=== PATIENT | female | born 1970 | race Caucasian/White ===

== ENCOUNTER → 2016-12-22 | Outpatient (CLI) | payer MEDICARE ==
[~2016-12-22] MED LIST: /BACL20TA; /BACL20TA OR; /DULO30CA; /DULO30CA OR; ACIDCAP; ACIDCAP OR; ALLE25CA; ALLE25CA OR; ATOR1TAB21 PO; BUSP5TA PO; CALC500T49; CALC500T49 OR; CHAN1PAK9 PO; CYCL10TA PO; DETR4CAP; DETR4CAP OR; EFFE75CA75 PO; EXCEDRINE MIGRAINE; EXCEDRINE OR; FIBER TABS; FIBER TABS OR; FLEX10TA2 PO; FLEXERIL OR; GLUC1000; GLUC1000 OR; IBUP200T2 PO; LISI5TAB PO; LODINE; LODINE PO; MULTIVIT; MULTIVIT OR; Metamucil PO; NEUR400C; NEUR400C OR; OXYB5SYP PO; OXYB5TAB5 OR; PRIL20CA; PRIL20CA OR; PROP10TAB OR; PROP20TA2; PROP60TA; PROP60TA OR; ROSU10TA PO; SOMA350T OR; TIZA2TAB3 PO; TOPA25TA PO; TOPI100T; TOPI100T OR; TOPI100T PO; TOPI25TA2; TRAM100T; TRAM100T OR; TRAM50TA2 OR; TYLE325T5 PO; VENL75CA47 PO; VENL75TA2 OR; ZANA2CAP OR; ZANA4CAP; [UNRECOGNIZED DRUG - OTHER]
--- NOTE | 2016-12-23 23:48 | ECWPNPC ---
PATIENT NAME: MITCHELL AYALA : 1970 GENDER: FEMALE VISIT DATE: 12/22/2016 DISCHARGE DATE: 12/22/16 1144 VISIT LOCKED DATE TIME: PHYSICIAN: ENA VICK RESOURCE: ENA VICK REASON FOR APPOINTMENT 1. ENTIRE BODY HISTORY OF PRESENT ILLNESS HISTORY OF PRESENT ILLNESS: PAIN THE PATIENT DESCRIBES THE PAIN... FALL RISK SCREENING: SCREENING :NO FALLS IN THE PAST YEAR TODAY'S VISIT: NOTES: RATES PAIN TODAY 10/10. DESCRIBES PAIN CONSTANT, ACHING, SHARP AND STABBING TENDER AND THROBBING.PAIN IS SPECIFICALLY OVER RIGHT SHOULDER BLADE WITH RADIATION TO RIGHT HAND. . CURRENT MEDICATIONS TAKING PRILOSEC 20 MG CAPSULE DELAYED RELEASE 1 CAP ORALLY BID TAKING OXYBUTYNIN CHLORIDE ER 5 MG TABLET EXTENDED RELEASE 24 HOUR 1 TABLET ORALLY BID TAKING BENADRYL ALLERGY 25 MG TABLET 1 TABLET NEEDED ORALLY EVERY 6 HRS TAKING TYLENOL EXTRA STRENGTH 500 MG TABLET 2 TABLET NEEDED ORALLY EVERY 6 HRS TAKING VENLAFAXINE HCL ER 150 MG CAPSULE EXTENDED RELEASE 24 HOUR 1 CAPSULE WITH FOOD ORALLY ONCE A DAY MDD=1 TAKING METFORMIN HCL 1000 MG TABLET 1 TABLET WITH MEALS ORALLY TWICE A DAY TAKING MELOXICAM 15 MG TABLET 1 TABLET ORALLY ONCE A DAY TAKING CYCLOBENZAPRINE HCL 10 MG TABLET 1 TABLET ORALLY THREE TIMES DAILY NEEDED MEDICATION LIST REVIEWED AND RECONCILED WITH THE PATIENT PAST MEDICAL HISTORY GERD BACK AND NECK PAIN ALLERGIES PENICILLIN (FOR ALLERGIES USE ONLY): ANAPHYLAXIS MOTRIN: NAUSEA/VOMITING CODEINE PHOSPHATE (FOR ALLERGIES USE ONLY): NAUSEA/VOMITING MORPHINE SULFATE: NAUSEA/VOMITING MILNACIPRAN HCL: NAUSEA/VOMITING SAVELLA: FLUSHING: ALLERGY SOCIAL HISTORY GENERAL: TOBACCO USE ARE YOU A:NONSMOKER LEARNING BARRIERS / SPECIAL NEEDS ORIENTED TO PLAN OF CARE: PATIENT, PAIN MANAGEMENT PATIENT, ORIENTED TO PLAN OF CARE: PATIENT, PAIN MANAGEMENT PATIENT. NEW PATIENT PAIN DIARY TODAY'S VISITNOTES FROM 0-10, WHAT LEVEL IS YOUR PAIN TODAY?0 PAIN CLINIC PFS, CLERGY, PUBLIC HEALTH REFERRALS PFS REFERRAL NEEDED?NO CLERGY REFERRAL NEEDED?NO PUBLIC HEALTH REFERRAL NEEDED?NO WAS THE PROVIDER NOTIFIED OF ANY PERTINENT INFO?NO PFS REFERRAL NEEDED?NO CLERGY REFERRAL NEEDED?NO PUBLIC HEALTH REFERRAL NEEDED?NO WAS THE PROVIDER NOTIFIED OF ANY PERTINENT INFO?NO REVIEW OF SYSTEMS CONSTITUTIONAL: ANY CHANGE IN YOUR MEDICAL CONDITION? NO . CHILLS NO . FEVER NO . INFECTION: DO YOU HAVE NEW INFECTIONS? NO . DO YOU HAVE HISTORY OF MRSA? NO . MUSCULOSKELETAL: ANY NEW PATTERNS OF PAIN OR NUMBNESS? YES PAIN IS INCREASING ESPECIALLY RIGHT ARM . GASTROENTEROLOGY: ANY NEW CHANGE IN BOWEL CONTROL? NO . GENITOURINARY: ANY NEW CHANGE IN BLADDER CONTROL? NO . IS THERE A CHANCE YOU COULD BE ? NO . HEMATOLOGY/LYMPH: DO YOU TAKE ANY BLOOD THINNERS? (FOR EXAMPLE- COUMADIN, PLAVIX, AGGRENOX, PLATEL, PRADAXA, OR XARELTO) NO . WHEN WAS YOUR LAST DOSE? DATE: TIME: . NEUROLOGY: HAVE YOU FALLEN IN THE PAST 6 MONTHS? YES . ANY NEW EXTREMITY NUMBNESS OR WEAKNESS? NO . CARDIOLOGY: DO YOU HAVE A PACEMAKER OR DEFIBRILLATOR? NO . RESPIRATORY: HAVE YOU BEEN SICK IN THE PAST WEEK? NO . FEVER NO . FLU LIKE SYMPTOMS? NO . COUGH NO . INTEGUMENTARY: DO YOU HAVE ANY RASHES OR OPEN SORES? NO . ALLERGIC/IMMUNO: ARE YOU ALLERGIC TO SHELLFISH OR IV DYE? NO . ANY NEW ALLERGIES? NO . PSYCHIATRIC: DO YOU HAVE THOUGHTS OF HURTING YOURSELF OR SOMEONE ELSE? NO . ARE YOU ABUSED, NEGLECTED, OR IN AN UNSAFE ENVIRONMENT? NO . ENDOCRINOLOGY: ARE YOU DIABETIC? YES . OTHER: DO YOU NEED ANY PRESCRIPTIONS? NO . IF YES, PLEASE LIST: ____ . ANY NEW PROBLEMS WITH YOUR MEDICATIONS? NO . WHEN DID YOU LAST EAT? ____ . WHEN DID YOU LAST DRINK? ____ . WHAT DID YOU LAST DRINK? ____ . NAME OF PERSON DRIVING YOU HOME? ____ . DO YOU HAVE ANY OTHER QUESTIONS OR CONCERNS NO . REVIEWED BY: PROVIDER: ENA TOLBERT . VITAL SIGNS WT 223 LBS, HT 67 IN, BMI 34.92 INDEX, BP 149/71 MM HG, HR 102 /MIN, RR 16 /MIN, TEMP 98.8 F, OXYGEN SAT % 99%, NA INITIALS SC 11:02, REVIEWED BY: KG. EXAMINATION GENERAL EXAMINATION: PSYCHALERT , ORIENTED X 3 , APPROPRIATE MOOD AND AFFECT . LUNGS:WHEEZES AND SQUEAKS IN LEFT UPPER LOBES ONLY. HEART:HEART RATE REGULAR. MUSCULOSKELETAL:TRIGGER POINTS: RIGHT SCAPULA. NO PAIN WITH SHOULDER JOINT MOVEMENT. TIGHT FIBROUS BANDS OVER RIGHT TRAPEZIOUS AND RIGHT SCAPULA. DECREASED ROM WITH TWIST OF THORAX AND NECK. , MUSCLE STRENGTH TESTING 5/5 BILATERAL UPPER EXTREMITIES. ASSESSMENTS TENDONITIS - M77.9 (PRIMARY) FIBROMYALGIA - M79.7 (PRIMARY) MYALGIA - M79.1 TREATMENT TENDONITIS REFILL VENLAFAXINE HCL ER CAPSULE EXTENDED RELEASE 24 HOUR, 150 MG, 1 CAPSULE WITH FOOD, ORALLY, ONCE A DAY MDD=1, 30 DAY(S), 30, REFILLS 5 NOTES: CONTINUE CURRENT MEDS AND ACTIVITIES. , # 226 TOBACCO USE SCREENING/INTERVENTION: PATIENT CURRENTLY USED TOBACCO. WAS OFFERED SMOKING CESSATION FOR GUIDANCE IN QUITTING THROUGH THE [facility] QUITS PROGRAM AND THE [facility] CESSATION PROGRAM. , FALLS CARE PLAN: 1. RECOMMEND REMOVING ALL THROW RUGS. 2. RECOMMEND NIGHT LIGHTS 3. RECOMMEND WEARING RUBBER SOLED SHOES AND TO NOT GO BAREFOOT. 4.. ADVISED TO CHANGE POSITION SLOWLY FROM SUPINE TO STANDING TO AVOID DIZZINESS. 5. BE CAUTIOUS OF ICE., #128 - SCREENING BMI AND F/U PLAN IN : BMI ABOVE NORMAL TODAY. DISCUSSED WITH PATIENT NUTRITIONAL FOOD CHOICES TO ASSIST WITH WEIGHT LOSS. RECCOMMENDED REDUCING SALT, SUGAR, SODA INTAKE. RECOMMEND INCREASE ACTIVITY TO INCLUDE WALKING ON A REGULAR BASIS. MYALGIA TRIGGER POINT 3 + ENA HELTON 12/22/2016 11:24:09 AM > RIGHT SHOULDER BLADE NECK AREA PREVENTIVE MEDICINE PAIN CLINIC TEACHING: PROCEDURE TEACHING WENT OVER PREOCEDURE EDUCATION/ ALSO GAVE INFO ON QUIT SMOKING CLASSES. PROCEDURE CODES FA211 ESTABILISHED PATIENT [facility] F[facility] CHARGE G8783 BP SCR PRFRM RCMDD DEFIND SCR INTVL G8730 PAIN ASSESS POS TOOL F/U PLAN DOC 3016F PT SCRND UNHLTHY [place] USE 1124F ACP DISCUSS-NO DSCNMKR DOCD 0518F FALL PLAN OF CARE DOCD G8427 DOC MEDS VERIFIED W/PT OR RE G8417 BMI >=30 CALCUATE W/FOLLOWUP 3288F FALL RISK ASSESSMENT DOCD 4004F PT TOBACCO SCREEN RCVD TLK DISPOSITION & COMMUNICATION FOLLOW UP AFTER INJECTION (REASON: CHECK AUTH FOR TPI) ELECTRONICALLY SIGNED BY DANIEL BARDALES ON 12/23/2016 AT 01:38 PM EST DISCLAIMER : THIS IS A VISIT SUMMARY EXTRACTED FROM THE [employer] CHART. IT IS NOT A COPY OF THE [employer] PROGRESS NOTE. MTDD
== END ==
LOC: M PAIN 11:00
PROVIDERS: ATTEND Nurse Practitioner Family
DX: Z09 Encounter for follow-up examination after completed treatment for conditions other than malignant neoplasm (principal); G89.29 Other chronic pain; M77.9 Enthesopathy, unspecified; M79.7 Fibromyalgia; K21.9 Gastro-esophageal reflux disease without esophagitis; Z88.0 Allergy status to penicillin; Z88.5 Allergy status to narcotic agent; Z88.4 Allergy status to anesthetic agent; Z88.8 Allergy status to other drugs, medicaments and biological substances; Z79.84 Long term (current) use of oral hypoglycemic drugs; Z79.899 Other long term (current) drug therapy

== ENCOUNTER 2016-12-24 14:28 | Emergency (ER) | payer MEDICARE ==
--- NOTE | 2016-12-24 15:05 | EDDOCDS ---
Physician Documentation [facility] Name: Allison Mehta Age: 46 yrs Sex: Female : 1970 Arrival Date: 12/24/2016 Time: 14:28 Bed TR8 Private MD: Gaurav Orellana [facility] Disposition: 12/24/16 14:54 Discharged to Home/Self Care. Impression: Diabetes mellitus due to underlying condition with diabetic neuropathy, unspecified - right arm. - Condition is Stable. - Discharge Instructions: Diabetic Neuropathy. - Prescriptions for Neurontin 300 mg Oral Capsule - take 1 capsule by ORAL route every 8 hours 1 tab QD day one, 1 tab BID day two, then as prescribed.; 30 capsule. - Medication Reconciliation form. - Follow up: Gaurav Orellana; When: Call to arrange an appointment; Reason: Wound/Symptom Recheck, Recheck today's complaints, Worsening of conditions, Continuance of care. - Problem is chronic. - Symptoms are unchanged. Historical: - Allergies: PENICILLINS; Savella; Motrin IB; Morphine; Codeine Phosphate; - Home Meds: 1. venlafaxine 150 mg oral cp24 1 cap once daily (Last dose: 12/24/2016 10:00) 2. Prilosec 20 mg Oral cpDR 1 cap 2 times per day (Last dose: 12/24/2016 05:30) 3. oxybutynin chloride 5 mg Oral tab 1 tab 2 times per day (Last dose: 12/24/2016 05:30) 4. metformin 1,000 mg Oral tab 1 tab 2 times per day (Last dose: 12/24/2016 05:30) 5. meloxicam 15 mg oral tab 1 tab once daily (Last dose: 12/24/2016 05:30) 6. cyclobenzaprine 10 mg Oral tab 1 tab 3 times per day (Last dose: 12/24/2016 05:30) 7. Tylenol Extra Strength 500 mg oral cap 2 caps as needed 8. ibuprofen 400 mg Oral tab 2 tabs as needed (Last dose: 12/24/2016 10:30) - PMHx: Diabetes - NIDDM: controlled; Fibromyalgia; - PSHx: Cyst removed left wrist; ; - Social history: Smoking status: Patient uses tobacco products, current every day smoker. No barriers to communication noted, The patient speaks fluent Vietnamese. - Family history: No immediate family members are acutely ill. - : The pt / caregiver states he / she is not on anticoagulants. Home medication list is obtained from the patient. - Exposure Risk Screening:: None identified. 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 7 in. (170.18 cm); Pain 10/10; 14:29 Body Mass Index 36.81 (106.59 kg, 170.18 cm) dem1 MDM: 15:02 Financial registration complete. lg Signatures: Guido Henry, RN RN [facility] Raman Greene, [facility] lg Virgilio López, PA-C PA-C cc10 Rafat NewtonRN RN mb9 MTDD
--- NOTE | 2016-12-24 15:06 | EDDOCDS ---
Nurse's Notes [facility] Name: Allison Mehta Age: 46 yrs Sex: Female : 1970 Arrival Date: 12/24/2016 Time: 14:28 Bed TR8 Private MD: Gaurav Orellana NCFM Diagnosis: Diabetes mellitus due to underlying condition with diabetic neuropathy, unspecified-right arm Presentation: 12/24 14:33 Presenting complaint: Patient states: Pain from right shoulder radiating down to right [facility] hand, ''I have pinched nerves'', scheduled for first appointment with pain clinic mid december. Pain is chronic, no new injury. Adult Sepsis Screening: The patient does not have new or worsening altered mentation. Patient's respiratory rate is less than 22. Systolic blood pressure is greater than 100. Patient has a qSOFA score of 0- Negative Sepsis Screen. Suicide/Homicide risk assessment- the patient denies having any suicidal and/or homicidal ideations and does not present with any other emotional, behavioral or mental health complaints. Status: Patient is not a service unit operator or dependent. Transition of care: patient was not received from another setting of care. 14:33 Acuity: ABHINAV Level 5 [facility] 14:33 Method Of Arrival: Walkin/Carried/Asstd [facility] Triage Assessment: 14:40 General: Appears in no apparent distress. Pain: Pain currently is 10 out of 10 on a [facility] pain scale. HIV screening NA for this visit Offered previously. 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 venlafaxine 150 mg oral cp24 1 cap once daily (Last dose: 12/24/2016 10:00) 2. Prilosec 20 mg Oral cpDR 1 cap 2 times per day (Last dose: 12/24/2016 05:30) 3. oxybutynin chloride 5 mg Oral tab 1 tab 2 times per day (Last dose: 12/24/2016 05:30) 4. metformin 1,000 mg Oral tab 1 tab 2 times per day (Last dose: 12/24/2016 05:30) 5. meloxicam 15 mg oral tab 1 tab once daily (Last dose: 12/24/2016 05:30) 6. cyclobenzaprine 10 mg Oral tab 1 tab 3 times per day (Last dose: 12/24/2016 05:30) 7. Tylenol Extra Strength 500 mg oral cap 2 caps as needed 8. ibuprofen 400 mg Oral tab 2 tabs as needed (Last dose: 12/24/2016 10:30) - PMHx: Diabetes - NIDDM: controlled; Fibromyalgia; - PSHx: Cyst removed left wrist; ; - Social history: Smoking status: Patient uses tobacco products, current every day smoker. No barriers to communication noted, The patient speaks fluent Kittitian. - Family history: No immediate family members are acutely ill. - : The pt / caregiver states he / she is not on anticoagulants. Home medication list is obtained from the patient. - Exposure Risk Screening:: None identified. Screenin:02 Screening information is obtained from the patient. Fall risk: No risks identified. mb9 Assistance ADL's: requires no assistance with activities of daily living. Abuse/DV Screen: The patient / caregiver reports he/she is: not in a situation that causes fear, pain or injury. Nutritional screening: No deficits noted. Advance Directives: There is no active DNR order. home support is adequate. Assessment: 15:02 General: Appears in no apparent distress, Behavior is appropriate for age, cooperative. mb9 Respiratory: Airway is patent Respiratory effort is even, unlabored. Vital Signs: 14:29 BP 167 / 86; Pulse 106; Resp 18; Temp 97.4(T); Pulse Ox 100% on R/A; Weight 106.59 kg; dem1 Height 5 ft. 7 in. (170.18 cm); Pain 10/10; 14:29 Body Mass Index 36.81 (106.59 kg, 170.18 cm) dem1 Vitals: 14:29 Log In Time: December 24, 2016 at 14:27. [facility] ED Course: 14:28 Patient visited by Tanisha Shin. dem1 14:28 Gaurav Orellana is Private Physician. dem1 14:28 Patient moved to Waiting dem1 14:29 Patient moved to Pre RCE dem1 14:35 Triage Initiated dwg 14:41 Patient moved to Triage 2 dwg 14:44 Virgilio López PA-C is [facility]. cc10 14:44 Pedro Sanchez MD is Attending Physician. cc10 14:44 Patient visited by Virgilio López PA-C. cc10 14:44 Patient visited by Virgilio López PA-C. cc10 14:54 Gaurav Orellana is Referral Physician. cc10 14:59 Patient moved to TR8 mb9 15:02 The patient / caregiver is instructed regarding the plan of care and ED course. mb9 15:02 No IV's were initiated during this patient's visit. No procedures done that require mb9 assistance. Order Results: There are currently no results for this order. Outcome: 14:54 Discharge ordered by Provider. cc10 15:02 Discharge Assessment: Patient awake, alert and oriented x 3. No cognitive and/or mb9 functional deficits noted. Patient verbalized understanding of disposition instructions. patient administered narcotics - no. The following High Risk Discharge criteria are identified: None. Discharged to home. Condition: good Condition: stable Condition: improved. Discharge instructions given to patient, Instructed on discharge instructions, follow up and referral plans. medication usage, Demonstrated understanding of instructions, medications, Pt was receptive of discharge instructions/ teaching. Prescriptions given X 1. No special radiology studies were completed. Property :Personal belongings accompany Pt. 15:04 Patient left the ED. mb9 Signatures: Guido Henry, RN RN Tanisha Joe [facility] Virgilio López PA-C PA-C cc10 Rafat Newton,RN RN mb9 MTDD
--- NOTE | 2016-12-26 16:05 | EDDOCDS ---
Physician Documentation [facility] Name: Allison Mehta Age: 46 yrs Sex: Female : 1970 Arrival Date: 12/24/2016 Time: 14:28 Bed TR8 Private MD: Gaurav Orellana [facility] Disposition: 12/24/16 14:54 Discharged to Home/Self Care. Impression: Diabetes mellitus due to underlying condition with diabetic neuropathy, unspecified - right arm. - Condition is Stable. - Discharge Instructions: Diabetic Neuropathy. - Prescriptions for Neurontin 300 mg Oral Capsule - take 1 capsule by ORAL route every 8 hours 1 tab QD day one, 1 tab BID day two, then as prescribed.; 30 capsule. - Medication Reconciliation form. - Follow up: Gaurav Orellana; When: Call to arrange an appointment; Reason: Wound/Symptom Recheck, Recheck today's complaints, Worsening of conditions, Continuance of care. - Problem is chronic. - Symptoms are unchanged. Historical: - Allergies: PENICILLINS; Savella; Motrin IB; Morphine; Codeine Phosphate; - Home Meds: 1. venlafaxine 150 mg oral cp24 1 cap once daily (Last dose: 12/24/2016 10:00) 2. Prilosec 20 mg Oral cpDR 1 cap 2 times per day (Last dose: 12/24/2016 05:30) 3. oxybutynin chloride 5 mg Oral tab 1 tab 2 times per day (Last dose: 12/24/2016 05:30) 4. metformin 1,000 mg Oral tab 1 tab 2 times per day (Last dose: 12/24/2016 05:30) 5. meloxicam 15 mg oral tab 1 tab once daily (Last dose: 12/24/2016 05:30) 6. cyclobenzaprine 10 mg Oral tab 1 tab 3 times per day (Last dose: 12/24/2016 05:30) 7. Tylenol Extra Strength 500 mg oral cap 2 caps as needed 8. ibuprofen 400 mg Oral tab 2 tabs as needed (Last dose: 12/24/2016 10:30) - PMHx: Diabetes - NIDDM: controlled; Fibromyalgia; - PSHx: Cyst removed left wrist; ; - Social history: Smoking status: Patient uses tobacco products, current every day smoker. No barriers to communication noted, The patient speaks fluent Czech. - Family history: No immediate family members are acutely ill. - : The pt / caregiver states he / she is not on anticoagulants. Home medication list is obtained from the patient. - Exposure Risk Screening:: None identified. 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 7 in. (170.18 cm); Pain 10/10; 14:29 Body Mass Index 36.81 (106.59 kg, 170.18 cm) dem1 MDM: 15:02 Financial registration complete. lg 15:13 [facility] Payment Agreement was scanned into [employer] and attached to record. lg 17:34 T-Sheet-- Draft Copy was scanned into [employer] and attached to record. klr Signatures: Guido Henry RN RN [facility] Raman Greene, [place] [facility] lg Virgilio López, PA-C PA-C cc10 Rafat Newton RN RN mb9 Lois Caicedo klr The chart was reviewed and I authenticate all verbal orders and agree with the evaluation and treatment provided.Attachments: 15:13 [facility] Payment Agreement lg 17:34 T-Sheet-- Draft Copy klr Chart Complete MTDD
--- NOTE | 2016-12-26 16:05 | EDDOCDS ---
Nurse's Notes [facility] Name: Allison Mehta Age: 46 yrs Sex: Female : 1970 Arrival Date: 12/24/2016 Time: 14:28 Bed TR8 Private MD: Gaurav Orellana NCFM Diagnosis: Diabetes mellitus due to underlying condition with diabetic neuropathy, unspecified-right arm Presentation: 12/24 14:33 Presenting complaint: Patient states: Pain from right shoulder radiating down to right [facility] hand, ''I have pinched nerves'', scheduled for first appointment with pain clinic mid december. Pain is chronic, no new injury. Adult Sepsis Screening: The patient does not have new or worsening altered mentation. Patient's respiratory rate is less than 22. Systolic blood pressure is greater than 100. Patient has a qSOFA score of 0- Negative Sepsis Screen. Suicide/Homicide risk assessment- the patient denies having any suicidal and/or homicidal ideations and does not present with any other emotional, behavioral or mental health complaints. 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 Transition of care: patient was not received from another setting of care. 14:33 Acuity: ABHINAV Level 5 [facility] 14:33 Method Of Arrival: Walkin/Carried/Asstd [facility] Triage Assessment: 14:40 General: Appears in no apparent distress. Pain: Pain currently is 10 out of 10 on a [facility] pain scale. HIV screening NA for this visit Offered previously. 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 venlafaxine 150 mg oral cp24 1 cap once daily (Last dose: 12/24/2016 10:00) 2. Prilosec 20 mg Oral cpDR 1 cap 2 times per day (Last dose: 12/24/2016 05:30) 3. oxybutynin chloride 5 mg Oral tab 1 tab 2 times per day (Last dose: 12/24/2016 05:30) 4. metformin 1,000 mg Oral tab 1 tab 2 times per day (Last dose: 12/24/2016 05:30) 5. meloxicam 15 mg oral tab 1 tab once daily (Last dose: 12/24/2016 05:30) 6. cyclobenzaprine 10 mg Oral tab 1 tab 3 times per day (Last dose: 12/24/2016 05:30) 7. Tylenol Extra Strength 500 mg oral cap 2 caps as needed 8. ibuprofen 400 mg Oral tab 2 tabs as needed (Last dose: 12/24/2016 10:30) - PMHx: Diabetes - NIDDM: controlled; Fibromyalgia; - PSHx: Cyst removed left wrist; ; - Social history: Smoking status: Patient uses tobacco products, current every day smoker. No barriers to communication noted, The patient speaks fluent German. - Family history: No immediate family members are acutely ill. - : The pt / caregiver states he / she is not on anticoagulants. Home medication list is obtained from the patient. - Exposure Risk Screening:: None identified. Screenin:02 Screening information is obtained from the patient. Fall risk: No risks identified. mb9 Assistance ADL's: requires no assistance with activities of daily living. Abuse/DV Screen: The patient / caregiver reports he/she is: not in a situation that causes fear, pain or injury. Nutritional screening: No deficits noted. Advance Directives: There is no active DNR order. home support is adequate. Assessment: 15:02 General: Appears in no apparent distress, Behavior is appropriate for age, cooperative. mb9 Respiratory: Airway is patent Respiratory effort is even, unlabored. Vital Signs: 14:29 BP 167 / 86; Pulse 106; Resp 18; Temp 97.4(T); Pulse Ox 100% on R/A; Weight 106.59 kg; dem1 Height 5 ft. 7 in. (170.18 cm); Pain 10/10; 14:29 Body Mass Index 36.81 (106.59 kg, 170.18 cm) dem1 Vitals: 14:29 Log In Time: December 24, 2016 at 14:27. [facility] ED Course: 14:28 Patient visited by Tanisha Shin. dem1 14:28 Gaurav Orellana is Private Physician. dem1 14:28 Patient moved to Waiting dem1 14:29 Patient moved to Pre RCE dem1 14:35 Triage Initiated dwg 14:41 Patient moved to Triage 2 dwg 14:44 Virgilio López PA-C is [facility] cc10 14:44 Pedro Sanchez MD is Attending Physician. cc10 14:44 Patient visited by Virgilio López PA-C. cc10 14:44 Patient visited by Virgilio López PA-C. cc10 14:54 Gaurav Orellana is Referral Physician. cc10 14:59 Patient moved to 8 mb9 15:02 The patient / caregiver is instructed regarding the plan of care and ED course. mb9 15:02 No IV's were initiated during this patient's visit. No procedures done that require mb9 assistance. 15:13 [facility] Payment Agreement was scanned into [employer] and attached to record. lg 17:34 T-Sheet-- Draft Copy was scanned into [employer] and attached to record. klr Order Results: There are currently no results for this order. Outcome: 14:54 Discharge ordered by Provider. cc10 15:02 Discharge Assessment: Patient awake, alert and oriented x 3. No cognitive and/or mb9 functional deficits noted. Patient verbalized understanding of disposition instructions. patient administered narcotics - no. The following High Risk Discharge criteria are identified: None. Discharged to home. Condition: good Condition: stable Condition: improved. Discharge instructions given to patient, Instructed on discharge instructions, follow up and referral plans. medication usage, Demonstrated understanding of instructions, medications, Pt was receptive of discharge instructions/ teaching. Prescriptions given X 1. No special radiology studies were completed. Property :Personal belongings accompany Pt. 15:04 Patient left the ED. mb9 Signatures: Guido Henry, RN RN dwg Raman Greene, [facility] lg Tanisha Shin dem1 Virgilio López PA-C PA-C cc10 Rafat Newton RN RN mb9 Lois Caicedo klr Chart Complete MTDD
--- NOTE | 2016-12-26 16:05 | EDDOCDS ---
Physician Documentation [facility] Name: Allison Mehta Age: 46 yrs Sex: Female : 1970 Arrival Date: 12/24/2016 Time: 14:28 Bed TR8 Private MD: Gaurav Orellana [facility] Disposition: 12/24/16 14:54 Discharged to Home/Self Care. Impression: Diabetes mellitus due to underlying condition with diabetic neuropathy, unspecified - right arm. - Condition is Stable. - Discharge Instructions: Diabetic Neuropathy. - Prescriptions for Neurontin 300 mg Oral Capsule - take 1 capsule by ORAL route every 8 hours 1 tab QD day one, 1 tab BID day two, then as prescribed.; 30 capsule. - Medication Reconciliation form. - Follow up: Gaurav Orellana; When: Call to arrange an appointment; Reason: Wound/Symptom Recheck, Recheck today's complaints, Worsening of conditions, Continuance of care. - Problem is chronic. - Symptoms are unchanged. Historical: - Allergies: PENICILLINS; Savella; Motrin IB; Morphine; Codeine Phosphate; - Home Meds: 1. venlafaxine 150 mg oral cp24 1 cap once daily (Last dose: 12/24/2016 10:00) 2. Prilosec 20 mg Oral cpDR 1 cap 2 times per day (Last dose: 12/24/2016 05:30) 3. oxybutynin chloride 5 mg Oral tab 1 tab 2 times per day (Last dose: 12/24/2016 05:30) 4. metformin 1,000 mg Oral tab 1 tab 2 times per day (Last dose: 12/24/2016 05:30) 5. meloxicam 15 mg oral tab 1 tab once daily (Last dose: 12/24/2016 05:30) 6. cyclobenzaprine 10 mg Oral tab 1 tab 3 times per day (Last dose: 12/24/2016 05:30) 7. Tylenol Extra Strength 500 mg oral cap 2 caps as needed 8. ibuprofen 400 mg Oral tab 2 tabs as needed (Last dose: 12/24/2016 10:30) - PMHx: Diabetes - NIDDM: controlled; Fibromyalgia; - PSHx: Cyst removed left wrist; ; - Social history: Smoking status: Patient uses tobacco products, current every day smoker. No barriers to communication noted, The patient speaks fluent Romanian. - Family history: No immediate family members are acutely ill. - : The pt / caregiver states he / she is not on anticoagulants. Home medication list is obtained from the patient. - Exposure Risk Screening:: None identified. [address] PRODUCTION: 12/24 14:40 LMP 10/14/2016 [facility] Vital Signs: 14:29 BP 167 / 86; Pulse 106; Resp 18; Temp 97.4(T); Pulse Ox 100% on R/A; Weight 106.59 kg / dem1 234.99 lbs; Height 5 ft. 7 in. (170.18 cm); Pain 10/10; 14:29 Body Mass Index 36.81 (106.59 kg, 170.18 cm) dem1 MDM: 15:02 Financial registration complete. lg 15:13 [facility] Payment Agreement was scanned into Touchbase and attached to record. lg 17:34 T-Sheet-- Draft Copy was scanned into Touchbase and attached to record. klr Signatures: Guido Henry RN RN [facility] Raman Greene, [place] [facility] lg Virgilio López, PA-C PA-C [id number] Rafat Newton RN RN mb9 Lois Caicedo klr The chart was reviewed and I authenticate all verbal orders and agree with the evaluation and treatment provided.Attachments: 15:13 [facility] Payment Agreement lg 17:34 T-Sheet-- Draft Copy klr Chart Complete MTDD
== END 2016-12-24 15:04 | disposition home or self-care (01) ==
LOC: M ED 14:28
DX: M54.10 Radiculopathy, site unspecified (principal); E11.40 Type 2 diabetes mellitus with diabetic neuropathy, unspecified; K21.9 Gastro-esophageal reflux disease without esophagitis; M79.7 Fibromyalgia; Z79.899 Other long term (current) drug therapy; Z79.84 Long term (current) use of oral hypoglycemic drugs; Z88.0 Allergy status to penicillin; Z88.5 Allergy status to narcotic agent; Z88.6 Allergy status to analgesic agent; Z88.8 Allergy status to other drugs, medicaments and biological substances; F17.210 Nicotine dependence, cigarettes, uncomplicated

== ENCOUNTER → 2017-03-22 | Outpatient (CLI) | payer MEDICARE ==
--- NOTE | 2017-04-08 00:04 | ECWPNPC ---
PATIENT NAME: MITCHELL AYALA : 1970 GENDER: FEMALE VISIT DATE: 03/22/2017 DISCHARGE DATE: 03/22/17 1221 VISIT LOCKED DATE TIME: PHYSICIAN: NEA VICK RESOURCE: ENA VICK HISTORY OF PRESENT ILLNESS HISTORY OF PRESENT ILLNESS: PAIN THE PATIENT DESCRIBES THE PAIN... FALL RISK SCREENING: SCREENING :NO FALLS IN THE PAST YEAR TODAY'S VISIT: NOTES: RATES PAIN TODAY 10/10. DESCRIBES PAIN CONSTANT, STABBING TENDER, THROBBING AND ACHING. PAIN IS LOCATED ALL OVER THE BODY. HAS BEEN VERY FATIGUED. HAS HAD SEVERAL EPS OF NEAR FALLING ASLEEP WHILE DRIVING. HAS HAD A FLARE OF PANIC ATTACKS. . CURRENT MEDICATIONS TAKING PRILOSEC 20 MG CAPSULE DELAYED RELEASE 1 CAP ORALLY BID TAKING OXYBUTYNIN CHLORIDE ER 5 MG TABLET EXTENDED RELEASE 24 HOUR 1 TABLET ORALLY BID TAKING BENADRYL ALLERGY 25 MG TABLET 1 TABLET NEEDED ORALLY EVERY 6 HRS TAKING TYLENOL EXTRA STRENGTH 500 MG TABLET 2 TABLET NEEDED ORALLY EVERY 6 HRS TAKING METFORMIN HCL 1000 MG TABLET 1 TABLET WITH MEALS ORALLY TWICE A DAY TAKING CYCLOBENZAPRINE HCL 10 MG TABLET 1 TABLET ORALLY THREE TIMES DAILY NEEDED TAKING VENLAFAXINE HCL ER 150 MG CAPSULE EXTENDED RELEASE 24 HOUR 1 CAPSULE WITH FOOD ORALLY ONCE A DAY MDD=1 TAKING GABAPENTIN 300 MG CAPSULE 1 CAPSULE ORALLY THREE TIMES A DAY TAKING MELOXICAM 15 MG TABLET 1 TABLET ORALLY ONCE A DAY TAKING EXCEDRIN MIGRAINE 250-250-65 MG TABLET 2 TABLETS NEEDED ORALLY EVERY 6 HRS MEDICATION LIST REVIEWED AND RECONCILED WITH THE PATIENT PAST MEDICAL HISTORY GERD BACK AND NECK PAIN ALLERGIES PENICILLIN (FOR ALLERGIES USE ONLY): ANAPHYLAXIS MOTRIN: NAUSEA/VOMITING CODEINE PHOSPHATE (FOR ALLERGIES USE ONLY): NAUSEA/VOMITING MORPHINE SULFATE: NAUSEA/VOMITING MILNACIPRAN HCL: NAUSEA/VOMITING SAVELLA: FLUSHING: ALLERGY REVIEW OF SYSTEMS CONSTITUTIONAL: ANY CHANGE IN YOUR MEDICAL CONDITION? NO . CHILLS NO . FEVER NO . INFECTION: DO YOU HAVE NEW INFECTIONS? NO . DO YOU HAVE HISTORY OF MRSA? NO . MUSCULOSKELETAL: ANY NEW PATTERNS OF PAIN OR NUMBNESS? YES . GASTROENTEROLOGY: ANY NEW CHANGE IN BOWEL CONTROL? NO . GENITOURINARY: ANY NEW CHANGE IN BLADDER CONTROL? NO . IS THERE A CHANCE YOU COULD BE ? NO . HEMATOLOGY/LYMPH: DO YOU TAKE ANY BLOOD THINNERS? (FOR EXAMPLE- COUMADIN, PLAVIX, AGGRENOX, PLATEL, PRADAXA, OR XARELTO) NO . WHEN WAS YOUR LAST DOSE? DATE: TIME: . NEUROLOGY: HAVE YOU FALLEN IN THE PAST 6 MONTHS? NO . ANY NEW EXTREMITY NUMBNESS OR WEAKNESS? NO . CARDIOLOGY: DO YOU HAVE A PACEMAKER OR DEFIBRILLATOR? NO . RESPIRATORY: HAVE YOU BEEN SICK IN THE PAST WEEK? NO . FEVER NO . FLU LIKE SYMPTOMS? NO . COUGH NO . INTEGUMENTARY: DO YOU HAVE ANY RASHES OR OPEN SORES? NO . ALLERGIC/IMMUNO: ARE YOU ALLERGIC TO SHELLFISH OR IV DYE? NO . ANY NEW ALLERGIES? NO . PSYCHIATRIC: DO YOU HAVE THOUGHTS OF HURTING YOURSELF OR SOMEONE ELSE? NO . ARE YOU ABUSED, NEGLECTED, OR IN AN UNSAFE ENVIRONMENT? NO . ENDOCRINOLOGY: ARE YOU DIABETIC? YES . OTHER: DO YOU NEED ANY PRESCRIPTIONS? NO . IF YES, PLEASE LIST: ____ . ANY NEW PROBLEMS WITH YOUR MEDICATIONS? NO . WHEN DID YOU LAST EAT? ____ . WHEN DID YOU LAST DRINK? ____ . WHAT DID YOU LAST DRINK? ____ . NAME OF PERSON DRIVING YOU HOME? ____ . DO YOU HAVE ANY OTHER QUESTIONS OR CONCERNS NO . PSYCHOLOGY: PATIENT COMPLAINING OF PANIC ATTACKS AND BEING UNABLE TO GO TO THE STORE WITHOUT SEVERE ANXIETY . REVIEWED BY: PROVIDER: ENA TOLBERT . VITAL SIGNS WT 225.8 LBS, HT 67 IN, BMI 35.36 INDEX, BP 150/82 MM HG, HR 100 /MIN, RR 16 /MIN, TEMP 97.8 F, OXYGEN SAT % 98%, NA INITIALS TL 1121, REVIEWED BY: CL. EXAMINATION GENERAL EXAMINATION: PSYCHALERT , ORIENTED X 3 , APPROPRIATE MOOD AND AFFECT . LUNGS:WHEEZES AND SQUEAKS IN LEFT UPPER LOBES ONLY. HEART:HEART RATE REGULAR. MUSCULOSKELETAL:TRIGGER POINTS: RIGHT SCAPULA. NO PAIN WITH SHOULDER JOINT MOVEMENT. TIGHT FIBROUS BANDS OVER RIGHT TRAPEZIOUS AND RIGHT SCAPULA. DECREASED ROM WITH TWIST OF THORAX AND NECK. , MUSCLE STRENGTH TESTING 5/5 BILATERAL UPPER EXTREMITIES. ASSESSMENTS TENDONITIS - M77.9 (PRIMARY) FIBROMYALGIA - M79.7 (PRIMARY) MYALGIA - M79.1 TREATMENT TENDONITIS REFILL GABAPENTIN CAPSULE, 300 MG, 1 CAPSULE, ORALLY, THREE TIMES A DAY, 30 DAY(S), 90, REFILLS 5 NOTES: TALK TO BARRON DENNIS ABOUT SLEEP APNEA. PROCEDURE CODES FA211 ESTABILISHED PATIENT [facility] FACILITY CHARGE G8730 PAIN ASSESS POS TOOL F/U PLAN DOC G8427 DOC MEDS VERIFIED W/PT OR RE DISPOSITION & COMMUNICATION FOLLOW UP 3 MONTHS ELECTRONICALLY SIGNED BY DANIEL BARDALES ON 04/07/2017 AT 02:19 PM EDT DISCLAIMER : THIS IS A VISIT SUMMARY EXTRACTED FROM THE [facility] CHART. IT IS NOT A COPY OF THE [employer] PROGRESS NOTE. ROMIE
== END ==
LOC: M PAIN 11:20
PROVIDERS: ATTEND Nurse Practitioner Family
DX: G89.29 Other chronic pain (principal); M77.9 Enthesopathy, unspecified; M79.7 Fibromyalgia; K21.9 Gastro-esophageal reflux disease without esophagitis; M54.2 Cervicalgia; Z88.0 Allergy status to penicillin; Z88.5 Allergy status to narcotic agent; Z88.8 Allergy status to other drugs, medicaments and biological substances; Z79.84 Long term (current) use of oral hypoglycemic drugs; Z79.899 Other long term (current) drug therapy

== ENCOUNTER 2017-05-11 16:11 | Emergency (ER) | payer MEDICARE ==
[~2017-05-11] VITALS: Ht 170.2 cm; Wt 98.8 kg
[2017-05-11] MEDS ORDERED: GABA-282 (16:25)
[2017-05-11] MEDS ORDERED: MELO15TA4 (16:25)
[2017-05-11] MEDS ORDERED: METF500T13 (16:25)
[2017-05-11] MEDS ORDERED: methylPREDNISolone INJ 125 MG/2 ML VIAL (J2930) IM ONE (17:15)
[2017-05-11] MEDS ORDERED: NEUR600T PO (17:23)
[2017-05-11 17:39] VITALS: BP 151/86
== END 2017-05-11 17:40 | disposition home or self-care (01) ==
LOC: M ED 16:11
DX: M54.41 Lumbago with sciatica, right side (principal); G89.29 Other chronic pain; M79.7 Fibromyalgia; R51 Headache; K21.9 Gastro-esophageal reflux disease without esophagitis; E11.9 Type 2 diabetes mellitus without complications; F41.9 Anxiety disorder, unspecified; F32.9 Major depressive disorder, single episode, unspecified; Z79.899 Other long term (current) drug therapy; Z79.84 Long term (current) use of oral hypoglycemic drugs; Z88.8 Allergy status to other drugs, medicaments and biological substances; Z88.5 Allergy status to narcotic agent; Z88.0 Allergy status to penicillin; F17.210 Nicotine dependence, cigarettes, uncomplicated
CPT/HCPCS: 96372; 99282; J2930

== ENCOUNTER → 2017-05-17 | Outpatient (CLI) | payer MEDICARE ==
[~2017-05-17] MED LIST changes: +CLEO300C2 PO; +GABA-282; +MELO15TA4; +METF500T13; +NAPR500T PO; +NEUR600T PO
[2017-05-17 12:04] LABS: BASO % 0.7 % (0.0-1.0); EOS # 0.2 K/mm3 (0.0-0.50); LARGE UNSTAINED CELL # 0.1 K/mm3 (0.0-0.4); LARGE UNSTAINED CELL % 1.8 % (0.0-4.0); LYMPH # 1.6 K/mm3 (1.5-4.5); LYMPH % 22.9 % (24.0-44.0); MEAN CORPUSCULAR HEMOGLOBIN 30.2 pg (27.0-33.0); MEAN CORPUSCULAR HGB CONC 33.3 g/dl (32.0-36.5); MEAN CORPUSCULAR VOLUME 90.5 fl (80.0-96.0); MONO # 0.4 K/mm3 (0.0-0.8); MONO % 6.6 % (0.0-5.0); NEUTROPHILS # 4.2 K/mm3 (1.8-7.7); NEUTROPHILS % 65.1 % (36.0-66.0); PLATELET COUNT, AUTOMATED 392 k/mm3 (150-450); RED CELL DISTRIBUTION WIDTH 14.6 % (11.5-14.5); WHITE BLOOD COUNT 6.5 K/mm3 (4.0-10.0)
--- NOTE | 2017-05-17 12:30 | REP ---
LUMBAR SPINE, SEVEN VIEWS: HISTORY: Fibromyalgia. There is no acute fracture or subluxation. . The L4-5 intervertebral disc is decreased in height consistent with disc degeneration. The facet joints are normal in appearance. IMPRESSION: Degenerative change as described above. Signed by Daniel Hernandez MD 05/17/2017 12:34 P
--- NOTE | 2017-05-17 12:31 | REP ---
RIGHT HIP, AP PELVIS, THREE VIEWS: There is no acute fracture or dislocation. The joint spaces are normal in appearance. IMPRESSION: There is no acute fracture or dislocation. Signed by Daniel Hernandez MD 05/17/2017 12:34 P
[2017-05-17 12:36] LABS: ALBUMIN 3.8 GM/DL (3.2-5.2); ALBUMIN/GLOBULIN RATIO 0.97 (1.00-1.93); ALKALINE PHOSPHATASE 108 U/L (45-117); ALT/SGPT 43 U/L (12-78); ANION GAP 9 MEQ/L (8-16); AST/SGOT 22 U/L (15-37); BILIRUBIN,TOTAL 0.2 MG/DL (0.2-1.0); BLOOD UREA NITROGEN 14 MG/DL (7-18); CALCIUM LEVEL 9.4 MG/DL (8.5-10.1); CARBON DIOXIDE LEVEL 25 MEQ/L (21-32); CHLORIDE LEVEL 99 MEQ/L (98-107); CREATININE FOR GFR 0.82 MG/DL (0.55-1.02); GLOMERULAR FILTRATION RATE > 60.0 (>58); GLUCOSE, FASTING 235 MG/DL (70-105); POTASSIUM SERUM 4.9 MEQ/L (3.5-5.1); SODIUM LEVEL 133 MEQ/L (136-145); T UPTAKE 28 % (30-39); THYROXINE (T4) 10.6 UG/DL (4.5-12.0); TOTAL PROTEIN 7.7 GM/DL (6.4-8.2)
== END ==
LOC: M LAB 11:11
PROVIDERS: ATTEND Nurse Practitioner Family
DX: M79.7 Fibromyalgia (principal); M46.1 Sacroiliitis, not elsewhere classified; M25.551 Pain in right hip; M51.36 Other intervertebral disc degeneration, lumbar region

== ENCOUNTER → 2017-05-17 | Outpatient (CLI) | payer MEDICARE ==
--- NOTE | 2017-06-05 23:47 | ECWPNPC ---
PATIENT NAME: MITCHELL AYALA : 1970 GENDER: FEMALE VISIT DATE: 05/17/2017 DISCHARGE DATE: 05/17/17 1036 VISIT LOCKED DATE TIME: PHYSICIAN: ENA VICK RESOURCE: ENA VICK REASON FOR APPOINTMENT 1. CHRONIC PAIN HISTORY OF PRESENT ILLNESS HISTORY OF PRESENT ILLNESS: PAIN THE PATIENT DESCRIBES THE PAIN... FALL RISK SCREENING: SCREENING :NO FALLS IN THE PAST YEAR TODAY'S VISIT: NOTES: HAS USUAL GENERALIZED PAIN. HAD ONSET OF NEW PAIN IN RIGHT LEG FROM GROIN TO RIGHT KNEE. IS HAVING TROUBLE RAISING THE LEG AND TROUBLE WALKING. IS HAVING SOME PAIN IN LOW BACK RIGHT SKYLER. TO ER 05/11/17 = WAS GIVEN IM SOLU-MEDROL AND GABAPENTIN WAS INCREASED. PAIN IMPROVED WHILE AT ER - BUT RETURNED TO SEVERE AFTER WALKING. PAIN DOES NOT LET UP. IS NOT ABLE TO GET TO STANDING POSITION. REACHING AND BENDING ARE VERY DIFFICULT.. CURRENT MEDICATIONS TAKING PRILOSEC 20 MG CAPSULE DELAYED RELEASE 1 CAP ORALLY BID TAKING OXYBUTYNIN CHLORIDE ER 5 MG TABLET EXTENDED RELEASE 24 HOUR 1 TABLET ORALLY BID TAKING BENADRYL ALLERGY 25 MG TABLET 1 TABLET NEEDED ORALLY EVERY 6 HRS TAKING TYLENOL EXTRA STRENGTH 500 MG TABLET 2 TABLET NEEDED ORALLY EVERY 6 HRS TAKING METFORMIN HCL 1000 MG TABLET 1 TABLET WITH MEALS ORALLY TWICE A DAY TAKING CYCLOBENZAPRINE HCL 10 MG TABLET 1 TABLET ORALLY THREE TIMES DAILY NEEDED TAKING VENLAFAXINE HCL ER 150 MG CAPSULE EXTENDED RELEASE 24 HOUR 1 CAPSULE WITH FOOD ORALLY ONCE A DAY MDD=1 TAKING MELOXICAM 15 MG TABLET 1 TABLET ORALLY ONCE A DAY TAKING EXCEDRIN MIGRAINE 250-250-65 MG TABLET 2 TABLETS NEEDED ORALLY EVERY 6 HRS TAKING GABAPENTIN 600 MG TABLET 1 CAPSULE ORALLY THREE TIMES A DAY MEDICATION LIST REVIEWED AND RECONCILED WITH THE PATIENT PAST MEDICAL HISTORY GERD BACK AND NECK PAIN ALLERGIES PENICILLIN (FOR ALLERGIES USE ONLY): ANAPHYLAXIS MOTRIN: NAUSEA/VOMITING CODEINE PHOSPHATE (FOR ALLERGIES USE ONLY): NAUSEA/VOMITING MORPHINE SULFATE: NAUSEA/VOMITING MILNACIPRAN HCL: NAUSEA/VOMITING SAVELLA: FLUSHING: ALLERGY REVIEW OF SYSTEMS REVIEWED BY: PROVIDER: ENA WILLAMSP . CONSTITUTIONAL: ANY CHANGE IN YOUR MEDICAL CONDITION? YES, ED LAST WED/ COULD NOT WALK/ SEVERE PAIN INCREASED GABAPENTIN/ SHOT SOLUMEDROL . CHILLS NO . FEVER NO . INFECTION: DO YOU HAVE NEW INFECTIONS? NO . DO YOU HAVE HISTORY OF MRSA? NO . MUSCULOSKELETAL: ANY NEW PATTERNS OF PAIN OR NUMBNESS? YES, MUCH WORSE . GASTROENTEROLOGY: ANY NEW CHANGE IN BOWEL CONTROL? NO . GENITOURINARY: ANY NEW CHANGE IN BLADDER CONTROL? NO . IS THERE A CHANCE YOU COULD BE ? NO . HEMATOLOGY/LYMPH: DO YOU TAKE ANY BLOOD THINNERS? (FOR EXAMPLE- COUMADIN, PLAVIX, AGGRENOX, PLATEL, PRADAXA, OR XARELTO) NO . WHEN WAS YOUR LAST DOSE? DATE: TIME: . NEUROLOGY: HAVE YOU FALLEN IN THE PAST 6 MONTHS? NO . ANY NEW EXTREMITY NUMBNESS OR WEAKNESS? NO . CARDIOLOGY: DO YOU HAVE A PACEMAKER OR DEFIBRILLATOR? NO . RESPIRATORY: HAVE YOU BEEN SICK IN THE PAST WEEK? NO . FEVER NO . FLU LIKE SYMPTOMS? NO . COUGH NO . INTEGUMENTARY: DO YOU HAVE ANY RASHES OR OPEN SORES? NO . ALLERGIC/IMMUNO: ARE YOU ALLERGIC TO SHELLFISH OR IV DYE? NO . ANY NEW ALLERGIES? NO . PSYCHIATRIC: DO YOU HAVE THOUGHTS OF HURTING YOURSELF OR SOMEONE ELSE? NO . ARE YOU ABUSED, NEGLECTED, OR IN AN UNSAFE ENVIRONMENT? NO . ENDOCRINOLOGY: ARE YOU DIABETIC? YES . OTHER: DO YOU NEED ANY PRESCRIPTIONS? YES . IF YES, PLEASE LIST: GABAPENTIN, MELOXICAM . ANY NEW PROBLEMS WITH YOUR MEDICATIONS? NO . WHEN DID YOU LAST EAT? ____ . WHEN DID YOU LAST DRINK? ____ . WHAT DID YOU LAST DRINK? ____ . NAME OF PERSON DRIVING YOU HOME? ____ . DO YOU HAVE ANY OTHER QUESTIONS OR CONCERNS NO . VITAL SIGNS WT 219.6 LBS, HT 67 IN, BMI 34.39 INDEX, BP 141/83 MM HG, HR 130 /MIN, RR 18 /MIN, TEMP 96.3 F, OXYGEN SAT % 97%, NA INITIALS TL 0951ELEVATED HR 130. RN N.L. AWARE- TLPALPATED RADIAL PULSE FEELS IRREGULAR AND PT FEELS CLAMMY TO TOUCH - REPORTED TO [facility] ([place]). EXAMINATION GENERAL EXAMINATION: PSYCHALERT , ORIENTED X 3 , APPROPRIATE MOOD AND AFFECT . LUNGS:SCATTERED WHEEZES, OTHERWISE CLEAR. HEART:HEART RATE IR-REGULAR, RAPID. MUSCULOSKELETAL:GROIN AREA PAIN WITH HIP FLEXION AND ROTATION. MILD TENDERNESS OVER RIGHT SIJ. CAN FLEX AT RIGHT FOOT WITHOUT PAIN OR WEAKNESS. DECREASED ROM WITH TWIST OF THORAX AND NECK. , MUSCLE STRENGTH TESTING 5/5 BILATERAL UPPER EXTREMITIES. ASSESSMENTS FIBROMYALGIA - M79.7 (PRIMARY) MYALGIA - M79.1 ACUTE RIGHT HIP PAIN - M25.551 SACROILIITIS - M46.1 TREATMENT FIBROMYALGIA CONTINUE MELOXICAM TABLET, 15 MG, 1 TABLET, ORALLY, ONCE A DAY LAB: CBC WITH DIFFERENTIAL WBC 6.5 (4.0-10.0 - K/MM3) RBC 4.80 (4.00-5.40 - M/MM3) HEMOGLOBIN 14.5 (12.0-16.0 - G/DL) HEMATOCRIT 43.4 (36.0-47.0 - %) MCV 90.5 (80.0-96.0 - FL) MCH 30.2 (27.0-33.0 - PG) MCHC 33.3 (32.0-36.5 - G/DL) RDW 14.6 (11.5-14.5 - %) PLATELET COUNT 392 (150-450 - K/MM3) LYMPH % 22.9 (24.0-44.0 - %) MONO % 6.6 (0.0-5.0 - %) NEUT % 65.1 (36.0-66.0 - %) EOS % 3.0 (0.0-3.0 - %) BASO % 0.7 (0.0-1.0 - %) NEUT # 4.2 (1.8-7.7 - K/MM3) LYMPH # 1.6 (1.5-4.5 - K/MM3) MONO # 0.4 (0.0-0.8 - K/MM3) EOS # 0.2 (0.0-0.50 - K/MM3) BASO # 0.0 (0.0-0.2 - K/MM3) LAB: COMPREHENSIVE METABOLIC PROFILE GLUCOSE 235 (70-105 - MG/DL) BUN 14 (7-18 - MG/DL) CREATININE 0.82 (0.55-1.02 - MG/DL) GLOMERULAR FILTRATION RATE > 60.0 (>58 - ) SODIUM 133 (136-145 - MEQ/L) POTASSIUM 4.9 (3.5-5.1 - MEQ/L) CHLORIDE 99 (98-107 - MEQ/L) CARBON DIOXIDE 25 (21-32 - MEQ/L) CALCIUM 9.4 (8.5-10.1 - MG/DL) AST/SGOT 22 (15-37 - U/L) ALT/SGPT 43 (12-78 - U/L) ALK PHOS 108 (45-117 - U/L) BILIRUBIN,TOTAL 0.2 (0.2-1.0 - MG/DL) TOTAL PROTEIN 7.7 (6.4-8.2 - GM/DL) ALBUMIN 3.8 (3.2-5.2 - GM/DL) ALB/GLOB RATIO 0.97 (1.00-1.93 - ) LAB: THYROID PROFILE T UPTAKE 28 (30-39 - %) THYROXINE (T4) 10.6 (4.5-12.0 - UG/DL) FTI 3.0 (1.3-4.8 - %) TSH ULTRASENSITIVE 1.170 (0.358-3.740 - UIU/ML) SMC SPINE, LUMBOSACRAL W/FLEX-[id number] HIP,AP,LAT TO INCLUDE [id number],SUSAN M 05/17/2017 10:24:00 AM > RIGHT HIP/GROIN PAIN NOTES: CONTINUE CURRENT MEDS. USE CANE FOR BALANCE. PROCEDURE CODES FA211 ESTABILISHED PATIENT [facility] FACILITY CHARGE G8730 PAIN ASSESS POS TOOL F/U PLAN DOC G8427 DOC MEDS VERIFIED W/PT OR RE DISPOSITION & COMMUNICATION FOLLOW UP 2 WEEKS (REASON: RIGHT HIP/BACK PAIN) ELECTRONICALLY SIGNED BY DANIEL BARDALES ON 06/05/2017 AT 01:26 PM EDT DISCLAIMER : THIS IS A VISIT SUMMARY EXTRACTED FROM THE [employer] CHART. IT IS NOT A COPY OF THE [employer] PROGRESS NOTE. ROMIE
== END ==
LOC: M PAIN 09:40
PROVIDERS: ATTEND Nurse Practitioner Family
DX: G89.29 Other chronic pain (principal); M79.7 Fibromyalgia; M25.551 Pain in right hip; E11.9 Type 2 diabetes mellitus without complications; M46.1 Sacroiliitis, not elsewhere classified; K21.9 Gastro-esophageal reflux disease without esophagitis; M54.2 Cervicalgia; Z88.0 Allergy status to penicillin; Z88.6 Allergy status to analgesic agent; Z88.5 Allergy status to narcotic agent; Z88.8 Allergy status to other drugs, medicaments and biological substances; Z79.84 Long term (current) use of oral hypoglycemic drugs; Z79.899 Other long term (current) drug therapy
CPT/HCPCS: 36415; 72114; 73502; 80053; 84436; 84443; 84479; 85025; G0463

== ENCOUNTER → 2017-06-01 | Outpatient (CLI) | payer MEDICARE ==
--- NOTE | 2017-06-25 23:31 | ECWPNPC ---
PATIENT NAME: MITCHELL AYALA : 1970 GENDER: FEMALE VISIT DATE: 06/01/2017 DISCHARGE DATE: 06/01/17 1550 VISIT LOCKED DATE TIME: PHYSICIAN: ENA VICK RESOURCE: ENA VICK REASON FOR APPOINTMENT 1. RIGHT HIP/BACK PAIN HISTORY OF PRESENT ILLNESS TODAY'S VISIT: NOTES: RATES PAIN TODAY 08/09. REPORTS THIS IS MUCH WORSE THANHER USUAL 08/09. HAS RASH ALL OVER THE BODY THAT STARTED SOON AFTER ER INCREASED GABAPENTIN TO 600MG TID. IS STILL HAVING SEVERE LOW BACK PAIN AND PAIN RADIATING INTO RIGHT GROIN AND INTO RIGHT ANTERIOR THIGH. CAN'T STAND STAND STILL, CAN'T PUT PRESSURE ON RIGHT LEG.. HISTORY OF PRESENT ILLNESS: PAIN THE PATIENT DESCRIBES THE PAIN... FALL RISK SCREENING: SCREENING :NO FALLS IN THE PAST YEAR CURRENT MEDICATIONS TAKING PRILOSEC 20 MG CAPSULE DELAYED RELEASE 1 CAP ORALLY BID TAKING OXYBUTYNIN CHLORIDE ER 5 MG TABLET EXTENDED RELEASE 24 HOUR 1 TABLET ORALLY BID TAKING BENADRYL ALLERGY 25 MG TABLET 1 TABLET NEEDED ORALLY EVERY 6 HRS TAKING TYLENOL EXTRA STRENGTH 500 MG TABLET 2 TABLET NEEDED ORALLY EVERY 6 HRS TAKING METFORMIN HCL 1000 MG TABLET 1 TABLET WITH MEALS ORALLY TWICE A DAY TAKING CYCLOBENZAPRINE HCL 10 MG TABLET 1 TABLET ORALLY THREE TIMES DAILY NEEDED TAKING VENLAFAXINE HCL ER 150 MG CAPSULE EXTENDED RELEASE 24 HOUR 1 CAPSULE WITH FOOD ORALLY ONCE A DAY MDD=1 TAKING EXCEDRIN MIGRAINE 250-250-65 MG TABLET 2 TABLETS NEEDED ORALLY EVERY 6 HRS TAKING GABAPENTIN 600 MG TABLET 1 CAPSULE ORALLY THREE TIMES A DAY TAKING MELOXICAM 15 MG TABLET 1 TABLET ORALLY ONCE A DAY MEDICATION LIST REVIEWED AND RECONCILED WITH THE PATIENT PAST MEDICAL HISTORY GERD BACK AND NECK PAIN ALLERGIES PENICILLIN (FOR ALLERGIES USE ONLY): ANAPHYLAXIS MOTRIN: NAUSEA/VOMITING CODEINE PHOSPHATE (FOR ALLERGIES USE ONLY): NAUSEA/VOMITING MORPHINE SULFATE: NAUSEA/VOMITING MILNACIPRAN HCL: NAUSEA/VOMITING SAVELLA: FLUSHING: ALLERGY GABAPENTIN: RASH: ALLERGY REVIEW OF SYSTEMS REVIEWED BY: PROVIDER: ENA TOLBERT . CONSTITUTIONAL: ANY CHANGE IN YOUR MEDICAL CONDITION? YES, RASH . CHILLS NO . FEVER NO . INFECTION: DO YOU HAVE NEW INFECTIONS? NO . DO YOU HAVE HISTORY OF MRSA? NO . MUSCULOSKELETAL: ANY NEW PATTERNS OF PAIN OR NUMBNESS? NO . GASTROENTEROLOGY: ANY NEW CHANGE IN BOWEL CONTROL? NO . GENITOURINARY: ANY NEW CHANGE IN BLADDER CONTROL? NO . IS THERE A CHANCE YOU COULD BE ? NO . HEMATOLOGY/LYMPH: DO YOU TAKE ANY BLOOD THINNERS? (FOR EXAMPLE- COUMADIN, PLAVIX, AGGRENOX, PLATEL, PRADAXA, OR XARELTO) NO . WHEN WAS YOUR LAST DOSE? DATE: TIME: . NEUROLOGY: HAVE YOU FALLEN IN THE PAST 6 MONTHS? NO . ANY NEW EXTREMITY NUMBNESS OR WEAKNESS? NO . CARDIOLOGY: DO YOU HAVE A PACEMAKER OR DEFIBRILLATOR? NO . RESPIRATORY: HAVE YOU BEEN SICK IN THE PAST WEEK? NO . FEVER NO . FLU LIKE SYMPTOMS? NO . COUGH NO . INTEGUMENTARY: DO YOU HAVE ANY RASHES OR OPEN SORES? NO . ALLERGIC/IMMUNO: ARE YOU ALLERGIC TO SHELLFISH OR IV DYE? NO . ANY NEW ALLERGIES? NO . PSYCHIATRIC: DO YOU HAVE THOUGHTS OF HURTING YOURSELF OR SOMEONE ELSE? NO . ARE YOU ABUSED, NEGLECTED, OR IN AN UNSAFE ENVIRONMENT? NO . ENDOCRINOLOGY: ARE YOU DIABETIC? YES . OTHER: DO YOU NEED ANY PRESCRIPTIONS? NO . IF YES, PLEASE LIST: ____ . ANY NEW PROBLEMS WITH YOUR MEDICATIONS? YES, RASH?? FROM NEURONTIN?? . WHEN DID YOU LAST EAT? ____ . WHEN DID YOU LAST DRINK? ____ . WHAT DID YOU LAST DRINK? ____ . NAME OF PERSON DRIVING YOU HOME? ____ . DO YOU HAVE ANY OTHER QUESTIONS OR CONCERNS NO . VITAL SIGNS WT 219.8 LBS, HT 67 IN, BMI 34.42 INDEX, BP 137/77 MM HG, HR 104 /MIN, RR 18 /MIN, TEMP 99.4 F, OXYGEN SAT % 96%, NA INITIALS SC 15:05, REVIEWED BY: NL. EXAMINATION GENERAL EXAMINATION: PSYCHALERT , ORIENTED X 3 , APPROPRIATE MOOD AND AFFECT . APPEARS VERY UNCOMFORTABLE. LUNGS:SCATTERED WHEEZES, OTHERWISE CLEAR. HEART:HEART RATE IR-REGULAR, RAPID. MUSCULOSKELETAL:GROIN AREA PAIN WITH HIP FLEXION AND ROTATION. MILD TENDERNESS OVER RIGHT SIJ. CAN FLEX AT RIGHT FOOT WITHOUT PAIN OR WEAKNESS. DECREASED ROM WITH TWIST OF THORAX AND NECK. , MUSCLE STRENGTH TESTING 5/5 BILATERAL UPPER EXTREMITIES. ASSESSMENTS FIBROMYALGIA - M79.7 (PRIMARY) MYALGIA - M79.1 ACUTE RIGHT HIP PAIN - M25.551 SACROILIITIS - M46.1 LUMBAR RADICULOPATHY - M54.16 TREATMENT FIBROMYALGIA START PREDNISONE TABLET, 20 MG, 1 TABLET, ORALLY, TWICE A DAY FOR 3 DAYS AND THEN 1/2 TAB BID X 3 DAYS, 6 DAYS, 9, REFILLS 0 [facility] MRI SPINE, L.S. WITHOUT [id number],SUSAN M 06/01/2017 3:33:33 PM > LEFT LEG WEAKNESS, LOW BACK PAIN, RADICULOPATHY INJECTION ANESTHETIC SACROILIAC JOINTENA VICK 06/01/2017 3:29:03 PM > RIGHT NOTES: WEAN OFF GABAPENTIN BY DECREASING BY 1/2 TAB (300 MG) EVERY 3 DAYS. PREVENTIVE MEDICINE REVIEWED PRE PROCEDURE CARE AND SIJ INFORMATION WITH PT EXPRESSING UNDERSTANDING. PROCEDURE CODES G8730 PAIN ASSESS POS TOOL F/U PLAN DOC G8427 DOC MEDS VERIFIED W/PT OR RE DISPOSITION & COMMUNICATION FOLLOW UP KEEP SCHED APPT WITH SW (REASON: CHECK AUTH FOR [facility]) ELECTRONICALLY SIGNED BY DANIEL BARDALES ON 06/25/2017 AT 02:03 PM EDT DISCLAIMER : THIS IS A VISIT SUMMARY EXTRACTED FROM THE [employer] CHART. IT IS NOT A COPY OF THE [employer] PROGRESS NOTE. ROMIE
== END ==
LOC: M PAIN 15:00
PROVIDERS: ATTEND Nurse Practitioner Family
DX: G89.29 Other chronic pain (principal); M79.7 Fibromyalgia; M25.551 Pain in right hip; M46.1 Sacroiliitis, not elsewhere classified; M54.16 Radiculopathy, lumbar region; E11.9 Type 2 diabetes mellitus without complications; K21.9 Gastro-esophageal reflux disease without esophagitis; M54.2 Cervicalgia; Z88.0 Allergy status to penicillin; Z88.5 Allergy status to narcotic agent; Z88.8 Allergy status to other drugs, medicaments and biological substances; Z79.84 Long term (current) use of oral hypoglycemic drugs; Z79.899 Other long term (current) drug therapy

== ENCOUNTER 2017-06-20 15:47 | Emergency (ER) | payer MEDICARE ==
[~2017-06-20] VITALS: Ht 170.2 cm; Wt 96.5 kg
[2017-06-20 15:47] VITALS: BP 149/74
[~2017-06-20 15:47] MED LIST changes: -CLEO300C2 PO; -NAPR500T PO
[2017-06-20] MEDS ORDERED: CLEO300C2 PO (17:49)
[2017-06-20] MEDS ORDERED: NAPR500T PO (17:52)
== END 2017-06-20 17:59 | disposition home or self-care (01) ==
LOC: M ED 15:47
DX: K00.0 Anodontia (principal); F17.210 Nicotine dependence, cigarettes, uncomplicated; E11.9 Type 2 diabetes mellitus without complications; G89.29 Other chronic pain; N32.9 Bladder disorder, unspecified; Z88.0 Allergy status to penicillin; Z88.5 Allergy status to narcotic agent; Z88.8 Allergy status to other drugs, medicaments and biological substances; Z79.899 Other long term (current) drug therapy; Z79.84 Long term (current) use of oral hypoglycemic drugs

== ENCOUNTER → 2017-06-22 | Outpatient (CLI) | payer MEDICARE ==
[~2017-06-22] MED LIST changes: +CLEO300C2 PO; +NAPR500T PO
--- NOTE | 2017-07-03 23:55 | ECWPNPC ---
PATIENT NAME: MITCHELL AYALA : 1970 GENDER: FEMALE VISIT DATE: 06/22/2017 DISCHARGE DATE: 06/22/17 1043 VISIT LOCKED DATE TIME: PHYSICIAN: ENA VICK RESOURCE: ENA VICK REASON FOR APPOINTMENT 1. CHRONIC PAIN HISTORY OF PRESENT ILLNESS HISTORY OF PRESENT ILLNESS: PAIN THE PATIENT DESCRIBES THE PAIN... FALL RISK SCREENING: SCREENING :NO FALLS IN THE PAST YEAR TODAY'S VISIT: NOTES: WAS UNALE TO DO INJECTION BECAUSE OF AN ABCESSED TOOTH AND NEEDED TO SEE A DENTIST.WENT TO ER FOR THE ABCESS AND THEY STARTED HER ON AN ABX AND PAIN MED. RATES PAIN TODAY 10/10. STILL HAS INTENSE PAIN RIGHT HIP/LOW BACK WITH RADIATION TO RIGHT LEG. RIGHT LEG PAIN. PREDNISONE HELPED TO BRING PAIN UNDER BETTER CONTROL.. CURRENT MEDICATIONS TAKING PRILOSEC 20 MG CAPSULE DELAYED RELEASE 1 CAP ORALLY BID TAKING OXYBUTYNIN CHLORIDE ER 5 MG TABLET EXTENDED RELEASE 24 HOUR 1 TABLET ORALLY BID TAKING BENADRYL ALLERGY 25 MG TABLET 1 TABLET NEEDED ORALLY EVERY 6 HRS TAKING TYLENOL EXTRA STRENGTH 500 MG TABLET 2 TABLET NEEDED ORALLY EVERY 6 HRS TAKING METFORMIN HCL 1000 MG TABLET 1 TABLET WITH MEALS ORALLY TWICE A DAY TAKING CYCLOBENZAPRINE HCL 10 MG TABLET 1 TABLET ORALLY THREE TIMES DAILY NEEDED TAKING VENLAFAXINE HCL ER 150 MG CAPSULE EXTENDED RELEASE 24 HOUR 1 CAPSULE WITH FOOD ORALLY ONCE A DAY MDD=1 TAKING EXCEDRIN MIGRAINE 250-250-65 MG TABLET 2 TABLETS NEEDED ORALLY EVERY 6 HRS TAKING GABAPENTIN 300 MG CAPSULE 1 CAPSULE ORALLY THREE TIMES A DAY TAKING MELOXICAM 15 MG TABLET 1 TABLET ORALLY ONCE A DAY TAKING CLINDAMYCIN HCL 300 MG CAPSULE 1 CAPSULE ORALLY EVERY 6 HRS TAKING NAPROXEN 500 MG TABLET 1 TABLET NEEDED ORALLY EVERY 12 HRS NOT-TAKING PREDNISONE 20 MG TABLET 1 TABLET ORALLY TWICE A DAY FOR 3 DAYS AND THEN 1/2 TAB BID X 3 DAYS MEDICATION LIST REVIEWED AND RECONCILED WITH THE PATIENT PAST MEDICAL HISTORY GERD BACK AND NECK PAIN ALLERGIES PENICILLIN (FOR ALLERGIES USE ONLY): ANAPHYLAXIS MOTRIN: NAUSEA/VOMITING CODEINE PHOSPHATE (FOR ALLERGIES USE ONLY): NAUSEA/VOMITING MORPHINE SULFATE: NAUSEA/VOMITING MILNACIPRAN HCL: NAUSEA/VOMITING SAVELLA: FLUSHING: ALLERGY SURGICAL HISTORY LEFT WRIST WITH BLADDER REPAIR HOSPITALIZATION/MAJOR DIAGNOSTIC PROCEDURE RELATED TO CHILDBIRTH AND SUGERY REVIEW OF SYSTEMS REVIEWED BY: PROVIDER: ENA TOLBERT . CONSTITUTIONAL: ANY CHANGE IN YOUR MEDICAL CONDITION? NO . CHILLS NO . FEVER NO . INFECTION: DO YOU HAVE NEW INFECTIONS? NO . DO YOU HAVE HISTORY OF MRSA? NO . MUSCULOSKELETAL: ANY NEW PATTERNS OF PAIN OR NUMBNESS? NO . GASTROENTEROLOGY: ANY NEW CHANGE IN BOWEL CONTROL? NO . GENITOURINARY: ANY NEW CHANGE IN BLADDER CONTROL? NO . IS THERE A CHANCE YOU COULD BE ? NO . HEMATOLOGY/LYMPH: DO YOU TAKE ANY BLOOD THINNERS? (FOR EXAMPLE- COUMADIN, PLAVIX, AGGRENOX, PLATEL, PRADAXA, OR XARELTO) NO . WHEN WAS YOUR LAST DOSE? DATE: TIME: . NEUROLOGY: HAVE YOU FALLEN IN THE PAST 6 MONTHS? NO . ANY NEW EXTREMITY NUMBNESS OR WEAKNESS? NO . CARDIOLOGY: DO YOU HAVE A PACEMAKER OR DEFIBRILLATOR? NO . RESPIRATORY: HAVE YOU BEEN SICK IN THE PAST WEEK? NO . FEVER NO . FLU LIKE SYMPTOMS? NO . COUGH NO . INTEGUMENTARY: DO YOU HAVE ANY RASHES OR OPEN SORES? NO . ALLERGIC/IMMUNO: ARE YOU ALLERGIC TO SHELLFISH OR IV DYE? NO . ANY NEW ALLERGIES? NO . PSYCHIATRIC: DO YOU HAVE THOUGHTS OF HURTING YOURSELF OR SOMEONE ELSE? NO . ARE YOU ABUSED, NEGLECTED, OR IN AN UNSAFE ENVIRONMENT? NO . ENDOCRINOLOGY: ARE YOU DIABETIC? YES . OTHER: DO YOU NEED ANY PRESCRIPTIONS? YES, MELOXICAM . IF YES, PLEASE LIST: ____ . ANY NEW PROBLEMS WITH YOUR MEDICATIONS? NO . WHEN DID YOU LAST EAT? ____ . WHEN DID YOU LAST DRINK? ____ . WHAT DID YOU LAST DRINK? ____ . NAME OF PERSON DRIVING YOU HOME? ____ . DO YOU HAVE ANY OTHER QUESTIONS OR CONCERNS NO . VITAL SIGNS WT 216.2 LBS, HT 67 IN, BMI 33.86 INDEX, BP 145/89 MM HG, HR 114 /MIN, RR 18 /MIN, TEMP 97.0 F, OXYGEN SAT % 96%, NA INITIALS SC 10:00, REVIEWED BY: EM. EXAMINATION GENERAL EXAMINATION: PSYCHALERT , ORIENTED X 3 , APPROPRIATE MOOD AND AFFECT . APPEARS VERY UNCOMFORTABLE. LUNGS:SCATTERED WHEEZES, OTHERWISE CLEAR. HEART:HEART RATE IR-REGULAR, RAPID. MUSCULOSKELETAL:GROIN AREA PAIN WITH HIP FLEXION AND ROTATION. MILD TENDERNESS OVER RIGHT SIJ. CAN FLEX AT RIGHT FOOT WITHOUT PAIN OR WEAKNESS. DECREASED ROM WITH TWIST OF THORAX AND NECK. , MUSCLE STRENGTH TESTING 5/5 BILATERAL UPPER EXTREMITIES. ASSESSMENTS FIBROMYALGIA - M79.7 (PRIMARY) MYALGIA - M79.1 ACUTE RIGHT HIP PAIN - M25.551 SACROILIITIS - M46.1 LUMBAR RADICULOPATHY - M54.16 TREATMENT FIBROMYALGIA REFILL VENLAFAXINE HCL ER CAPSULE EXTENDED RELEASE 24 HOUR, 150 MG, 1 CAPSULE WITH FOOD, ORALLY, ONCE A DAY MDD=1, 30 DAY(S), 30, REFILLS 5 REFILL GABAPENTIN CAPSULE, 300 MG, 1 CAPSULE, ORALLY, THREE TIMES A DAY, 30 DAY(S), 90 CAPSULE, REFILLS 2 REFILL MELOXICAM TABLET, 15 MG, 1 TABLET, ORALLY, ONCE A DAY, 30 DAY(S), 30 TABLET, REFILLS 2 NOTES: FOLLOW UP WITH DENTIST. CALL TO SCHEDULE INJECTION AFTER DENTAL WORK DONE. PROCEDURE CODES FA211 ESTABILISHED PATIENT [facility] CHARGE G8730 PAIN ASSESS POS TOOL F/U PLAN DOC G8427 DOC MEDS VERIFIED W/PT OR RE DISPOSITION & COMMUNICATION FOLLOW UP 1 MONTH (REASON: BACK PAIN/FIBROMYALGIA) ELECTRONICALLY SIGNED BY DANIEL BARDALES ON 07/03/2017 AT 03:56 PM EDT DISCLAIMER : THIS IS A VISIT SUMMARY EXTRACTED FROM THE [facility] CHART. IT IS NOT A COPY OF THE [facility] PROGRESS NOTE. ROMIE
== END ==
LOC: M PAIN 10:00
PROVIDERS: ATTEND Nurse Practitioner Family
DX: G89.29 Other chronic pain (principal); M79.7 Fibromyalgia; M25.551 Pain in right hip; M46.1 Sacroiliitis, not elsewhere classified; M54.16 Radiculopathy, lumbar region; E11.9 Type 2 diabetes mellitus without complications; K21.9 Gastro-esophageal reflux disease without esophagitis; Z88.0 Allergy status to penicillin; Z88.5 Allergy status to narcotic agent; Z88.6 Allergy status to analgesic agent; Z88.8 Allergy status to other drugs, medicaments and biological substances; Z79.84 Long term (current) use of oral hypoglycemic drugs; Z79.1 Long term (current) use of non-steroidal anti-inflammatories (NSAID); Z79.899 Other long term (current) drug therapy

== ENCOUNTER → 2017-10-14 | Outpatient (CLI) | payer MEDICARE | LOC: M PAIN 11:30 | DX: M79.7 Fibromyalgia (principal); M25.551 Pain in right hip; M46.1 Sacroiliitis, not elsewhere classified; M54.16 Radiculopathy, lumbar region; E11.9 Type 2 diabetes mellitus without complications; K21.9 Gastro-esophageal reflux disease without esophagitis; Z88.0 Allergy status to penicillin; Z88.6 Allergy status to analgesic agent; Z88.5 Allergy status to narcotic agent; Z88.8 Allergy status to other drugs, medicaments and biological substances; Z79.4 Long term (current) use of insulin; Z79.899 Other long term (current) drug therapy | CPT/HCPCS: G0463 ==

== ENCOUNTER → 2017-11-17 | Outpatient (CLI) | payer MEDICARE ==
[2017-11-17 11:55] LABS: BASO % 0.5 % (0.0-1.0); EOS # 0.1 10^3/uL (0.0-0.50); EOS % 0.8 % (0.0-3.0); HEMATOCRIT 37.8 % (36.0-47.0); HEMOGLOBIN 12.4 g/dl (12.0-16.0); IMMATURE GRANULOCYTE # 0.1 10^3/uL (0-0); IMMATURE GRANULOCYTE % 0.7 % (0-0); LYMPH # 2.9 10^3/uL (1.5-4.5); LYMPH % 39.9 % (24.0-44.0); MEAN CORPUSCULAR HEMOGLOBIN 29.6 pg (27.0-33.0); MEAN CORPUSCULAR HGB CONC 32.8 g/dl (32.0-36.5); MEAN CORPUSCULAR VOLUME 90.2 fl (80.0-96.0); MONO # 0.6 10^3/uL (0.0-0.8); MONO % 8.2 % (0.0-5.0); NEUTROPHILS # 3.7 10^3/uL (1.8-7.7); NEUTROPHILS % 49.9 % (36.0-66.0); PLATELET COUNT, AUTOMATED 376 10^3/uL (150-450); RED BLOOD COUNT 4.19 10^6/uL (4.00-5.40); RED CELL DISTRIBUTION WIDTH 13.5 % (11.5-14.5); WHITE BLOOD COUNT 7.3 10^3/uL (4.0-10.0)
[2017-11-17 12:26] LABS: ALBUMIN 3.9 GM/DL (3.2-5.2); ALBUMIN/GLOBULIN RATIO 1.26 (1.00-1.93); ALKALINE PHOSPHATASE 76 U/L (45-117); ALT/SGPT 25 U/L (12-78); ANION GAP 6 MEQ/L (8-16); AST/SGOT 11 U/L (7-37); BILIRUBIN,TOTAL 0.2 MG/DL (0.2-1.0); BLOOD UREA NITROGEN 12 MG/DL (7-18); CALCIUM LEVEL 8.6 MG/DL (8.5-10.1); CARBON DIOXIDE LEVEL 27 MEQ/L (21-32); CHLORIDE LEVEL 103 MEQ/L (98-107); CHOLESTEROL LEVEL 296 MG/DL (<200); CHOLESTEROL RISK RATIO 7.219 (<5); CREATININE FOR GFR 0.69 MG/DL (0.55-1.02); GLOMERULAR FILTRATION RATE > 60.0 (>58); GLUCOSE, FASTING 118 MG/DL (70-105); HDL CHOLESTEROL 41 MG/DL (>40); LDL CHOLESTEROL 179.6 MG/DL (<100); NON-HDL-C 255 MG/DL; POTASSIUM SERUM 4.9 MEQ/L (3.5-5.1); SODIUM LEVEL 136 MEQ/L (136-145); TRIGLYCERIDES LEVEL 377 MG/DL (<150)
== END ==
LOC: M LAB 11:03
DX: E78.5 Hyperlipidemia, unspecified (principal)
CPT/HCPCS: 80053

== ENCOUNTER → 2017-11-17 | Outpatient (CLI) | payer MEDICARE | LOC: M PAIN 09:30 | DX: G89.29 Other chronic pain (principal); M79.7 Fibromyalgia; K21.9 Gastro-esophageal reflux disease without esophagitis; E11.9 Type 2 diabetes mellitus without complications; F17.210 Nicotine dependence, cigarettes, uncomplicated; Z79.84 Long term (current) use of oral hypoglycemic drugs; Z79.899 Other long term (current) drug therapy; Z88.0 Allergy status to penicillin; Z88.5 Allergy status to narcotic agent; Z88.6 Allergy status to analgesic agent; Z88.8 Allergy status to other drugs, medicaments and biological substances | CPT/HCPCS: 80053 ==

== ENCOUNTER → 2017-12-12 | Outpatient (CLI) | payer MEDICARE | LOC: M PAIN 08:45 | DX: M79.7 Fibromyalgia (principal); K21.9 Gastro-esophageal reflux disease without esophagitis; F17.200 Nicotine dependence, unspecified, uncomplicated; Z79.84 Long term (current) use of oral hypoglycemic drugs; Z79.899 Other long term (current) drug therapy; Z88.0 Allergy status to penicillin; Z88.5 Allergy status to narcotic agent; Z88.6 Allergy status to analgesic agent; Z88.8 Allergy status to other drugs, medicaments and biological substances | CPT/HCPCS: G0463 ==

== ENCOUNTER → 2017-12-16 | Outpatient (CLI) | payer MEDICARE ==
[~2017-12-16] MED LIST changes: -/BACL20TA; -/BACL20TA OR; -/DULO30CA; -/DULO30CA OR; -ACIDCAP; -ACIDCAP OR; -ALLE25CA; -ALLE25CA OR; -ATOR1TAB21 PO; +BUPIVACAINE HCL 0.25% 10 ML VIAL As Ordered; +BUPIVACAINE HCL 0.25% 30 ML VIAL As Ordered; -BUSP5TA PO; -CALC500T49; -CALC500T49 OR; -CHAN1PAK9 PO; -CLEO300C2 PO; -CYCL10TA PO; -DETR4CAP; -DETR4CAP OR; -EFFE75CA75 PO; -EXCEDRINE MIGRAINE; -EXCEDRINE OR; -FIBER TABS; -FIBER TABS OR; -FLEX10TA2 PO; -FLEXERIL OR; -GABA-282; -GLUC1000; -GLUC1000 OR; -IBUP200T2 PO; -LISI5TAB PO; -LODINE; -LODINE PO; -MELO15TA4; -METF500T13; -MULTIVIT; -MULTIVIT OR; -Metamucil PO; -NAPR500T PO; -NEUR400C; -NEUR400C OR; -NEUR600T PO; -OXYB5SYP PO; -OXYB5TAB5 OR; -PRIL20CA; -PRIL20CA OR; -PROP10TAB OR; -PROP20TA2; -PROP60TA; -PROP60TA OR; -ROSU10TA PO; -SOMA350T OR; -TIZA2TAB3 PO; -TOPA25TA PO; -TOPI100T; -TOPI100T OR; -TOPI100T PO; -TOPI25TA2; -TRAM100T; -TRAM100T OR; -TRAM50TA2 OR; +TRIAMCINOLONE ACETONIDE SUSP 40 MG/ML VIAL (J3301) As Ordered; -TYLE325T5 PO; -VENL75CA47 PO; -VENL75TA2 OR; -ZANA2CAP OR; -ZANA4CAP; -[UNRECOGNIZED DRUG - OTHER]
== END ==
LOC: M PAIN 10:15
DX: G89.29 Other chronic pain (principal); M25.511 Pain in right shoulder; M25.512 Pain in left shoulder; M54.5 Low back pain; M79.1 Myalgia; E11.9 Type 2 diabetes mellitus without complications; K21.9 Gastro-esophageal reflux disease without esophagitis; F17.200 Nicotine dependence, unspecified, uncomplicated; Z79.84 Long term (current) use of oral hypoglycemic drugs; Z79.899 Other long term (current) drug therapy; Z88.0 Allergy status to penicillin; Z88.5 Allergy status to narcotic agent; Z88.6 Allergy status to analgesic agent; Z88.8 Allergy status to other drugs, medicaments and biological substances
CPT/HCPCS: J3301

== ENCOUNTER → 2018-01-16 | Outpatient (CLI) | payer MEDICARE | LOC: M PAIN 10:45 | DX: M79.7 Fibromyalgia (principal); G25.81 Restless legs syndrome; E11.9 Type 2 diabetes mellitus without complications; K21.9 Gastro-esophageal reflux disease without esophagitis; F17.200 Nicotine dependence, unspecified, uncomplicated; Z79.84 Long term (current) use of oral hypoglycemic drugs; Z79.899 Other long term (current) drug therapy; Z88.0 Allergy status to penicillin; Z88.5 Allergy status to narcotic agent; Z88.6 Allergy status to analgesic agent; Z88.8 Allergy status to other drugs, medicaments and biological substances | CPT/HCPCS: G0463 ==

== ENCOUNTER 2018-02-03 14:21 | Emergency (ER) | payer MEDICARE | END 2018-02-03 17:08 | disposition home or self-care (01) | LOC: M ED 14:21 | DX: K04.7 Periapical abscess without sinus (principal); G89.4 Chronic pain syndrome; M54.2 Cervicalgia; R51 Headache; K21.9 Gastro-esophageal reflux disease without esophagitis; F17.210 Nicotine dependence, cigarettes, uncomplicated; Z88.8 Allergy status to other drugs, medicaments and biological substances; Z88.5 Allergy status to narcotic agent; Z88.0 Allergy status to penicillin; Z79.899 Other long term (current) drug therapy; Z79.84 Long term (current) use of oral hypoglycemic drugs | CPT/HCPCS: 99283 ==

== ENCOUNTER → 2018-02-10 | Outpatient (CLI) | payer MEDICARE | LOC: M PAIN 11:30 | DX: M79.7 Fibromyalgia (principal); G25.81 Restless legs syndrome; K21.9 Gastro-esophageal reflux disease without esophagitis; F17.210 Nicotine dependence, cigarettes, uncomplicated; Z79.84 Long term (current) use of oral hypoglycemic drugs; Z79.899 Other long term (current) drug therapy; Z88.0 Allergy status to penicillin; Z88.5 Allergy status to narcotic agent; Z88.8 Allergy status to other drugs, medicaments and biological substances | CPT/HCPCS: G0463 ==

== ENCOUNTER 2018-02-19 00:22 | Emergency (ER) | payer MEDICARE | END 2018-02-19 05:21 | disposition left against medical advice (07) | LOC: M ED 00:22 | DX: Z53.21 Procedure and treatment not carried out due to patient leaving prior to being seen by health care provider (principal) ==

== ENCOUNTER 2018-02-24 16:01 | Emergency (ER) | payer MEDICARE ==
[2018-02-24] MEDS: MAGIC MOUTHWASH SUSPENSION BTL SS (16:52)
== END 2018-02-24 17:26 | disposition home or self-care (01) ==
LOC: M ED 16:01
DX: K02.9 Dental caries, unspecified (principal); R68.84 Jaw pain; K08.89 Other specified disorders of teeth and supporting structures; E11.9 Type 2 diabetes mellitus without complications; K06.9 Disorder of gingiva and edentulous alveolar ridge, unspecified; K21.9 Gastro-esophageal reflux disease without esophagitis; F17.200 Nicotine dependence, unspecified, uncomplicated; Z79.2 Long term (current) use of antibiotics; Z88.8 Allergy status to other drugs, medicaments and biological substances; Z88.5 Allergy status to narcotic agent; Z88.0 Allergy status to penicillin
CPT/HCPCS: 99282

== ENCOUNTER → 2018-03-10 | Outpatient (CLI) | payer MEDICARE | LOC: M PAIN 10:30 | DX: M79.7 Fibromyalgia (principal); G25.81 Restless legs syndrome; E11.9 Type 2 diabetes mellitus without complications; K21.9 Gastro-esophageal reflux disease without esophagitis; F17.210 Nicotine dependence, cigarettes, uncomplicated; Z79.84 Long term (current) use of oral hypoglycemic drugs; Z79.899 Other long term (current) drug therapy; Z88.0 Allergy status to penicillin; Z88.5 Allergy status to narcotic agent; Z88.6 Allergy status to analgesic agent; Z88.8 Allergy status to other drugs, medicaments and biological substances | CPT/HCPCS: G0463 ==

== ENCOUNTER → 2018-05-10 | Outpatient (CLI) | payer MEDICARE | LOC: M PAIN 09:30 | DX: M79.7 Fibromyalgia (principal); G25.81 Restless legs syndrome; E11.9 Type 2 diabetes mellitus without complications; F17.210 Nicotine dependence, cigarettes, uncomplicated; Z79.84 Long term (current) use of oral hypoglycemic drugs; Z79.899 Other long term (current) drug therapy; Z88.0 Allergy status to penicillin; Z88.5 Allergy status to narcotic agent; Z88.6 Allergy status to analgesic agent; Z88.8 Allergy status to other drugs, medicaments and biological substances | CPT/HCPCS: G0463 ==

== ENCOUNTER → 2018-08-10 | Outpatient (CLI) | payer MEDICARE | LOC: M PAIN 09:00 | DX: M79.7 Fibromyalgia (principal); G25.81 Restless legs syndrome; K21.9 Gastro-esophageal reflux disease without esophagitis; M54.2 Cervicalgia; F17.210 Nicotine dependence, cigarettes, uncomplicated; E11.9 Type 2 diabetes mellitus without complications; Z79.84 Long term (current) use of oral hypoglycemic drugs; Z79.891 Long term (current) use of opiate analgesic; Z79.899 Other long term (current) drug therapy; Z88.0 Allergy status to penicillin; Z88.5 Allergy status to narcotic agent; Z88.8 Allergy status to other drugs, medicaments and biological substances; Z88.6 Allergy status to analgesic agent | CPT/HCPCS: G0463 ==

== ENCOUNTER 2018-08-21 17:03 | Emergency (ER) | payer MEDICARE ==
[2018-08-21 18:58] LABS: APPEARANCE, URINE CLEAR (CLEAR); BACTERIA, URINE AUTO NEGATIVE (NEGATIVE); BILIRUBIN, URINE AUTO NEGATIVE (NEGATIVE); BLOOD, URINE BLOOD NEGATIVE (NEGATIVE); COLOR, URINE STRAW (YELLOW); GLUCOSE, URINE (UA) AUTO 3+ mg/dL (NEGATIVE); KETONE, URINE AUTO NEGATIVE (NEGATIVE); LEUKOCYTE ESTERASE, URINE AUTO NEGATIVE (NEGATIVE); NITRITE, URINE AUTO NEGATIVE (NEGATIVE); PROTEIN, URINE AUTO NEGATIVE (NEGATIVE); RBC, URINE AUTO 1 /HPF (0-3); SQUAMOUS EPITHELIAL CELL UR AU 1 /HPF (0-6); UROBILINOGEN, URINE AUTO 0.2 mg/dL (0.0-2.0); WBC, URINE AUTO 1 /HPF (0-3)
[2018-08-21 19:16] LABS: BEDSIDE GLUCOSE 366 MG/DL (70-105)
[2018-08-21] MEDS: NS 1,000 ML IV (21:15)
[2018-08-21 21:45] LABS: BASO % 0.2 % (0.0-1.0); EOS # 0.1 10^3/uL (0.0-0.50); EOS % 0.7 % (0.0-3.0); HEMATOCRIT 45.2 % (36.0-47.0); HEMOGLOBIN 14.7 g/dl (12.0-15.5); IMMATURE GRANULOCYTE % 0.5 % (0-3.0); LYMPH # 3.1 10^3/uL (1.5-4.5); LYMPH % 37.8 % (24.0-44.0); MEAN CORPUSCULAR HEMOGLOBIN 28.5 pg (27.0-33.0); MEAN CORPUSCULAR HGB CONC 32.5 g/dl (32.0-36.5); MEAN CORPUSCULAR VOLUME 87.8 fl (80.0-96.0); MONO # 0.6 10^3/uL (0.0-0.8); MONO % 6.8 % (0.0-5.0); NEUTROPHILS # 4.5 10^3/uL (1.8-7.7); PLATELET COUNT, AUTOMATED 451 10^3/uL (150-450); RED BLOOD COUNT 5.15 10^6/uL (4.00-5.40); RED CELL DISTRIBUTION WIDTH 14.4 % (11.5-14.5); WHITE BLOOD COUNT 8.3 10^3/uL (4.0-10.0)
[2018-08-21 21:54] LABS: ALBUMIN 3.9 GM/DL (3.2-5.2); ALKALINE PHOSPHATASE 118 U/L (45-117); ALT/SGPT 23 U/L (12-78); ANION GAP 11 MEQ/L (8-16); AST/SGOT 6 U/L (7-37); BILIRUBIN,DIRECT < 0.1 MG/DL (0.0-0.2); BILIRUBIN,TOTAL 0.3 MG/DL (0.2-1.0); BLOOD UREA NITROGEN 16 MG/DL (7-18); CALCIUM LEVEL 9.6 MG/DL (8.5-10.1); CARBON DIOXIDE LEVEL 25 MEQ/L (21-32); CHLORIDE LEVEL 96 MEQ/L (98-107); CREATININE FOR GFR 0.88 MG/DL (0.55-1.30); GLOMERULAR FILTRATION RATE > 60.0 (>58); GLUCOSE, FASTING 299 MG/DL (70-100); POTASSIUM SERUM 4.4 MEQ/L (3.5-5.1); SODIUM LEVEL 132 MEQ/L (136-145); TOTAL PROTEIN 7.8 GM/DL (6.4-8.2)
[2018-08-21 21:57] LABS: ACETONE/KETONE 1.07 MG/DL (<2.81); CK-MB VALUE MASS < 1.0 NG/ML (<3.6); CPK CREATINE PHOSPHOKINASE 40 U/L (26-192); LIPASE 194 U/L (73-393); MAGNESIUM LEVEL 1.8 MG/DL (1.8-2.4); TROPONIN I < 0.02 NG/ML (< 0.10)
[2018-08-21 22:04] LABS: OSMOLALITY SERUM 289 MOSM/KG (275-295)
[2018-08-21 22:48] LABS: ESTIMATED AVERAGE GLUCOSE 237 MG/DL (60-110); HEMOGLOBIN A1c 9.9 %
[2018-08-21 22:52] LABS: BEDSIDE GLUCOSE 285 MG/DL (70-105)
[2018-08-25 14:11] LABS: BEDSIDE GLUCOSE 448 MG/DL (70-105)
== END 2018-08-21 23:19 | disposition home or self-care (01) ==
LOC: M ED 17:03
DX: E11.65 Type 2 diabetes mellitus with hyperglycemia (principal); R00.0 Tachycardia, unspecified; H53.8 Other visual disturbances; E78.5 Hyperlipidemia, unspecified; K21.9 Gastro-esophageal reflux disease without esophagitis; M54.9 Dorsalgia, unspecified; M79.7 Fibromyalgia; F41.9 Anxiety disorder, unspecified; F32.9 Major depressive disorder, single episode, unspecified; Z88.0 Allergy status to penicillin; Z88.8 Allergy status to other drugs, medicaments and biological substances; Z88.5 Allergy status to narcotic agent; Z79.899 Other long term (current) drug therapy; Z79.84 Long term (current) use of oral hypoglycemic drugs; Z79.52 Long term (current) use of systemic steroids
CPT/HCPCS: 82550

== ENCOUNTER → 2018-09-01 | Outpatient (REF) | payer MEDICARE ==
[2018-09-01 21:28] LABS: CHLAMYDIA DNA AMPLIFICATION NEGATIVE (NEGATIVE); GC DNA AMPLIFICATION NEGATIVE (NEGATIVE)
== END ==
LOC: M LAB REF 16:13
DX: N76.0 Acute vaginitis (principal)
CPT/HCPCS: 87086

== ENCOUNTER → 2018-09-14 | Outpatient (REF) | payer MEDICARE ==
[2018-09-14 17:55] LABS: APPEARANCE, URINE HAZY (CLEAR); BACTERIA, URINE AUTO 1+ (NEGATIVE); BILIRUBIN, URINE AUTO NEGATIVE (NEGATIVE); BLOOD, URINE BLOOD NEGATIVE (NEGATIVE); COLOR, URINE YELLOW (YELLOW); GLUCOSE, URINE (UA) AUTO 3+ mg/dL (NEGATIVE); KETONE, URINE AUTO NEGATIVE (NEGATIVE); LEUKOCYTE ESTERASE, URINE AUTO NEGATIVE (NEGATIVE); MUCUS, URINE SMALL (NEGATIVE); NITRITE, URINE AUTO NEGATIVE (NEGATIVE); PROTEIN, URINE AUTO NEGATIVE (NEGATIVE); RBC, URINE AUTO 1 /HPF (0-3); SPECIFIC GRAVITY URINE AUTO 1.016 (1.002-1.035); SQUAMOUS EPITHELIAL CELL UR AU 2 /HPF (0-6); UROBILINOGEN, URINE AUTO 0.2 mg/dL (0.0-2.0); WBC, URINE AUTO 2 /HPF (0-3)
== END ==
LOC: M LAB REF 16:16
DX: N39.0 Urinary tract infection, site not specified (principal)
CPT/HCPCS: 81001

== ENCOUNTER → 2018-11-10 | Outpatient (CLI) | payer MEDICARE ==
[~2018-11-10] MED LIST changes: +/BACL20TA; +/BACL20TA OR; +/DULO30CA; +/DULO30CA OR; +ACIDCAP; +ACIDCAP OR; +ALLE25CA; +ALLE25CA OR; +ATOR1TAB21; +ATOR1TAB21 PO; -BUPIVACAINE HCL 0.25% 10 ML VIAL As Ordered; -BUPIVACAINE HCL 0.25% 30 ML VIAL As Ordered; +BUSP5TA PO; +CALC500T49; +CALC500T49 OR; +CHAN1PAK9 PO; +CLEO300C2 PO; +CYCL10TA PO; +CYMB60CA3 PO; +DETR4CAP; +DETR4CAP OR; +DOXY100C37 PO; +EFFE75CA2 PO; +EXCEDRINE MIGRAINE; +EXCEDRINE OR; +FIBER TABS; +FIBER TABS OR; +FLEX10TA2 PO; +FLEXERIL OR; +GABA-843; +GLIP5TAB8 PO; +GLUC1000; +GLUC1000 OR; +IBUP200T2 PO; +LISI5TAB PO; +LODINE; +LODINE PO; +MAGICMW MT; +MELO15TA28; +METF10004 PO; +METF500T13; +MULTIVIT; +MULTIVIT OR; +Metamucil PO; +NAPR-50 PO; +NEUR400C; +NEUR400C OR; +NEUR600T PO; +OXYB5SYP PO; +OXYB5TAB5 OR; +PERC5TAB12 PO; +PRIL20CA; +PRIL20CA OR; +PROP10TAB OR; +PROP20TA2; +PROP60TA; +PROP60TA OR; +ROSU10TA PO; +SOMA350T OR; +TIZA2TAB3 PO; +TOPA25TA PO; +TOPI100T; +TOPI100T OR; +TOPI100T PO; +TOPI25TA2; +TRAM100T; +TRAM100T OR; +TRAM50TA2 OR; -TRIAMCINOLONE ACETONIDE SUSP 40 MG/ML VIAL (J3301) As Ordered; +TYLE325T5 PO; +VARE1TA; +VENL75CA47 PO; +VENL75TA2 OR; +VICO5TAB16 PO; +ZANA2CAP OR; +ZANA4CAP; +[UNRECOGNIZED DRUG - OTHER]
--- NOTE | 2018-11-28 02:41 | ECWPNPC ---
PATIENT NAME: MITCHELL AYALA : 1970 GENDER: FEMALE VISIT DATE: 11/10/2018 DISCHARGE DATE: 11/10/18 1007 VISIT LOCKED DATE TIME: PHYSICIAN: SEAN PARNELL RESOURCE: SEAN PARNELL DISCLAIMER : THIS IS A VISIT SUMMARY EXTRACTED FROM THE [facility] CHART. IT IS NOT A COPY OF THE [facility] PROGRESS [facility]. ROMIE
== END ==
LOC: M PAIN 08:45
PROVIDERS: ATTEND Nurse Practitioner Family
DX: M79.7 Fibromyalgia (principal); G89.29 Other chronic pain; G25.81 Restless legs syndrome; G62.9 Polyneuropathy, unspecified; E11.9 Type 2 diabetes mellitus without complications; F17.210 Nicotine dependence, cigarettes, uncomplicated; Z79.84 Long term (current) use of oral hypoglycemic drugs; Z79.899 Other long term (current) drug therapy; Z88.0 Allergy status to penicillin; Z88.5 Allergy status to narcotic agent; Z88.6 Allergy status to analgesic agent; Z88.8 Allergy status to other drugs, medicaments and biological substances

== ENCOUNTER → 2019-01-11 | Outpatient (CLI) | payer MEDICARE ==
--- NOTE | 2019-01-26 01:56 | ECWPNPC ---
PATIENT NAME: MITCHELL AYALA : 1970 GENDER: FEMALE VISIT DATE: 01/11/2019 DISCHARGE DATE: 01/11/19 1006 VISIT LOCKED DATE TIME: PHYSICIAN: SEAN PARNELL RESOURCE: SEAN PARNELL REASON FOR APPOINTMENT 1. GEN PAIN HISTORY OF PRESENT ILLNESS HISTORY OF PRESENT ILLNESS: HERE FOR F/U OF CHRONIC LOW BACK PAIN AND GENERALIZED PAIN.RATING PAIN VAS 10/10.DESCRIBES PAIN CONTINUOUS,STABBING AND ACHING.DOESNT FEEL MEDICATION IS HELPFUL AND DOESNT LIKE TO TAKE PILLS.DISCUSSED TREATMENT OPTIONS. PAIN THE PATIENT DESCRIBES THE PAIN... FALL RISK SCREENING: SCREENING : NO FALLS IN THE PAST YEAR. CURRENT MEDICATIONS TAKING PRILOSEC 20 MG CAPSULE DELAYED RELEASE 1 CAP ORALLY BID TAKING OXYBUTYNIN CHLORIDE ER 5 MG TABLET EXTENDED RELEASE 24 HOUR 1 TABLET ORALLY BID TAKING TYLENOL EXTRA STRENGTH 500 MG TABLET 2 TABLET NEEDED ORALLY EVERY 6 HRS TAKING METFORMIN HCL 1000 MG TABLET 1 TABLET WITH MEALS ORALLY TWICE A DAY TAKING EXCEDRIN MIGRAINE 250-250-65 MG TABLET 2 TABLETS NEEDED ORALLY EVERY 6 HRS TAKING BENADRYL ALLERGY 25 MG TABLET 1 TABLET NEEDED ORALLY EVERY 6 HRS TAKING ATORVASTATIN CALCIUM 10 MG TABLET 1 CAP ORALLY DAILY TAKING GLIPIZIDE 5 MG TABLET 1 TABLET ORALLY ONCE A DAY TAKING DULOXETINE HCL 60 MG CAPSULE DELAYED RELEASE PARTICLES 1 CAPSULE ORALLY DAILY TAKING HYDROCODONE-ACETAMINOPHEN 5-325 MG TABLET 1 TABLET NEEDED ORALLY EVERY 6 HRS PRN PAIN MDD=2 DISCONTINUED MIRAPEX 0.5 MG TABLET 1 TABLET BEFORE BEDTIME ORALLY BID DISCONTINUED CHANTIX 1 TAB ORAL BID DISCONTINUED PREDNISONE 10 MG TABLET 1 TABLET ORALLY TAKE 4 TAB X 3 DAY, 3 TAB X 3 DAY, 2 TAB X 3 DAY 1 TAB X 3 DAY DISCONTINUED CLARITIN 10 MG TABLET 1 TABLET ORALLY ONCE A DAY DISCONTINUED GABAPENTIN 300 MG CAPSULE 1 CAPSULE ORALLY THREE TIMES A DAY, NOTES: ITCH /RASH MEDICATION LIST REVIEWED AND RECONCILED WITH THE PATIENT PAST MEDICAL HISTORY GERD BACK AND NECK PAIN FIBROMYALGIA DIABETIC HYPERLIPIDEMIA TENDONITIS ? LUPUS DEPRESSION/ANXIETY RESTLESS LEG SYNDROME NEUROPATHY ACUTE RIGHT HIP PAIN ALLERGIES PENICILLIN (FOR ALLERGIES USE ONLY): ANAPHYLAXIS - ALLERGY MOTRIN: NAUSEA/VOMITING - SIDE EFFECTS CODEINE PHOSPHATE (FOR ALLERGIES USE ONLY): NAUSEA/VOMITING - SIDE EFFECTS MORPHINE SULFATE: NAUSEA/VOMITING - SIDE EFFECTS MILNACIPRAN HCL: NAUSEA/VOMITING - SIDE EFFECTS SAVELLA: FLUSHING - SIDE EFFECTS GABAPENTIN: RASH - ALLERGY OXYCODONE: ITCHING - ALLERGY LORATADINE: ITCHNG/RASH - ALLERGY SURGICAL HISTORY LEFT WRIST WITH BLADDER REPAIR ALL MAXILLARY TEETH PULLED 2018 FAMILY HISTORY FATHER: ALIVE MOTHER: , CERVICAL CANCER, DIAGNOSED WITH CANCER 1 BROTHER(S) . 3 SON(S) - HEALTHY. SOCIAL HISTORY GENERAL: TOBACCO USE ARE YOU A:CURRENT SMOKER ARE YOU INTERESTED IN QUITTING?READY TO QUIT ON CHANTIX INTERMITTENT DEPENDING ON $ PREVIOUS QUIT ATTEMPTS?YES, MORE THAN 6 MONTHS AGO. COUNSELED THE PATIENT ON TOBACCO USE, CESSATION [id number]/11/2019 ASSIST (PHARMACOTHERAPY AND COUNSELING)DISCUSSED PATIENT CONCERNS RELATED TO QUITTING. HOW MANY CIGARETTES A DAY DO YOU SMOKE?21-30 PATIENT COUNSELED ON THE DANGERS OF TOBACCO USE AND URGED TO QUIT:11/10/2018 LATEX QUESTIONNAIRE LATEX ALLERGY : HAVE YOU EVER DEVELOPED ANY TYPE OF REACTION AFTER HANDLING LATEX PRODUCTS SUCH RUBBER GLOVES, CONDOMS, DIAPHRAGMS, BALLOONS, SOCKS, OR UNDERWEAR?NO LATEX ALLERGY : HAVE YOU EVER DEVELOPED ANY TYPE OF REACTION DURING OR AFTER DENTAL APPOINTMENT, VAGINAL/RECTAL EXAMINATION, SURGICAL PROCEDURE, OR ANY OTHER EXPOSURE?NO LATEX RISK : HAVE YOU EVER HAD ANY DIFFICULTY BREATHING OR HIVES AFTER EATING OR HANDLING ANY FRUITS, OR VEGETABLES; SUCH KIWI, BANANAS, STONE FRUITS, OR CHESTNUTSNO LATEX RISK : DO YOU HAVE A PREVIOUS PERSONAL HISTORY OF MORE THAN NINE SURGERIES, SPINA BIFIDA, OR REPEATED CATHERTIZATIONS? NO LATEX RISK : ARE YOU FREQUENTLY EXPOSED TO LATEX PRODUCTS IN YOUR OCCUPATION?NO DATE ASKED : 01/11/2019 ALCOHOL SCREENING DID YOU HAVE A DRINK CONTAINING ALCOHOL IN THE PAST YEAR?NO POINTS0 INTERPRETATIONNEGATIVE RECREATIONAL DRUG USE DRUG USE?NO BUDDHISM [id number] RESTORATION LANGUAGE LANGUAGES SPOKEN:IRISH EDUCATION LEVEL OF EDUCATION:NOT FINISHED COLLEGE LEARNING BARRIERS / SPECIAL NEEDS BARRIERS TO LEARNING?NO HEARING IMPAIRED?NO VISION IMPAIRED?NO COGNITIVELY IMPAIRED?NO READINESS TO LEARN?YES LEARNING PREFERENCES?YES :BOOKLETS, HANDOUTS LEARNING CAPABILITIES PRESENT?YES EMOTIONAL BARRIERS?NO SPECIAL DEVICES?YES :CANE OCCASSIOANALLY AMPOULE FILLER NEEDED?NO DOMESTIC VIOLENCE DO YOU FEEL SAFE IN YOUR ENVIRONMENT?YES NEW PATIENT PAIN DIARY FROM 0-10, WHAT LEVEL IS YOUR PAIN TODAY?10 PAIN CLINIC PFS, CLERGY, PUBLIC HEALTH REFERRALS PFS REFERRAL NEEDED?NO CLERGY REFERRAL NEEDED?NO PUBLIC HEALTH REFERRAL NEEDED?NO WAS THE PROVIDER NOTIFIED OF ANY PERTINENT INFO? N/A HAS THE PATIENT BEEN EDUCATED REGARDING HIS/HER PLAN OF CARE?YES HAS THE PATIENT BEEN EDUCATED REGARDING PAIN, THE RISK FOR PAIN, THE IMPORTANCE OF EFFECTIVE PAIN MANAGEMENT, AND THE PAIN ASSESSMENT PROCESS?YES ADVANCE DIRECTIVE ADVANCE DIRECTIVE DISCUSSED WITH PATIENT:YES 01/11/19 PT DOES NOT HAVE ANY ADVANCED DIRECTIVES AND SHE DECLINES INFOMATION ON HCP AT THIS TIME. AD REVIEWED WITH PT 08/10/18 0928 LAS01/11/19 REVIEWED WITH PT. AD. HOSPITALIZATION/MAJOR DIAGNOSTIC PROCEDURE RELATED TO CHILDBIRTH AND SUGERY REVIEW OF SYSTEMS REVIEWED BY: PROVIDER: SEAN TOLBERT . CONSTITUTIONAL: ANY CHANGE IN YOUR MEDICAL CONDITION? NO . CHILLS NO . FEVER NO . INFECTION: DO YOU HAVE NEW INFECTIONS? NO . DO YOU HAVE HISTORY OF MRSA? NO . MUSCULOSKELETAL: ANY NEW PATTERNS OF PAIN OR NUMBNESS? NO . GASTROENTEROLOGY: ANY NEW CHANGE IN BOWEL CONTROL? NO . GENITOURINARY: ANY NEW CHANGE IN BLADDER CONTROL? NO . IS THERE A CHANCE YOU COULD BE ? NO . HEMATOLOGY/LYMPH: DO YOU TAKE ANY BLOOD THINNERS? (FOR EXAMPLE- COUMADIN, PLAVIX, AGGRENOX, PLATEL, PRADAXA, OR XARELTO) NO . WHEN WAS YOUR LAST DOSE? DATE: TIME: . NEUROLOGY: HAVE YOU FALLEN IN THE PAST 12 MONTHS? NO . ANY NEW EXTREMITY NUMBNESS OR WEAKNESS? NO . CARDIOLOGY: DO YOU HAVE A PACEMAKER OR DEFIBRILLATOR? NO . RESPIRATORY: HAVE YOU BEEN SICK IN THE PAST WEEK? NO . FEVER NO . FLU LIKE SYMPTOMS? NO . COUGH NO . INTEGUMENTARY: DO YOU HAVE ANY RASHES OR OPEN SORES? NO . ALLERGIC/IMMUNO: ARE YOU ALLERGIC TO IV DYE? NO . ANY NEW ALLERGIES? NO . PSYCHIATRIC: DO YOU HAVE THOUGHTS OF HURTING YOURSELF OR SOMEONE ELSE? NO . ARE YOU ABUSED, NEGLECTED, OR IN AN UNSAFE ENVIRONMENT? NO . ENDOCRINOLOGY: ARE YOU DIABETIC? YES . OTHER: DO YOU NEED ANY PRESCRIPTIONS? NO . IF YES, PLEASE LIST: ____ . ANY NEW PROBLEMS WITH YOUR MEDICATIONS? NO . WHEN DID YOU LAST EAT? ____ . WHEN DID YOU LAST DRINK? ____ . WHAT DID YOU LAST DRINK? ____ . NAME OF PERSON DRIVING YOU HOME? ____ . DO YOU HAVE ANY OTHER QUESTIONS OR CONCERNS NO STATES SHE CAN'T AFFORD THE HYDROCODONE AND IT REALLY ISN'T THAT EFFECTIVE . VITAL SIGNS WT 214.4 LBS, HT 67 IN, BMI 33.58 INDEX, BP 140/69 MM HG, HR 111 /MIN, RR 16 /MIN, TEMP 97.2 F, OXYGEN SAT % 97%, SAFE IN ENV? (Y/N) Y, NA INITIALS AW 0904, REVIEWED BY: OSMAR. EXAMINATION GENERAL EXAMINATION: GENERAL APPEARANCE: AWAKE,ALERT ,PLEAASANT . PSYCH AFFECT NORMAL . LUNGS: LUNG TIJERINA ARE CLEAR TO AUSCULTATION BILATERALLY. GOOD MOVEMENT OF AIR . HEART: S1, S2 IN A REGULAR RATE AND RHYTHM. NO SIGNIFICANT MURMURS, RUBS OR GALLOPS NOTED . LUMBAR SACRAL SPINEPALPATION:TENDER OVER BILAT. L4/5-L5/S1 LUMBAR FACETS WITH FACET LOADING.. ASSESSMENTS LUMBOSACRAL SPONDYLOLYSIS - M43.07 (PRIMARY) TREATMENT LUMBOSACRAL SPONDYLOLYSIS NOTES: BILAT DX L4/5-L5/S1 LFB. PROCEDURE CODES FA211 ESTABILISHED PATIENT [facility] CHARGE DISPOSITION & COMMUNICATION FOLLOW UP POST (REASON: BILAT DX L4/5-L5/S1 LFB) ELECTRONICALLY SIGNED BY TOMASZ KOO ON 01/25/2019 AT 04:24 PM EDT DISCLAIMER : THIS IS A VISIT SUMMARY EXTRACTED FROM THE [employer] CHART. IT IS NOT A COPY OF THE [employer] PROGRESS NOTE. ROMIE
== END ==
LOC: M PAIN 08:45
PROVIDERS: ATTEND Nurse Practitioner Family
DX: M43.07 Spondylolysis, lumbosacral region (principal); K21.9 Gastro-esophageal reflux disease without esophagitis; M79.7 Fibromyalgia; E11.40 Type 2 diabetes mellitus with diabetic neuropathy, unspecified; E78.5 Hyperlipidemia, unspecified; F41.9 Anxiety disorder, unspecified; F32.9 Major depressive disorder, single episode, unspecified; G25.81 Restless legs syndrome; F17.210 Nicotine dependence, cigarettes, uncomplicated; M25.551 Pain in right hip; Z79.84 Long term (current) use of oral hypoglycemic drugs; Z79.891 Long term (current) use of opiate analgesic; Z79.899 Other long term (current) drug therapy; Z88.0 Allergy status to penicillin; Z88.5 Allergy status to narcotic agent; Z88.6 Allergy status to analgesic agent

== ENCOUNTER → 2019-02-01 | Outpatient (CLI) | payer MEDICARE ==
[~2019-02-01] MED LIST changes: -/BACL20TA; -/BACL20TA OR; -/DULO30CA; -/DULO30CA OR; +BACL1TAB9; +BACL1TAB9 OR; +BUPIVACAINE HCL 0.25% 30 ML VIAL As Ordered ONE; +CRES10TA32 PO; +CYMB1CAP5; +CYMB1CAP5 OR; +ISOVUE-M 300 61% 15ML VIAL (Q9967) As Ordered ONE; +LIDOCAINE 1% SDV INJ 30 ML VIAL As Ordered ONE; -NAPR-50 PO; +NAPR-837 PO; -ROSU10TA PO; +TRIAMCINOLONE ACETONIDE SUSP 40 MG/ML VIAL (J3301) As Ordered ONE; -VICO5TAB16 PO; +VICO5TAB17 PO
--- NOTE | 2019-02-01 12:57 | REP ---
Partial lumbar spine series: Three views . History: Injection procedure for pain. 17 seconds of fluoroscopy time is reported. Findings: A sequence of three fluoroscopically obtained last image hold procedural spot radiographs of the lumbar spine and right iliac crest document needle position and contrast injection associated with injection procedure. Electronically Signed by Ken Neumann MD 02/01/2019 12:49 P
--- NOTE | 2019-02-19 00:17 | ECWPNPC ---
PATIENT NAME: MITCHELL AYALA : 1970 GENDER: FEMALE VISIT DATE: 02/01/2019 DISCHARGE DATE: 02/01/19 0000 VISIT LOCKED DATE TIME: PHYSICIAN: HEIDI MCCRACKEN MD RESOURCE: HEIDI MCCRACKEN MD REASON FOR APPOINTMENT 1. ILIOLUMBAR LIGAMENT INJECTION HISTORY OF PRESENT ILLNESS HISTORY OF PRESENT ILLNESS: PAIN THE PATIENT DESCRIBES THE PAIN... 48 YEAR OLD FEMALE PATIENT WITH A HISTORY OF CHRONIC LOW BACK PAIN. THE PATIENT DESCRIBES THE PAIN BURNING, TENDER, SHARP, STABBING, AND CONTINUOUS WITH A PAIN SCORE OF 6-10/10 DEPENDING ON PHYSICAL ACTIVITY. THE PATIENT SAYS THAT HER PAIN IS MAINLY ON THE RIGHT SIDE OF HER LOW BACK AREA. PATIENT DENIES UNEXPLAINABLE WEIGHT LOSS, FEVER, CHILLS, NEW CHANGES ON HER URINARY OR BOWEL CONTROL. FALL RISK SCREENING: SCREENING :NO FALLS REPORTED IN THE LAST YEAR CURRENT MEDICATIONS TAKING PRILOSEC 20 MG CAPSULE DELAYED RELEASE 1 CAP ORALLY BID, NOTES: 01/31/19 TAKING OXYBUTYNIN CHLORIDE ER 5 MG TABLET EXTENDED RELEASE 24 HOUR 1 TABLET ORALLY BID, NOTES: 01/31/19 TAKING TYLENOL EXTRA STRENGTH 500 MG TABLET 2 TABLET NEEDED ORALLY EVERY 6 HRS, NOTES: 01/31/19 TAKING METFORMIN HCL 1000 MG TABLET 1 TABLET WITH MEALS ORALLY TWICE A DAY, NOTES: 01/31/19 TAKING EXCEDRIN MIGRAINE 250-250-65 MG TABLET 2 TABLETS NEEDED ORALLY EVERY 6 HRS, NOTES: NONE LATELY TAKING BENADRYL ALLERGY 25 MG TABLET 1 TABLET NEEDED ORALLY EVERY 6 HRS, NOTES: NONE LATELY TAKING ATORVASTATIN CALCIUM 10 MG TABLET 1 CAP ORALLY DAILY, NOTES: NONE LATELY TAKING GLIPIZIDE 5 MG TABLET 1 TABLET ORALLY ONCE A DAY, NOTES: 01/31/19 TAKING DULOXETINE HCL 60 MG CAPSULE DELAYED RELEASE PARTICLES 1 CAPSULE ORALLY DAILY, NOTES: NONE LATELY DISCONTINUED HYDROCODONE-ACETAMINOPHEN 5-325 MG TABLET 1 TABLET NEEDED ORALLY EVERY 6 HRS PRN PAIN MDD=2 MEDICATION LIST REVIEWED AND RECONCILED WITH THE PATIENT PAST MEDICAL HISTORY GERD BACK AND NECK PAIN FIBROMYALGIA DIABETIC HYPERLIPIDEMIA TENDONITIS ? LUPUS DEPRESSION/ANXIETY RESTLESS LEG SYNDROME NEUROPATHY ACUTE RIGHT HIP PAIN ALLERGIES PENICILLIN (FOR ALLERGIES USE ONLY): ANAPHYLAXIS - ALLERGY MOTRIN: NAUSEA/VOMITING - SIDE EFFECTS CODEINE PHOSPHATE (FOR ALLERGIES USE ONLY): NAUSEA/VOMITING - SIDE EFFECTS MORPHINE SULFATE: NAUSEA/VOMITING - SIDE EFFECTS MILNACIPRAN HCL: NAUSEA/VOMITING - SIDE EFFECTS SAVELLA: FLUSHING - SIDE EFFECTS GABAPENTIN: RASH - ALLERGY OXYCODONE: ITCHING - ALLERGY LORATADINE: ITCHNG/RASH - ALLERGY SURGICAL HISTORY LEFT WRIST WITH BLADDER REPAIR ALL MAXILLARY TEETH PULLED 2018 FAMILY HISTORY FATHER: ALIVE MOTHER: , CERVICAL CANCER, DIAGNOSED WITH CANCER 1 BROTHER(S) . 3 SON(S) - HEALTHY. SOCIAL HISTORY GENERAL: TOBACCO USE ARE YOU A:CURRENT SMOKER ARE YOU INTERESTED IN QUITTING?READY TO QUIT ON CHANTIX INTERMITTENT DEPENDING ON $ PREVIOUS QUIT ATTEMPTS?YES, MORE THAN 6 MONTHS AGO. COUNSELED THE PATIENT ON TOBACCO USE, CESSATION [id number]/04/2019 ASSIST (PHARMACOTHERAPY AND COUNSELING)DISCUSSED PATIENT CONCERNS RELATED TO QUITTING. HOW MANY CIGARETTES A DAY DO YOU SMOKE? PATIENT COUNSELED ON THE DANGERS OF TOBACCO USE AND URGED TO QUIT:11/10/2018 LATEX QUESTIONNAIRE LATEX ALLERGY : HAVE YOU EVER DEVELOPED ANY TYPE OF REACTION AFTER HANDLING LATEX PRODUCTS SUCH RUBBER GLOVES, CONDOMS, DIAPHRAGMS, BALLOONS, SOCKS, OR UNDERWEAR?NO LATEX ALLERGY : HAVE YOU EVER DEVELOPED ANY TYPE OF REACTION DURING OR AFTER DENTAL APPOINTMENT, VAGINAL/RECTAL EXAMINATION, SURGICAL PROCEDURE, OR ANY OTHER EXPOSURE?NO DATE ASKED : 01/11/2019 LATEX RISK : HAVE YOU EVER HAD ANY DIFFICULTY BREATHING OR HIVES AFTER EATING OR HANDLING ANY FRUITS, OR VEGETABLES; SUCH KIWI, BANANAS, STONE FRUITS, OR CHESTNUTSNO LATEX RISK : DO YOU HAVE A PREVIOUS PERSONAL HISTORY OF MORE THAN NINE SURGERIES, SPINA BIFIDA, OR REPEATED CATHERTIZATIONS? NO LATEX RISK : ARE YOU FREQUENTLY EXPOSED TO LATEX PRODUCTS IN YOUR OCCUPATION?NO ALCOHOL SCREENING DID YOU HAVE A DRINK CONTAINING ALCOHOL IN THE PAST YEAR?NO POINTS0 INTERPRETATIONNEGATIVE RECREATIONAL DRUG USE DRUG USE?NO EVANGELICAL [id number] BAPTISM LANGUAGE LANGUAGES SPOKEN:ICELANDIC EDUCATION LEVEL OF EDUCATION:NOT FINISHED COLLEGE LEARNING BARRIERS / SPECIAL NEEDS BARRIERS TO LEARNING?NO HEARING IMPAIRED?NO VISION IMPAIRED?NO COGNITIVELY IMPAIRED?NO READINESS TO LEARN?YES LEARNING PREFERENCES?YES :BOOKLETS, HANDOUTS LEARNING CAPABILITIES PRESENT?YES EMOTIONAL BARRIERS?NO SPECIAL DEVICES?YES :CANE OCCASSIOANALLY DIRECTOR UTILIZATION MANAGEMENT NEEDED?NO DOMESTIC VIOLENCE DO YOU FEEL SAFE IN YOUR ENVIRONMENT?YES NEW PATIENT PAIN DIARY FROM 0-10, WHAT LEVEL IS YOUR PAIN TODAY?10 PAIN CLINIC PFS, CLERGY, PUBLIC HEALTH REFERRALS PFS REFERRAL NEEDED?NO CLERGY REFERRAL NEEDED?NO PUBLIC HEALTH REFERRAL NEEDED?NO WAS THE PROVIDER NOTIFIED OF ANY PERTINENT INFO? N/A HAS THE PATIENT BEEN EDUCATED REGARDING HIS/HER PLAN OF CARE?YES HAS THE PATIENT BEEN EDUCATED REGARDING PAIN, THE RISK FOR PAIN, THE IMPORTANCE OF EFFECTIVE PAIN MANAGEMENT, AND THE PAIN ASSESSMENT PROCESS?YES ADVANCE DIRECTIVE ADVANCE DIRECTIVE DISCUSSED WITH PATIENT:YES PT DOES NOT HAVE ANY ADVANCED DIRECTIVES AND SHE DECLINES INFOMATION ON HCP AT THIS TIME. REVIEWED WITH PT 08/10/18 0928 LAS01/11/19 REVIEWED WITH PT. ADREVIEWED WITH PATIENT 02/01/19 1041 JS. HOSPITALIZATION/MAJOR DIAGNOSTIC PROCEDURE RELATED TO CHILDBIRTH AND SUGERY REVIEW OF SYSTEMS REVIEWED BY: PROVIDER: HEIDI MCCRACKEN MD . CONSTITUTIONAL: ANY CHANGE IN YOUR MEDICAL CONDITION? NO . CHILLS NO . FEVER NO . INFECTION: DO YOU HAVE NEW INFECTIONS? NO . DO YOU HAVE HISTORY OF MRSA? NO . MUSCULOSKELETAL: ANY NEW PATTERNS OF PAIN OR NUMBNESS? NO . GASTROENTEROLOGY: ANY NEW CHANGE IN BOWEL CONTROL? NO . GENITOURINARY: ANY NEW CHANGE IN BLADDER CONTROL? NO . IS THERE A CHANCE YOU COULD BE ? NO . HEMATOLOGY/LYMPH: DO YOU TAKE ANY BLOOD THINNERS? (FOR EXAMPLE- COUMADIN, PLAVIX, AGGRENOX, PLATEL, PRADAXA, OR XARELTO) NO . WHEN WAS YOUR LAST DOSE? DATE: TIME: . NEUROLOGY: HAVE YOU FALLEN IN THE PAST 12 MONTHS? NO . ANY NEW EXTREMITY NUMBNESS OR WEAKNESS? NO . CARDIOLOGY: DO YOU HAVE A PACEMAKER OR DEFIBRILLATOR? NO . RESPIRATORY: HAVE YOU BEEN SICK IN THE PAST WEEK? NO . FEVER NO . FLU LIKE SYMPTOMS? NO . COUGH NO . INTEGUMENTARY: DO YOU HAVE ANY RASHES OR OPEN SORES? NO . ALLERGIC/IMMUNO: ARE YOU ALLERGIC TO IV DYE? NO . ANY NEW ALLERGIES? NO . PSYCHIATRIC: DO YOU HAVE THOUGHTS OF HURTING YOURSELF OR SOMEONE ELSE? NO . ARE YOU ABUSED, NEGLECTED, OR IN AN UNSAFE ENVIRONMENT? NO . ENDOCRINOLOGY: ARE YOU DIABETIC? YES, FSBS 191 @ 0745 . OTHER: DO YOU NEED ANY PRESCRIPTIONS? NO . IF YES, PLEASE LIST: ____ . ANY NEW PROBLEMS WITH YOUR MEDICATIONS? NO . WHEN DID YOU LAST EAT? 01/31/19 2100 . WHEN DID YOU LAST DRINK? 02/01/19 0645 . WHAT DID YOU LAST DRINK? WATER . NAME OF PERSON DRIVING YOU HOME? MINDY . DO YOU HAVE ANY OTHER QUESTIONS OR CONCERNS NO . VITAL SIGNS WT 209.4 LBS, HT 67 IN, BMI 32.79 INDEX, BP 136/75 MM HG, HR 65 /MIN, RR 16 /MIN, TEMP 97.8 F, OXYGEN SAT % 97, BLOOD GLUCOSE LEVEL 191 THIS AM PER PATIENT, SAFE IN ENV? (Y/N) YES, NA INITIALS CM 0857, REVIEWED BY: VICENTE. EXAMINATION GENERAL EXAMINATION: PATIENT IS ALERT O X 3 AND COOPERATIVE. TENDERNESS OVER THE RIGHT ILIOLUMBAR LIGAMENT. ASSESSMENTS INFLAMMATION OF LIGAMENT - M24.20 (PRIMARY) RIGHT ILIOLUMBAR LIGAMENT INFLAMMATION. TREATMENT OTHERS CLINICAL NOTES: WE DISCUSSED SEVERAL ISSUES WITH MRS. AYALA'S PAIN MANAGEMENT CASE. DUE TO THE INFLAMMATION OF THE RIGHT ILIOLUMBAR LIGAMENT, I WOULD LIKE TO MOVE FORWARD WITH A RIGHT ILIOLUMBAR LIGAMENT INJECTION TODAY. WE DISCUSSED THE BENEFITS, RISKS, AND ALTERNATIVES OF THE INJECTION AND THE PATIENT WOULD LIKE TO PROCEED. THE PATIENT WILL FOLLOW UP IN 3 WEEKS. INSTRUCTIONS WERE GIVEN, QUESTIONS WERE ANSWERED, PATIENT REPORTS UNDERSTANDING AND AGREES WITH THE PLAN. I, TIMOTHY HERMOSILLO, DOCUMENTED THE ABOVE INFORMATION ACTING A SCRIBE FOR DR. MCCRACKEN. I HAVE REVIEWED THE ABOVE DOCUMENT, WRITTEN BY TIMOTHY DOMINGUEZ AND I VERIFY THAT IT IS ACCURATE. . PROCEDURES PRE-PROCEDURE DIAGNOSIS: RIGHT ILIO-LUMBAR LIGAMENT INFLAMMATIONPOST-PROCEDURE DIAGNOSIS: RIGHT ILIO-LUMBAR LIGAMENT INFLAMMATIONPROCEDURE: RIGHT ILIO-LUMBAR LIGAMENT BLOCK SURGEON: LONA RAYMONDTHESIA: LOCAL COMPLICATIONS: NONEPRE-PROCEDURE NOTE:THE PATIENT IS SUFFERING OF BACK PAIN. I REVIEWED THE CHART AND DISCUSSED THE CASE WITH THE PATIENT. DUE TO THE PAIN LOCATION AND SYMPTOMS I WOULD LIKE TO PROCEED WITH A RIGHT ILIOLUMBAR LIGAMENT INJECTION. I DISCUSSED ALTERNATIVES AND THE PATIENT EXPRESSED THAT SHE WOULD LIKE TO MOVE FORWARD. THE PATIENT DENIES UNEXPLAINABLE, WEIGHT LOSS, FEVER, CHILLS, OR CHANGES IN URINARY OR BOWEL CONTROL. PROCEDURE NOTE:AFTER REVIEW THE CASE WITH THE PATIENT SHE WAS BROUGHT TO THE PROCEDURE ROOM AND PLACED IN THE PRONE POSITION. THE TARGET AREA WAS CLEANED WITH CHLORAPREP SOLUTION AND DRAPED ASEPTICALLY. TARGET WAS SELECTED AT THE SUPERIOR BORDER OF THE RIGHT ILIAC CREST. LIDOCAINE 1% WAS USED LOCAL ANESTHETIC. SPINAL NEEDLE 22 GAUGE WAS ADVANCED UNDER FLUOROSCOPIC GUIDANCE UNTIL THE TARGET WAS REACHED. ISOVUE M DYE 30% 0.25 CC WAS INJECTED SHOWING ADEQUATE SPREAD OF THE DYE. THEN A SOLUTION OF 20 CC OF BUPIVACAINE 0.125% AND KENALOG 20 MG WAS INJECTED AT EACH SIDE.THE PATIENT TOLERATES THE PROCEDURE WITHOUT COMPLICATIONS AND WAS SENT TO THE RECOVERY ROOM. FLUROSCOPY TIME WAS 17 SECONDS.POST-PROCEDURE NOTE:I WILL SEE THE PATIENT IN A FOLLOW UP IN THE NEXT FEW WEEKS. WE ARE LOOKING FOR LONG LASTING PAIN RELIEVE WITH THIS INTERVENTION. INSTRUCTIONS WERE GIVEN QUESTIONS WERE ANSWERED AND THE PATIENT REPORTS UNDERSTANDING AND AGREES. I, TIMOTHY HERMOSILLO, DOCUMENTED THE ABOVE INFORMATION ACTING A SCRIBE FOR DR. MCCRACKEN. I HAVE REVIEWED THE ABOVE DOCUMENT, WRITTEN BY TIMOTHY HERMOSILLO SCRIBDayday AND I VERIFY THAT IT IS ACCURATE. DIAGNOSTIC IMAGING [facility] FACET BLOCK (PAIN)[id number] PROCEDURE CODES 65306 INJ TENDON SHEATH/LIGAMENT, MODIFIERS: RT 6045F RADXPS IN END [id number] PXD [id number] NEEDLE LOCALIZATION BY XRSENA, MODIFIERS: 26 DISPOSITION & COMMUNICATION FOLLOW UP 3 WEEKS ELECTRONICALLY SIGNED BY HEIDI MCCRACKEN MD, MD ON 02/18/2019 AT 03:24 PM EDT DISCLAIMER : THIS IS A VISIT SUMMARY EXTRACTED FROM THE [employer] CHART. IT IS NOT A COPY OF THE [employer] PROGRESS NOTE. MTDD
== END ==
LOC: M PAIN 08:45
PROVIDERS: ATTEND Anesthesiology
DX: G89.29 Other chronic pain (principal); M24.20 Disorder of ligament, unspecified site; M77.8 Other enthesopathies, not elsewhere classified; E11.9 Type 2 diabetes mellitus without complications; E78.5 Hyperlipidemia, unspecified; K21.9 Gastro-esophageal reflux disease without esophagitis; M79.7 Fibromyalgia; F41.9 Anxiety disorder, unspecified; F32.9 Major depressive disorder, single episode, unspecified; G25.81 Restless legs syndrome; G62.9 Polyneuropathy, unspecified; F17.210 Nicotine dependence, cigarettes, uncomplicated; Z79.84 Long term (current) use of oral hypoglycemic drugs; Z79.899 Other long term (current) drug therapy; Z88.0 Allergy status to penicillin; Z88.5 Allergy status to narcotic agent; Z88.6 Allergy status to analgesic agent; Z88.8 Allergy status to other drugs, medicaments and biological substances
CPT/HCPCS: 20550; 77002; J3301; Q9967

== ENCOUNTER → 2019-02-26 | Outpatient (CLI) | payer MEDICARE ==
[~2019-02-26] MED LIST changes: -BUPIVACAINE HCL 0.25% 30 ML VIAL As Ordered ONE; -ISOVUE-M 300 61% 15ML VIAL (Q9967) As Ordered ONE; -LIDOCAINE 1% SDV INJ 30 ML VIAL As Ordered ONE; -TRIAMCINOLONE ACETONIDE SUSP 40 MG/ML VIAL (J3301) As Ordered ONE
--- NOTE | 2019-03-14 01:34 | ECWPNPC ---
PATIENT NAME: MITCHELL AYALA : 1970 GENDER: FEMALE VISIT DATE: 02/26/2019 DISCHARGE DATE: 02/26/19919 VISIT LOCKED DATE TIME: PHYSICIAN: SEAN PARNELL RESOURCE: SEAN PARNELL REASON FOR APPOINTMENT 1. POST FB HISTORY OF PRESENT ILLNESS HISTORY OF PRESENT ILLNESS: HERE FOR POST PROCEDURE F/U.HAD RIGHT ILIOINGUINAL LIGAMENT BLOCK 02/01/19.REPORTING SIGNIFICANT REDUCTION IN PAIN THAT CONTINUES TODAY.COMPLAINING OF MUSCLE SPASM PAIN IN ARMS.DISCUSSED TREATMENT OPTIONS.RATING PAIN VAS 8/10. PAIN THE PATIENT DESCRIBES THE PAIN... FALL RISK SCREENING: SCREENING :NO FALLS REPORTED IN THE LAST YEAR CURRENT MEDICATIONS TAKING PRILOSEC 20 MG CAPSULE DELAYED RELEASE 1 CAP ORALLY BID TAKING OXYBUTYNIN CHLORIDE ER 5 MG TABLET EXTENDED RELEASE 24 HOUR 1 TABLET ORALLY BID TAKING TYLENOL EXTRA STRENGTH 500 MG TABLET 2 TABLET NEEDED ORALLY EVERY 6 HRS TAKING METFORMIN HCL 1000 MG TABLET 1 TABLET WITH MEALS ORALLY TWICE A DAY TAKING EXCEDRIN MIGRAINE 250-250-65 MG TABLET 2 TABLETS NEEDED ORALLY EVERY 6 HRS TAKING BENADRYL ALLERGY 25 MG TABLET 1 TABLET NEEDED ORALLY EVERY 6 HRS TAKING ATORVASTATIN CALCIUM 10 MG TABLET 1 CAP ORALLY DAILY TAKING GLIPIZIDE 5 MG TABLET 1 TABLET ORALLY ONCE A DAY TAKING DULOXETINE HCL 60 MG CAPSULE DELAYED RELEASE PARTICLES 1 CAPSULE ORALLY DAILY MEDICATION LIST REVIEWED AND RECONCILED WITH THE PATIENT PAST MEDICAL HISTORY GERD BACK AND NECK PAIN FIBROMYALGIA DIABETIC HYPERLIPIDEMIA TENDONITIS ? LUPUS DEPRESSION/ANXIETY RESTLESS LEG SYNDROME NEUROPATHY ACUTE RIGHT HIP PAIN ALLERGIES PENICILLIN (FOR ALLERGIES USE ONLY): ANAPHYLAXIS - ALLERGY MOTRIN: NAUSEA/VOMITING - SIDE EFFECTS CODEINE PHOSPHATE (FOR ALLERGIES USE ONLY): NAUSEA/VOMITING - SIDE EFFECTS MORPHINE SULFATE: NAUSEA/VOMITING - SIDE EFFECTS MILNACIPRAN HCL: NAUSEA/VOMITING - SIDE EFFECTS SAVELLA: FLUSHING - SIDE EFFECTS GABAPENTIN: RASH - ALLERGY OXYCODONE: ITCHING - ALLERGY LORATADINE: ITCHNG/RASH - ALLERGY SURGICAL HISTORY LEFT WRIST WITH BLADDER REPAIR ALL MAXILLARY TEETH PULLED 2017 FAMILY HISTORY FATHER: ALIVE, DOESN'T KNOW HIS HISTORY MOTHER: , CERVICAL CANCER, DIAGNOSED WITH CANCER 1 BROTHER(S) . 3 SON(S) - HEALTHY. SOCIAL HISTORY GENERAL: TOBACCO USE ARE YOU A:CURRENT SMOKER ARE YOU INTERESTED IN QUITTING?THINKING ABOUT QUITTING CHANTIX IS TOO EXPENSIVE PREVIOUS QUIT ATTEMPTS?YES, WITHIN THE LAST 6 MONTHS. COUNSELED THE PATIENT ON SMOKING CESSATION, EDUCATION [id number]/29/2019 HOW MANY CIGARETTES A DAY DO YOU SMOKE?21-30 PATIENT COUNSELED ON THE DANGERS OF TOBACCO USE AND URGED TO QUIT:02/26/2019 PAIN CLINIC PFS, CLERGY, PUBLIC HEALTH REFERRALS PFS REFERRAL NEEDED?NO CLERGY REFERRAL NEEDED?NO PUBLIC HEALTH REFERRAL NEEDED?NO WAS THE PROVIDER NOTIFIED OF ANY PERTINENT INFO? N/A HAS THE PATIENT BEEN EDUCATED REGARDING HIS/HER PLAN OF CARE?YES HAS THE PATIENT BEEN EDUCATED REGARDING PAIN, THE RISK FOR PAIN, THE IMPORTANCE OF EFFECTIVE PAIN MANAGEMENT, AND THE PAIN ASSESSMENT PROCESS?YES LATEX QUESTIONNAIRE LATEX ALLERGY : HAVE YOU EVER DEVELOPED ANY TYPE OF REACTION AFTER HANDLING LATEX PRODUCTS SUCH RUBBER GLOVES, CONDOMS, DIAPHRAGMS, BALLOONS, SOCKS, OR UNDERWEAR?NO LATEX ALLERGY : HAVE YOU EVER DEVELOPED ANY TYPE OF REACTION DURING OR AFTER DENTAL APPOINTMENT, VAGINAL/RECTAL EXAMINATION, SURGICAL PROCEDURE, OR ANY OTHER EXPOSURE?NO DATE ASKED : 01/11/2019 LATEX RISK : HAVE YOU EVER HAD ANY DIFFICULTY BREATHING OR HIVES AFTER EATING OR HANDLING ANY FRUITS, OR VEGETABLES; SUCH KIWI, BANANAS, STONE FRUITS, OR CHESTNUTSNO LATEX RISK : DO YOU HAVE A PREVIOUS PERSONAL HISTORY OF MORE THAN NINE SURGERIES, SPINA BIFIDA, OR REPEATED CATHERTIZATIONS? NO LATEX RISK : ARE YOU FREQUENTLY EXPOSED TO LATEX PRODUCTS IN YOUR OCCUPATION?NO ADVANCE DIRECTIVE ADVANCE DIRECTIVE DISCUSSED WITH PATIENT:YES 02/26/19 PT DOES NOT HAVE ANY ADVANCED DIRECTIVES AND SHE DECLINES INFOMATION ON HCP AT THIS TIME. AD EDUCATION LEVEL OF EDUCATION:NOT FINISHED COLLEGE SIKHISM [id number] BAPTIST LANGUAGE LANGUAGES SPOKEN:TURKMEN DOMESTIC VIOLENCE DO YOU FEEL SAFE IN YOUR ENVIRONMENT?YES ALCOHOL SCREENING DID YOU HAVE A DRINK CONTAINING ALCOHOL IN THE PAST YEAR?NO POINTS0 INTERPRETATIONNEGATIVE RECREATIONAL DRUG USE DRUG USE?NO LEARNING BARRIERS / SPECIAL NEEDS BARRIERS TO LEARNING?NO HEARING IMPAIRED?NO VISION IMPAIRED?NO COGNITIVELY IMPAIRED?NO READINESS TO LEARN?YES LEARNING PREFERENCES?YES :BOOKLETS, HANDOUTS LEARNING CAPABILITIES PRESENT?YES EMOTIONAL BARRIERS?NO SPECIAL DEVICES?YES :CANE OCCASSIOANALLY MASTER TAX ADVISOR NEEDED?NO REVIEWED WITH PT 08/10/18 3567 LAS01/11/19 REVIEWED WITH PTBob LEE WITH PATIENT 02/01/19 1041 JS. HOSPITALIZATION/MAJOR DIAGNOSTIC PROCEDURE RELATED TO CHILDBIRTH AND SUGERY REVIEW OF SYSTEMS REVIEWED BY: PROVIDER: SEAN TOLBERT . CONSTITUTIONAL: ANY CHANGE IN YOUR MEDICAL CONDITION? NO . CHILLS NO . FEVER NO . INFECTION: DO YOU HAVE NEW INFECTIONS? NO . DO YOU HAVE HISTORY OF MRSA? NO . MUSCULOSKELETAL: ANY NEW PATTERNS OF PAIN OR NUMBNESS? NO . GASTROENTEROLOGY: ANY NEW CHANGE IN BOWEL CONTROL? NO . GENITOURINARY: ANY NEW CHANGE IN BLADDER CONTROL? NO . IS THERE A CHANCE YOU COULD BE ? NO . HEMATOLOGY/LYMPH: DO YOU TAKE ANY BLOOD THINNERS? (FOR EXAMPLE- COUMADIN, PLAVIX, AGGRENOX, PLATEL, PRADAXA, OR XARELTO) NO . WHEN WAS YOUR LAST DOSE? DATE: TIME: . NEUROLOGY: HAVE YOU FALLEN IN THE PAST 12 MONTHS? NO . ANY NEW EXTREMITY NUMBNESS OR WEAKNESS? NO . CARDIOLOGY: DO YOU HAVE A PACEMAKER OR DEFIBRILLATOR? NO . RESPIRATORY: HAVE YOU BEEN SICK IN THE PAST WEEK? NO . FEVER NO . FLU LIKE SYMPTOMS? NO . COUGH NO . INTEGUMENTARY: DO YOU HAVE ANY RASHES OR OPEN SORES? NO . ALLERGIC/IMMUNO: ARE YOU ALLERGIC TO IV DYE? NO . ANY NEW ALLERGIES? NO . PSYCHIATRIC: DO YOU HAVE THOUGHTS OF HURTING YOURSELF OR SOMEONE ELSE? NO . ARE YOU ABUSED, NEGLECTED, OR IN AN UNSAFE ENVIRONMENT? NO . ENDOCRINOLOGY: ARE YOU DIABETIC? YES, FSBS LAST NIGHT 159 . OTHER: DO YOU NEED ANY PRESCRIPTIONS? YES . IF YES, PLEASE LIST: DULOXETINE . ANY NEW PROBLEMS WITH YOUR MEDICATIONS? NO . WHEN DID YOU LAST EAT? ____ . WHEN DID YOU LAST DRINK? ____ . WHAT DID YOU LAST DRINK? ____ . NAME OF PERSON DRIVING YOU HOME? ____ . DO YOU HAVE ANY OTHER QUESTIONS OR CONCERNS NO . VITAL SIGNS WT 199.6 LBS, HT 67 IN, BMI 31.26 INDEX, BP 154/72 MM HG, HR 98 /MIN, RR 16 /MIN, TEMP 97.9 F, OXYGEN SAT % 98%, SAFE IN ENV? (Y/N) Y, NA INITIALS OH 08:42, REVIEWED BY: OSMAR. EXAMINATION GENERAL EXAMINATION: GENERAL APPEARANCE:AWAKE,ALERT ,PLEAASANT . PSYCHAFFECT NORMAL . LUNGS:LUNG TIJERINA ARE CLEAR TO AUSCULTATION BILATERALLY. GOOD MOVEMENT OF AIR . HEART:S1, S2 IN A REGULAR RATE AND RHYTHM. NO SIGNIFICANT MURMURS, RUBS OR GALLOPS NOTED . ASSESSMENTS LUMBOSACRAL SPONDYLOLYSIS - M43.07 (PRIMARY) TREATMENT LUMBOSACRAL SPONDYLOLYSIS REFILL DULOXETINE HCL CAPSULE DELAYED RELEASE PARTICLES, 60 MG, 1 CAPSULE, ORALLY, DAILY, 30 DAY(S), 30 CAPSULE, REFILLS 2 START CYCLOBENZAPRINE HCL TABLET, 5 MG, 1 TABLET NEEDED, ORALLY, Q8H PRN, 30 DAY(S), 45, REFILLS 1 PROCEDURE CODES FA211 ESTABILISHED PATIENT [facility] CHARGE DISPOSITION & COMMUNICATION FOLLOW UP 2 MONTHS ELECTRONICALLY SIGNED BY TOMASZ KOO ON 03/12/2019 AT 06:01 PM EDT DISCLAIMER : THIS IS A VISIT SUMMARY EXTRACTED FROM THE [employer] CHART. IT IS NOT A COPY OF THE [employer] PROGRESS NOTE. ROMIE
== END ==
LOC: M PAIN 08:30
PROVIDERS: ATTEND Nurse Practitioner Family
DX: M43.07 Spondylolysis, lumbosacral region (principal); K21.9 Gastro-esophageal reflux disease without esophagitis; M79.7 Fibromyalgia; E11.9 Type 2 diabetes mellitus without complications; E78.5 Hyperlipidemia, unspecified; Z86.59 Personal history of other mental and behavioral disorders; G25.81 Restless legs syndrome; G62.9 Polyneuropathy, unspecified; F17.210 Nicotine dependence, cigarettes, uncomplicated; Z88.0 Allergy status to penicillin; Z88.5 Allergy status to narcotic agent; Z88.6 Allergy status to analgesic agent; Z88.8 Allergy status to other drugs, medicaments and biological substances; Z79.84 Long term (current) use of oral hypoglycemic drugs; Z79.899 Other long term (current) drug therapy

== ENCOUNTER → 2019-06-18 | Outpatient (CLI) | payer MEDICARE ==
--- NOTE | 2019-06-20 00:35 | ECWPNPC ---
PATIENT NAME: MITCHELL AYALA : 1970 GENDER: FEMALE VISIT DATE: 06/18/2019 DISCHARGE DATE: 06/18/19925 VISIT LOCKED DATE TIME: PHYSICIAN: ISABEL JOHNSON RESOURCE: ISABEL JOHNSON REASON FOR APPOINTMENT 1. 1 MO MEDS HISTORY OF PRESENT ILLNESS HISTORY OF PRESENT ILLNESS: PAIN THE PATIENT DESCRIBES THE PAIN... 49 YEAR OLD FEMALE IN FOR CHRONIC PAIN FOLLOW UP. HER FLEXERIL WAS INCREASED AT LAST VISIT BUT PATIENT ADMITS SHE WAS UNABLE TO CIGARETTE FILTER INSPECTOR HER PRESCRIPTIONS LAST MONTH. SHE RATES HER PAIN AT A 10/10 CURRENTLY AND DESCRIBES IT ACHING, SHARP, STABBING, SHOOTING, AND TENDER. FALL RISK SCREENING: SCREENING :NO FALLS REPORTED IN THE LAST YEAR CURRENT MEDICATIONS TAKING PRILOSEC 20 MG CAPSULE DELAYED RELEASE 1 CAP ORALLY BID TAKING OXYBUTYNIN CHLORIDE ER 5 MG TABLET EXTENDED RELEASE 24 HOUR 1 TABLET ORALLY BID TAKING TYLENOL EXTRA STRENGTH 500 MG TABLET 2 TABLET NEEDED ORALLY EVERY 6 HRS TAKING METFORMIN HCL 1000 MG TABLET 1 TABLET WITH MEALS ORALLY TWICE A DAY TAKING EXCEDRIN MIGRAINE 250-250-65 MG TABLET 2 TABLETS NEEDED ORALLY EVERY 6 HRS TAKING BENADRYL ALLERGY 25 MG TABLET 1 TABLET NEEDED ORALLY EVERY 6 HRS TAKING CYCLOBENZAPRINE HCL 10 MG TABLET 1 TABLET NEEDED ORALLY Q8H PRN TAKING DULOXETINE HCL 60 MG CAPSULE DELAYED RELEASE PARTICLES 1 CAPSULE ORALLY DAILY NOT-TAKING ATORVASTATIN CALCIUM 10 MG TABLET 1 CAP ORALLY DAILY NOT-TAKING GLIPIZIDE 5 MG TABLET 1 TABLET ORALLY ONCE A DAY MEDICATION LIST REVIEWED AND RECONCILED WITH THE PATIENT PAST MEDICAL HISTORY GERD BACK AND NECK PAIN FIBROMYALGIA DIABETIC HYPERLIPIDEMIA TENDONITIS ? LUPUS DEPRESSION/ANXIETY RESTLESS LEG SYNDROME NEUROPATHY ACUTE RIGHT HIP PAIN ALLERGIES PENICILLIN (FOR ALLERGIES USE ONLY): ANAPHYLAXIS - ALLERGY MOTRIN: NAUSEA/VOMITING - SIDE EFFECTS CODEINE PHOSPHATE (FOR ALLERGIES USE ONLY): NAUSEA/VOMITING - SIDE EFFECTS MORPHINE SULFATE: NAUSEA/VOMITING - SIDE EFFECTS MILNACIPRAN HCL: NAUSEA/VOMITING - SIDE EFFECTS SAVELLA: FLUSHING - SIDE EFFECTS GABAPENTIN: RASH - ALLERGY OXYCODONE: ITCHING - ALLERGY LORATADINE: ITCHNG/RASH - ALLERGY SURGICAL HISTORY LEFT WRIST WITH BLADDER REPAIR ALL MAXILLARY TEETH PULLED 2017 FAMILY HISTORY FATHER: ALIVE, DOESN'T KNOW HIS HISTORY MOTHER: , CERVICAL CANCER, DIAGNOSED WITH CANCER 1 BROTHER(S) . 3 SON(S) - HEALTHY. SOCIAL HISTORY GENERAL: TOBACCO USE ARE YOU A:CURRENT SMOKER ARE YOU INTERESTED IN QUITTING?THINKING ABOUT QUITTING CHANTIX IS TOO EXPENSIVE PREVIOUS QUIT ATTEMPTS?YES, WITHIN THE LAST 6 MONTHS. COUNSELED THE PATIENT ON SMOKING CESSATION, EDUCATION [id number]/29/2019 HOW MANY CIGARETTES A DAY DO YOU SMOKE?21-30 PATIENT COUNSELED ON THE DANGERS OF TOBACCO USE AND URGED TO QUIT:02/26/2019 PAIN CLINIC PFS, CLERGY, PUBLIC HEALTH REFERRALS PFS REFERRAL NEEDED?NO CLERGY REFERRAL NEEDED?NO PUBLIC HEALTH REFERRAL NEEDED?NO WAS THE PROVIDER NOTIFIED OF ANY PERTINENT INFO? N/A HAS THE PATIENT BEEN EDUCATED REGARDING HIS/HER PLAN OF CARE?YES HAS THE PATIENT BEEN EDUCATED REGARDING PAIN, THE RISK FOR PAIN, THE IMPORTANCE OF EFFECTIVE PAIN MANAGEMENT, AND THE PAIN ASSESSMENT PROCESS?YES LATEX QUESTIONNAIRE LATEX ALLERGY : HAVE YOU EVER DEVELOPED ANY TYPE OF REACTION AFTER HANDLING LATEX PRODUCTS SUCH RUBBER GLOVES, CONDOMS, DIAPHRAGMS, BALLOONS, SOCKS, OR UNDERWEAR?NO LATEX ALLERGY : HAVE YOU EVER DEVELOPED ANY TYPE OF REACTION DURING OR AFTER DENTAL APPOINTMENT, VAGINAL/RECTAL EXAMINATION, SURGICAL PROCEDURE, OR ANY OTHER EXPOSURE?NO LATEX RISK : HAVE YOU EVER HAD ANY DIFFICULTY BREATHING OR HIVES AFTER EATING OR HANDLING ANY FRUITS, OR VEGETABLES; SUCH KIWI, BANANAS, STONE FRUITS, OR CHESTNUTSNO LATEX RISK : DO YOU HAVE A PREVIOUS PERSONAL HISTORY OF MORE THAN NINE SURGERIES, SPINA BIFIDA, OR REPEATED CATHERIZATIONS? NO LATEX RISK : ARE YOU FREQUENTLY EXPOSED TO LATEX PRODUCTS IN YOUR OCCUPATION?NO DATE ASKED : 01/11/2019 ADVANCE DIRECTIVE ADVANCE DIRECTIVE DISCUSSED WITH PATIENT:YES PT DOES NOT HAVE ANY ADVANCED DIRECTIVES AND SHE DECLINES INFOMATION ON HCP AT THIS TIME. EDUCATION LEVEL OF EDUCATION:NOT FINISHED COLLEGE SPIRITISM [id number] [employer]UZE LANGUAGE LANGUAGES SPOKEN:AZERI DOMESTIC VIOLENCE DO YOU FEEL SAFE IN YOUR ENVIRONMENT?YES ALCOHOL SCREENING DID YOU HAVE A DRINK CONTAINING ALCOHOL IN THE PAST YEAR?NO POINTS0 INTERPRETATIONNEGATIVE RECREATIONAL DRUG USE DRUG USE?NO LEARNING BARRIERS / SPECIAL NEEDS BARRIERS TO LEARNING?NO HEARING IMPAIRED?NO VISION IMPAIRED?NO COGNITIVELY IMPAIRED?NO READINESS TO LEARN?YES LEARNING PREFERENCES?YES :BOOKLETS, HANDOUTS LEARNING CAPABILITIES PRESENT?YES EMOTIONAL BARRIERS?NO SPECIAL DEVICES?YES :CANE OCCASSIOANALLY SAFETY INSTRUCTOR NEEDED?NO REVIEWED WITH PT 08/10/18 0928 01/11/19 REVIEWED WITH PT. ADREVIEWED WITH PATIENT 02/01/19 1041 JSREVIEWED WITH PT 05/16/19 0916 BVREVIEWED WITH PT 06/18/19 0904 LAS. HOSPITALIZATION/MAJOR DIAGNOSTIC PROCEDURE RELATED TO CHILDBIRTH AND SUGERY REVIEW OF SYSTEMS REVIEWED BY: PROVIDER: NYASIA SANCHEZ . CONSTITUTIONAL: ANY CHANGE IN YOUR MEDICAL CONDITION? NO . CHILLS NO . FEVER NO . INFECTION: DO YOU HAVE NEW INFECTIONS? NO . DO YOU HAVE HISTORY OF MRSA? NO . MUSCULOSKELETAL: ANY NEW PATTERNS OF PAIN OR NUMBNESS? NO . GASTROENTEROLOGY: ANY NEW CHANGE IN BOWEL CONTROL? NO . GENITOURINARY: ANY NEW CHANGE IN BLADDER CONTROL? NO . IS THERE A CHANCE YOU COULD BE ? NO . HEMATOLOGY/LYMPH: DO YOU TAKE ANY BLOOD THINNERS? (FOR EXAMPLE- COUMADIN, PLAVIX, AGGRENOX, PLATEL, PRADAXA, OR XARELTO) NO . WHEN WAS YOUR LAST DOSE? DATE: TIME: . NEUROLOGY: HAVE YOU FALLEN IN THE PAST 12 MONTHS? NO . ANY NEW EXTREMITY NUMBNESS OR WEAKNESS? NO . CARDIOLOGY: DO YOU HAVE A PACEMAKER OR DEFIBRILLATOR? NO . RESPIRATORY: HAVE YOU BEEN SICK IN THE PAST WEEK? NO . FEVER NO . FLU LIKE SYMPTOMS? NO . COUGH NO . INTEGUMENTARY: DO YOU HAVE ANY RASHES OR OPEN SORES? NO . ALLERGIC/IMMUNO: ARE YOU ALLERGIC TO IV DYE? NO . ANY NEW ALLERGIES? NO . PSYCHIATRIC: DO YOU HAVE THOUGHTS OF HURTING YOURSELF OR SOMEONE ELSE? NO . ARE YOU ABUSED, NEGLECTED, OR IN AN UNSAFE ENVIRONMENT? NO . ENDOCRINOLOGY: ARE YOU DIABETIC? NO . OTHER: DO YOU NEED ANY PRESCRIPTIONS? NO . IF YES, PLEASE LIST: ____ . ANY NEW PROBLEMS WITH YOUR MEDICATIONS? NO . WHEN DID YOU LAST EAT? ____ . WHEN DID YOU LAST DRINK? ____ . WHAT DID YOU LAST DRINK? ____ . NAME OF PERSON DRIVING YOU HOME? ____ . DO YOU HAVE ANY OTHER QUESTIONS OR CONCERNS YES PATIENT REPORTS SHE WAS UNABLE TO CIGARETTE FILTER INSPECTOR HER PRESCRIPTIONS LAST MONTH, SHE CAN NOW, AND WONDERS IF THEY NEED TO BE REPRESCRIBED. . VITAL SIGNS WT 198.0 LBS, HT 67 IN, BMI 31.01 INDEX, BP 131/78 MM HG, HR 108 /MIN, RR 16 /MIN, TEMP 96.0 F, OXYGEN SAT % 97%, SAFE IN ENV? (Y/N) YES, NA INITIALS AW 0856, REVIEWED BY: MANISHA. EXAMINATION GENERAL EXAMINATION: GENERALNO ACUTE DISTRESS, WELL NOURISHED AND HYDRATED. PSYCHAPPROPRIATE MOOD AND AFFECT . LUNGS:CLEAR TO AUSCULTATION BILATERALLY, NO WHEEZES, RHONCHI, RALES. HEART:NO MURMURS, REGULAR RATE AND RHYTHM. ASSESSMENTS LUMBOSACRAL SPONDYLOLYSIS - M43.07 (PRIMARY) TREATMENT LUMBOSACRAL SPONDYLOLYSIS REFILL CYCLOBENZAPRINE HCL TABLET, 10 MG, 1 TABLET NEEDED, ORALLY, Q8H PRN, 30 DAYS, 90 REFILL DULOXETINE HCL CAPSULE DELAYED RELEASE PARTICLES, 60 MG, 1 CAPSULE, ORALLY, DAILY, 30 DAYS, 30 CAPSULE, REFILLS 2 CLINICAL NOTES: 49 YEAR OLD FEMALE IN FOR CHRONIC PAIN FOLLOW UP. GIVEN PRESENTING SYMPTOMS AND RESULTS OF PHYSICAL EXAMINATION RECOMMENDED RESTARTING MEDICATIONS WITH FOLLOW UP IN 1 MONTH. PATIENT HAS EXPRESSED UNDERSTANDING OF AND WAS IN AGREEMENT WITH TREATMENT PLAN. GIVEN TIME TO ASK QUESTIONS AND EXPRESS CONCERNS. PROCEDURE CODES FA211 ESTABILISHED PATIENT [facility] FACILITY CHARGE DISPOSITION & COMMUNICATION FOLLOW UP 4 WEEKS (REASON: MEDICATION CHANGE ) ELECTRONICALLY SIGNED BY TOMASZ ALEJO ON 06/19/2019 AT 08:44 AM EDT DISCLAIMER : THIS IS A VISIT SUMMARY EXTRACTED FROM THE [employer] CHART. IT IS NOT A COPY OF THE [employer] PROGRESS NOTE. ROMIE
== END ==
LOC: M PAIN 08:45
PROVIDERS: ATTEND Family Medicine
DX: M43.07 Spondylolysis, lumbosacral region (principal); G89.29 Other chronic pain; K21.9 Gastro-esophageal reflux disease without esophagitis; M79.7 Fibromyalgia; E11.40 Type 2 diabetes mellitus with diabetic neuropathy, unspecified; E78.5 Hyperlipidemia, unspecified; Z86.59 Personal history of other mental and behavioral disorders; G25.81 Restless legs syndrome; F17.210 Nicotine dependence, cigarettes, uncomplicated; Z88.0 Allergy status to penicillin; Z88.5 Allergy status to narcotic agent; Z88.6 Allergy status to analgesic agent; Z88.8 Allergy status to other drugs, medicaments and biological substances; Z79.84 Long term (current) use of oral hypoglycemic drugs; Z79.899 Other long term (current) drug therapy

== ENCOUNTER → 2019-07-19 | Outpatient (CLI) | payer MEDICARE ==
--- NOTE | 2019-07-21 00:54 | ECWPNPC ---
PATIENT NAME: MITCHELL AYALA : 1970 GENDER: FEMALE VISIT DATE: 07/19/2019 DISCHARGE DATE: 07/19/19924 VISIT LOCKED DATE TIME: PHYSICIAN: ISABEL JOHNSON RESOURCE: ISABEL JOHNSON REASON FOR APPOINTMENT 1. MEDICATION CHANGE HISTORY OF PRESENT ILLNESS HISTORY OF PRESENT ILLNESS: PAIN THE PATIENT DESCRIBES THE PAIN... 49-YEAR-OLD FEMALE IN FOR CHRONIC PAIN FOLLOW-UP. AT LAST CLINIC VISIT SHE WAS RESTARTED ON HER MEDICATIONS AND SHE REPORTS TODAY THAT HER PAIN HAS REMAINED THE SAME. SHE CURRENTLY RATES HER PAIN AT A 10 OUT OF 10 AND DESCRIBES IT ACHING, SHARP, STABBING, SORE, AND SHOOTING. FALL RISK SCREENING: SCREENING :NO FALLS REPORTED IN THE LAST YEAR CURRENT MEDICATIONS TAKING PRILOSEC 20 MG CAPSULE DELAYED RELEASE 1 CAP ORALLY BID TAKING TYLENOL EXTRA STRENGTH 500 MG TABLET 2 TABLET NEEDED ORALLY EVERY 6 HRS TAKING METFORMIN HCL 1000 MG TABLET 1 TABLET WITH MEALS ORALLY TWICE A DAY TAKING EXCEDRIN MIGRAINE 250-250-65 MG TABLET 2 TABLETS NEEDED ORALLY EVERY 6 HRS TAKING BENADRYL ALLERGY 25 MG TABLET 1 TABLET NEEDED ORALLY EVERY 6 HRS TAKING CYCLOBENZAPRINE HCL 10 MG TABLET 1 TABLET NEEDED ORALLY Q8H PRN TAKING DULOXETINE HCL 60 MG CAPSULE DELAYED RELEASE PARTICLES 1 CAPSULE ORALLY DAILY TAKING IBUPROFEN 600 MG TABLET 1 TABLET WITH FOOD OR MILK NEEDED ORALLY THREE TIMES A DAY NOT-TAKING OXYBUTYNIN CHLORIDE ER 5 MG TABLET EXTENDED RELEASE 24 HOUR 1 TABLET ORALLY BID, NOTES: OUT OF THIS MED SINCE A MONTH AGO UNKNOWN ATORVASTATIN CALCIUM 10 MG TABLET 1 CAP ORALLY DAILY UNKNOWN GLIPIZIDE 5 MG TABLET 1 TABLET ORALLY ONCE A DAY MEDICATION LIST REVIEWED AND RECONCILED WITH THE PATIENT PAST MEDICAL HISTORY GERD BACK AND NECK PAIN FIBROMYALGIA DIABETIC HYPERLIPIDEMIA TENDONITIS ? LUPUS DEPRESSION/ANXIETY RESTLESS LEG SYNDROME NEUROPATHY ACUTE RIGHT HIP PAIN ALLERGIES PENICILLIN (FOR ALLERGIES USE ONLY): ANAPHYLAXIS - ALLERGY MOTRIN: NAUSEA/VOMITING - SIDE EFFECTS CODEINE PHOSPHATE (FOR ALLERGIES USE ONLY): NAUSEA/VOMITING - SIDE EFFECTS MORPHINE SULFATE: NAUSEA/VOMITING - SIDE EFFECTS MILNACIPRAN HCL: NAUSEA/VOMITING - SIDE EFFECTS SAVELLA: FLUSHING - SIDE EFFECTS GABAPENTIN: RASH - ALLERGY OXYCODONE: ITCHING - ALLERGY LORATADINE: ITCHNG/RASH - ALLERGY SURGICAL HISTORY LEFT WRIST WITH BLADDER REPAIR ALL MAXILLARY TEETH PULLED 2017 FAMILY HISTORY FATHER: ALIVE, DOESN'T KNOW HIS HISTORY MOTHER: , CERVICAL CANCER, DIAGNOSED WITH OTHER MALIGNANT NEOPLASM OF UNSPECIFIED SITE 1 BROTHER(S) . 3 SON(S) - HEALTHY. SOCIAL HISTORY GENERAL: TOBACCO USE ARE YOU A:CURRENT SMOKER ARE YOU INTERESTED IN QUITTING?THINKING ABOUT QUITTING CHANTIX IS TOO EXPENSIVE PREVIOUS QUIT ATTEMPTS?YES, WITHIN THE LAST 6 MONTHS. COUNSELED THE PATIENT ON SMOKING CESSATION, EDUCATION [id number]/29/2019 HOW MANY CIGARETTES A DAY DO YOU SMOKE?- PATIENT COUNSELED ON THE DANGERS OF TOBACCO USE AND URGED TO QUIT:07/19/2019 PAIN CLINIC PFS, CLERGY, PUBLIC HEALTH REFERRALS PFS REFERRAL NEEDED?NO CLERGY REFERRAL NEEDED?NO PUBLIC HEALTH REFERRAL NEEDED?NO WAS THE PROVIDER NOTIFIED OF ANY PERTINENT INFO? N/A HAS THE PATIENT BEEN EDUCATED REGARDING HIS/HER PLAN OF CARE?YES HAS THE PATIENT BEEN EDUCATED REGARDING PAIN, THE RISK FOR PAIN, THE IMPORTANCE OF EFFECTIVE PAIN MANAGEMENT, AND THE PAIN ASSESSMENT PROCESS?YES LATEX QUESTIONNAIRE LATEX ALLERGY : HAVE YOU EVER DEVELOPED ANY TYPE OF REACTION AFTER HANDLING LATEX PRODUCTS SUCH RUBBER GLOVES, CONDOMS, DIAPHRAGMS, BALLOONS, SOCKS, OR UNDERWEAR?NO LATEX ALLERGY : HAVE YOU EVER DEVELOPED ANY TYPE OF REACTION DURING OR AFTER DENTAL APPOINTMENT, VAGINAL/RECTAL EXAMINATION, SURGICAL PROCEDURE, OR ANY OTHER EXPOSURE?NO LATEX RISK : HAVE YOU EVER HAD ANY DIFFICULTY BREATHING OR HIVES AFTER EATING OR HANDLING ANY FRUITS, OR VEGETABLES; SUCH KIWI, BANANAS, STONE FRUITS, OR CHESTNUTSNO LATEX RISK : DO YOU HAVE A PREVIOUS PERSONAL HISTORY OF MORE THAN NINE SURGERIES, SPINA BIFIDA, OR REPEATED CATHERIZATIONS? NO LATEX RISK : ARE YOU FREQUENTLY EXPOSED TO LATEX PRODUCTS IN YOUR OCCUPATION?NO DATE ASKED : 01/11/2019 ADVANCE DIRECTIVE ADVANCE DIRECTIVE DISCUSSED WITH PATIENT:YES PT DOES NOT HAVE ANY ADVANCED DIRECTIVES AND SHE DECLINES INFOMATION ON HCP AT THIS TIME. EDUCATION LEVEL OF EDUCATION:NOT FINISHED COLLEGE CHRISTIAN [id number] [employer] LANGUAGE LANGUAGES SPOKEN:HEBREW DOMESTIC VIOLENCE DO YOU FEEL SAFE IN YOUR ENVIRONMENT?YES ALCOHOL SCREENING DID YOU HAVE A DRINK CONTAINING ALCOHOL IN THE PAST YEAR?NO POINTS0 INTERPRETATIONNEGATIVE RECREATIONAL DRUG USE DRUG USE?NO LEARNING BARRIERS / SPECIAL NEEDS BARRIERS TO LEARNING?NO HEARING IMPAIRED?NO VISION IMPAIRED?NO COGNITIVELY IMPAIRED?NO READINESS TO LEARN?YES LEARNING PREFERENCES?YES :BOOKLETS, HANDOUTS LEARNING CAPABILITIES PRESENT?YES EMOTIONAL BARRIERS?NO SPECIAL DEVICES?YES :CANE OCCASSIOANALLY PIPELINE DISPATCHER NEEDED?NO REVIEWED WITH PT 08/10/18 0928 LAS01/11/19 REVIEWED WITH PT. ROSA WITH PATIENT 02/01/19 1041 JSREVIEWED WITH PT 05/16/19 0916 BVREVIEWED WITH PT 06/18/19 0904 LAS. HOSPITALIZATION/MAJOR DIAGNOSTIC PROCEDURE RELATED TO CHILDBIRTH AND SUGERY REVIEW OF SYSTEMS REVIEWED BY: PROVIDER: NYASIA JOHNSON [address] [employer] OFFICER-C . CONSTITUTIONAL: ANY CHANGE IN YOUR MEDICAL CONDITION? NO . CHILLS NO . FEVER NO . INFECTION: DO YOU HAVE NEW INFECTIONS? NO . DO YOU HAVE HISTORY OF MRSA? NO . MUSCULOSKELETAL: ANY NEW PATTERNS OF PAIN OR NUMBNESS? NO . GASTROENTEROLOGY: ANY NEW CHANGE IN BOWEL CONTROL? NO . GENITOURINARY: ANY NEW CHANGE IN BLADDER CONTROL? NO . IS THERE A CHANCE YOU COULD BE ? NO . HEMATOLOGY/LYMPH: DO YOU TAKE ANY BLOOD THINNERS? (FOR EXAMPLE- COUMADIN, PLAVIX, AGGRENOX, PLATEL, PRADAXA, OR XARELTO) NO . WHEN WAS YOUR LAST DOSE? DATE: TIME: . NEUROLOGY: HAVE YOU FALLEN IN THE PAST 12 MONTHS? NO . ANY NEW EXTREMITY NUMBNESS OR WEAKNESS? NO . CARDIOLOGY: DO YOU HAVE A PACEMAKER OR DEFIBRILLATOR? NO . RESPIRATORY: HAVE YOU BEEN SICK IN THE PAST WEEK? NO . FEVER NO . FLU LIKE SYMPTOMS? NO . COUGH NO . INTEGUMENTARY: DO YOU HAVE ANY RASHES OR OPEN SORES? NO . ALLERGIC/IMMUNO: ARE YOU ALLERGIC TO IV DYE? NO . ANY NEW ALLERGIES? NO . PSYCHIATRIC: DO YOU HAVE THOUGHTS OF HURTING YOURSELF OR SOMEONE ELSE? NO . ARE YOU ABUSED, NEGLECTED, OR IN AN UNSAFE ENVIRONMENT? NO . ENDOCRINOLOGY: ARE YOU DIABETIC? YES . OTHER: DO YOU NEED ANY PRESCRIPTIONS? NO . IF YES, PLEASE LIST: ____ . ANY NEW PROBLEMS WITH YOUR MEDICATIONS? NO . WHEN DID YOU LAST EAT? ____ . WHEN DID YOU LAST DRINK? ____ . WHAT DID YOU LAST DRINK? ____ . NAME OF PERSON DRIVING YOU HOME? ____ . DO YOU HAVE ANY OTHER QUESTIONS OR CONCERNS NO . VITAL SIGNS WT 193.2 LBS, HT 67 IN, BMI 30.26 INDEX, BP 132/75 MM HG, HR 65 /MIN, RR 16 /MIN, TEMP 97.1 F, OXYGEN SAT % 99%, SAFE IN ENV? (Y/N) YES, NA INITIALS SC 09:50, REVIEWED BY: LIEN. EXAMINATION GENERAL EXAMINATION: GENERALNO ACUTE DISTRESS, WELL NOURISHED AND HYDRATED. PSYCHAPPROPRIATE MOOD AND AFFECT . LUNGS:CLEAR TO AUSCULTATION BILATERALLY, NO WHEEZES, RHONCHI, RALES. HEART:NO MURMURS, REGULAR RATE AND RHYTHM. ASSESSMENTS LUMBAR RADICULOPATHY - M54.16 (PRIMARY) LUMBOSACRAL SPONDYLOLYSIS - M43.07 TREATMENT LUMBAR RADICULOPATHY START CYMBALTA CAPSULE DELAYED RELEASE PARTICLES, 30 MG, 1 CAPSULE, ORALLY, ONCE A DAY, 30 DAY(S), 30 CLINICAL NOTES: 49-YEAR-OLD FEMALE IN FOR CHRONIC PAIN FOLLOW-UP. GIVEN PRESENTING SYMPTOMS AND RESULTS OF PHYSICAL EXAMINATION RECOMMENDED INCREASING CYMBALTA WITH FOLLOW-UP IN ONE MONTH TO DETERMINE EFFICACY OF TREATMENT. PATIENT HAS EXPRESSED UNDERSTANDING OF AND WAS IN AGREEMENT WITH TREATMENT PLAN. GIVEN TIME TO ASK QUESTIONS AND EXPRESS CONCERNS. PROCEDURE CODES FA211 ESTABILISHED PATIENT [facility] FACILITY CHARGE DISPOSITION & COMMUNICATION FOLLOW UP 4 WEEKS (REASON: MEDICATION INCREASE ) ELECTRONICALLY SIGNED BY TOMASZ ALEJO ON 07/20/2019 AT 09:13 AM EDT DISCLAIMER : THIS IS A VISIT SUMMARY EXTRACTED FROM THE [employer] CHART. IT IS NOT A COPY OF THE [employer] PROGRESS NOTE. ROMIE
== END ==
LOC: M PAIN 08:45
PROVIDERS: ATTEND Family Medicine
DX: M54.16 Radiculopathy, lumbar region (principal); M43.07 Spondylolysis, lumbosacral region; G89.29 Other chronic pain; K21.9 Gastro-esophageal reflux disease without esophagitis; M79.7 Fibromyalgia; E11.40 Type 2 diabetes mellitus with diabetic neuropathy, unspecified; E78.5 Hyperlipidemia, unspecified; Z86.59 Personal history of other mental and behavioral disorders; G25.81 Restless legs syndrome; F17.210 Nicotine dependence, cigarettes, uncomplicated; Z88.0 Allergy status to penicillin; Z88.5 Allergy status to narcotic agent; Z88.8 Allergy status to other drugs, medicaments and biological substances; Z79.84 Long term (current) use of oral hypoglycemic drugs; Z79.899 Other long term (current) drug therapy

== ENCOUNTER → 2019-08-15 | Outpatient (REF) | payer MEDICARE ==
[2019-08-15 13:35] LABS: BASO % 0.5 % (0.0-1.0); EOS # 0.1 10^3/uL (0.0-0.5); EOS % 0.9 % (0.0-3.0); HEMATOCRIT 42.8 % (36.0-47.0); HEMOGLOBIN 14.1 g/dl (12.0-15.5); LYMPH # 2.6 10^3/uL (1.5-5.0); LYMPH % 33.4 % (24.0-44.0); MEAN CORPUSCULAR HEMOGLOBIN 28.3 pg (27.0-33.0); MEAN CORPUSCULAR HGB CONC 32.9 g/dl (32.0-36.5); MEAN CORPUSCULAR VOLUME 85.9 fl (80.0-96.0); MONO # 0.6 10^3/uL (0.0-0.8); MONO % 7.5 % (0.0-5.0); NEUTROPHILS # 4.5 10^3/uL (1.5-8.5); NEUTROPHILS % 57.4 % (36.0-66.0); PLATELET COUNT, AUTOMATED 449 10^3/uL (150-450); RED BLOOD COUNT 4.98 10^6/uL (4.00-5.40); WHITE BLOOD COUNT 7.9 10^3/uL (4.0-10.0)
[2019-08-15 14:01] LABS: ALBUMIN 3.8 GM/DL (3.2-5.2); ALT/SGPT 28 U/L (12-78); BILIRUBIN,TOTAL 0.3 MG/DL (0.2-1.0); BLOOD UREA NITROGEN 14 MG/DL (7-18); CALCIUM LEVEL 9.8 MG/DL (8.5-10.1); CARBON DIOXIDE LEVEL 26 MEQ/L (21-32); CHLORIDE LEVEL 98 MEQ/L (98-107); CHOLESTEROL LEVEL 407 MG/DL (<200); CHOLESTEROL RISK RATIO 8.479 (<5); CREATININE FOR GFR 0.86 MG/DL (0.55-1.30); FREE T4 1.02 NG/DL (0.76-1.46); GLOMERULAR FILTRATION RATE > 60.0 (>58); GLUCOSE, FASTING 272 MG/DL (70-100); HDL CHOLESTEROL 48 MG/DL (>40); NON-HDL-C 359 MG/DL; POTASSIUM SERUM 4.7 MEQ/L (3.5-5.1); SODIUM LEVEL 132 MEQ/L (136-145); TOTAL PROTEIN 7.4 GM/DL (6.4-8.2); TRIGLYCERIDES LEVEL 833 MG/DL (<150)
[2019-08-15 14:02] LABS: TOTAL 25(OH) VITAMIN D 8.6 NG/ML (30.0-100.0)
[2019-08-15 14:05] LABS: HEMOGLOBIN A1c 10.9 %
== END ==
LOC: M LAB REF 12:28
PROVIDERS: ATTEND Nurse Practitioner Family
DX: Z13.9 Encounter for screening, unspecified (principal); E11.9 Type 2 diabetes mellitus without complications; Z79.899 Other long term (current) drug therapy

== ENCOUNTER → 2019-08-20 | Outpatient (CLI) | payer MEDICARE ==
--- NOTE | 2019-08-22 01:03 | ECWPNPC ---
PATIENT NAME: MITCHELL AYALA : 1970 GENDER: FEMALE VISIT DATE: 08/20/2019 DISCHARGE DATE: 08/20/19921 VISIT LOCKED DATE TIME: PHYSICIAN: ISABEL JOHNSON RESOURCE: ISABEL JOHNSON REASON FOR APPOINTMENT 1. CHRONIC PAIN HISTORY OF PRESENT ILLNESS HISTORY OF PRESENT ILLNESS: PAIN THE PATIENT DESCRIBES THE PAIN... 49-YEAR-OLD FEMALE IN FOR CHRONIC PAIN FOLLOW-UP. AT LAST CLINIC VISIT SHE WAS STARTED ON INCREASED DOSE OF CYMBALTA. SHE ADMITS TODAY THAT THE INCREASED DOSE OF CYMBALTA HAS BEEN HELPFUL HOWEVER SHE RECENTLY EXACERBATED HER CHRONIC PAIN SYMPTOMS WHEN LIFTING SOMETHING AT HOME. SHE RATES HER PAIN CURRENTLY AT A 9 OUT OF 10 AND DESCRIBES IT ACHING, SHARP, SORE, AND TENDER. FALL RISK SCREENING: SCREENING :NO FALLS REPORTED IN THE LAST YEAR CURRENT MEDICATIONS TAKING PRILOSEC 20 MG CAPSULE DELAYED RELEASE 1 CAP ORALLY BID TAKING TYLENOL EXTRA STRENGTH 500 MG TABLET 2 TABLET NEEDED ORALLY EVERY 6 HRS TAKING METFORMIN HCL 1000 MG TABLET 1 TABLET WITH MEALS ORALLY TWICE A DAY TAKING EXCEDRIN MIGRAINE 250-250-65 MG TABLET 2 TABLETS NEEDED ORALLY EVERY 6 HRS TAKING BENADRYL ALLERGY 25 MG TABLET 1 TABLET NEEDED ORALLY EVERY 6 HRS TAKING CYCLOBENZAPRINE HCL 10 MG TABLET 1 TABLET NEEDED ORALLY Q8H PRN TAKING DULOXETINE HCL 60 MG CAPSULE DELAYED RELEASE PARTICLES 1 CAPSULE ORALLY DAILY TAKING IBUPROFEN 600 MG TABLET 1 TABLET WITH FOOD OR MILK NEEDED ORALLY THREE TIMES A DAY TAKING CYMBALTA 30 MG CAPSULE DELAYED RELEASE PARTICLES 1 CAPSULE ORALLY ONCE A DAY TAKING OXYBUTYNIN CHLORIDE ER 5 MG TABLET EXTENDED RELEASE 24 HOUR 1 TABLET ORALLY BID, NOTES: OUT OF THIS MED SINCE A MONTH AGO NOT-TAKING ATORVASTATIN CALCIUM 10 MG TABLET 1 CAP ORALLY DAILY NOT-TAKING GLIPIZIDE 5 MG TABLET 1 TABLET ORALLY ONCE A DAY MEDICATION LIST REVIEWED AND RECONCILED WITH THE PATIENT PAST MEDICAL HISTORY GERD BACK AND NECK PAIN FIBROMYALGIA DIABETIC HYPERLIPIDEMIA TENDONITIS ? LUPUS DEPRESSION/ANXIETY RESTLESS LEG SYNDROME NEUROPATHY ACUTE RIGHT HIP PAIN ALLERGIES PENICILLIN (FOR ALLERGIES USE ONLY): ANAPHYLAXIS - ALLERGY MOTRIN: NAUSEA/VOMITING - SIDE EFFECTS CODEINE PHOSPHATE (FOR ALLERGIES USE ONLY): NAUSEA/VOMITING - SIDE EFFECTS MORPHINE SULFATE: NAUSEA/VOMITING - SIDE EFFECTS MILNACIPRAN HCL: NAUSEA/VOMITING - SIDE EFFECTS SAVELLA: FLUSHING - SIDE EFFECTS GABAPENTIN: RASH - ALLERGY OXYCODONE: ITCHING - ALLERGY LORATADINE: ITCHNG/RASH - ALLERGY SURGICAL HISTORY LEFT WRIST WITH BLADDER REPAIR ALL MAXILLARY TEETH PULLED 2018 FAMILY HISTORY FATHER: ALIVE, DOESN'T KNOW HIS HISTORY MOTHER: , CERVICAL CANCER, DIAGNOSED WITH OTHER MALIGNANT NEOPLASM OF UNSPECIFIED SITE 1 BROTHER(S) . 3 SON(S) - HEALTHY. SOCIAL HISTORY GENERAL: TOBACCO USE ARE YOU A:CURRENT SMOKER ARE YOU INTERESTED IN QUITTING?THINKING ABOUT QUITTING CHANTIX IS TOO EXPENSIVE PREVIOUS QUIT ATTEMPTS?YES, WITHIN THE LAST 6 MONTHS. COUNSELED THE PATIENT ON SMOKING CESSATION, EDUCATION [id number]/21/2019 HOW MANY CIGARETTES A DAY DO YOU SMOKE?- PATIENT COUNSELED ON THE DANGERS OF TOBACCO USE AND URGED TO QUIT:07/19/2019 PAIN CLINIC PFS, CLERGY, PUBLIC HEALTH REFERRALS PFS REFERRAL NEEDED?NO CLERGY REFERRAL NEEDED?NO PUBLIC HEALTH REFERRAL NEEDED?NO WAS THE PROVIDER NOTIFIED OF ANY PERTINENT INFO? N/A HAS THE PATIENT BEEN EDUCATED REGARDING HIS/HER PLAN OF CARE?YES HAS THE PATIENT BEEN EDUCATED REGARDING PAIN, THE RISK FOR PAIN, THE IMPORTANCE OF EFFECTIVE PAIN MANAGEMENT, AND THE PAIN ASSESSMENT PROCESS?YES LATEX QUESTIONNAIRE LATEX ALLERGY : HAVE YOU EVER DEVELOPED ANY TYPE OF REACTION AFTER HANDLING LATEX PRODUCTS SUCH RUBBER GLOVES, CONDOMS, DIAPHRAGMS, BALLOONS, SOCKS, OR UNDERWEAR?NO LATEX ALLERGY : HAVE YOU EVER DEVELOPED ANY TYPE OF REACTION DURING OR AFTER DENTAL APPOINTMENT, VAGINAL/RECTAL EXAMINATION, SURGICAL PROCEDURE, OR ANY OTHER EXPOSURE?NO DATE ASKED : 01/11/2019 LATEX RISK : HAVE YOU EVER HAD ANY DIFFICULTY BREATHING OR HIVES AFTER EATING OR HANDLING ANY FRUITS, OR VEGETABLES; SUCH KIWI, BANANAS, STONE FRUITS, OR CHESTNUTSNO LATEX RISK : DO YOU HAVE A PREVIOUS PERSONAL HISTORY OF MORE THAN NINE SURGERIES, SPINA BIFIDA, OR REPEATED CATHERIZATIONS? NO LATEX RISK : ARE YOU FREQUENTLY EXPOSED TO LATEX PRODUCTS IN YOUR OCCUPATION?NO ADVANCE DIRECTIVE ADVANCE DIRECTIVE DISCUSSED WITH PATIENT:YES PT DOES NOT HAVE ANY ADVANCED DIRECTIVES AND SHE DECLINES INFOMATION ON HCP AT THIS TIME. EDUCATION LEVEL OF EDUCATION:NOT FINISHED COLLEGE SCIENTOLOGY [id number] [employer] LANGUAGE LANGUAGES SPOKEN:SETSWANA DOMESTIC VIOLENCE DO YOU FEEL SAFE IN YOUR ENVIRONMENT?YES ALCOHOL SCREENING DID YOU HAVE A DRINK CONTAINING ALCOHOL IN THE PAST YEAR?NO POINTS0 INTERPRETATIONNEGATIVE RECREATIONAL DRUG USE DRUG USE?NO LEARNING BARRIERS / SPECIAL NEEDS BARRIERS TO LEARNING?NO HEARING IMPAIRED?NO VISION IMPAIRED?NO COGNITIVELY IMPAIRED?NO READINESS TO LEARN?YES LEARNING PREFERENCES?YES :BOOKLETS, HANDOUTS LEARNING CAPABILITIES PRESENT?YES EMOTIONAL BARRIERS?NO SPECIAL DEVICES?YES :CANE OCCASSIOANALLY KNITTING TESTER NEEDED?NO REVIEWED WITH PT 08/10/18 0928 LAS01/11/19 REVIEWED WITH PT. ADREVIEWED WITH PATIENT 02/01/19 1041 JSREVIEWED WITH PT 05/16/19 0916 BVREVIEWED WITH PT 06/18/19 0904 LAS. HOSPITALIZATION/MAJOR DIAGNOSTIC PROCEDURE RELATED TO CHILDBIRTH AND SUGERY REVIEW OF SYSTEMS REVIEWED BY: PROVIDER: NYASIA SANCHEZ . CONSTITUTIONAL: ANY CHANGE IN YOUR MEDICAL CONDITION? NO . CHILLS NO . FEVER NO . INFECTION: DO YOU HAVE NEW INFECTIONS? NO . DO YOU HAVE HISTORY OF MRSA? NO . MUSCULOSKELETAL: ANY NEW PATTERNS OF PAIN OR NUMBNESS? NO . GASTROENTEROLOGY: ANY NEW CHANGE IN BOWEL CONTROL? NO . GENITOURINARY: ANY NEW CHANGE IN BLADDER CONTROL? NO . IS THERE A CHANCE YOU COULD BE ? NO . HEMATOLOGY/LYMPH: DO YOU TAKE ANY BLOOD THINNERS? (FOR EXAMPLE- COUMADIN, PLAVIX, AGGRENOX, PLATEL, PRADAXA, OR XARELTO) NO . WHEN WAS YOUR LAST DOSE? DATE: TIME: . NEUROLOGY: HAVE YOU FALLEN IN THE PAST 12 MONTHS? NO . ANY NEW EXTREMITY NUMBNESS OR WEAKNESS? NO . CARDIOLOGY: DO YOU HAVE A PACEMAKER OR DEFIBRILLATOR? NO . RESPIRATORY: HAVE YOU BEEN SICK IN THE PAST WEEK? NO . FEVER NO . FLU LIKE SYMPTOMS? NO . COUGH NO . INTEGUMENTARY: DO YOU HAVE ANY RASHES OR OPEN SORES? NO . ALLERGIC/IMMUNO: ARE YOU ALLERGIC TO IV DYE? NO . ANY NEW ALLERGIES? NO . PSYCHIATRIC: DO YOU HAVE THOUGHTS OF HURTING YOURSELF OR SOMEONE ELSE? NO . ARE YOU ABUSED, NEGLECTED, OR IN AN UNSAFE ENVIRONMENT? NO . ENDOCRINOLOGY: ARE YOU DIABETIC? YES . OTHER: DO YOU NEED ANY PRESCRIPTIONS? CYMBALTA , CYCLOBENZAPRINE . IF YES, PLEASE LIST: ____ . ANY NEW PROBLEMS WITH YOUR MEDICATIONS? NO . WHEN DID YOU LAST EAT? ____ . WHEN DID YOU LAST DRINK? ____ . WHAT DID YOU LAST DRINK? ____ . NAME OF PERSON DRIVING YOU HOME? ____ . DO YOU HAVE ANY OTHER QUESTIONS OR CONCERNS RECEIVED FLU VACCINE LAST WEEK . VITAL SIGNS WT 199.4 LBS, HT 67 IN, BMI 31.23 INDEX, BP 139/85 MM HG, HR 71 /MIN, RR 16 /MIN, TEMP 97.8 F, OXYGEN SAT % 97%, NA INITIALS SC 08:58, REVIEWED BY: EM. EXAMINATION GENERAL EXAMINATION: GENERALNO ACUTE DISTRESS, WELL NOURISHED AND HYDRATED. PSYCHAPPROPRIATE MOOD AND AFFECT . LUNGS:CLEAR TO AUSCULTATION BILATERALLY, NO WHEEZES, RHONCHI, RALES. HEART:NO MURMURS, REGULAR RATE AND RHYTHM. ASSESSMENTS FIBROMYALGIA - M79.7 (PRIMARY) TREATMENT FIBROMYALGIA REFILL CYCLOBENZAPRINE HCL TABLET, 10 MG, 1 TABLET NEEDED, ORALLY, Q8H PRN, 30 DAYS, 90 REFILL DULOXETINE HCL CAPSULE DELAYED RELEASE PARTICLES, 60 MG, 1 CAPSULE, ORALLY, DAILY, 90 DAYS, 90 CAPSULE, REFILLS 2 REFILL CYMBALTA CAPSULE DELAYED RELEASE PARTICLES, 30 MG, 1 CAPSULE, ORALLY, ONCE A DAY, 90 DAY(S), 90 CAPSULE, REFILLS 2 CLINICAL NOTES: 49-YEAR-OLD FEMALE IN FOR CHRONIC PAIN FOLLOW-UP. GIVEN PRESENTING SYMPTOMS AND RESULTS OF PHYSICAL EXAMINATION RECOMMENDED CONTINUATION OF CURRENT MEDICATION REGIMEN WITH FOLLOW-UP IN 3 MONTHS. PATIENT HAS EXPRESSED UNDERSTANDING OF AND WAS IN AGREEMENT WITH TREATMENT PLAN. GIVEN TIME TO ASK QUESTIONS AND EXPRESS CONCERNS. PROCEDURE CODES FA211 ESTABILISHED PATIENT [facility] CHARGE DISPOSITION & COMMUNICATION FOLLOW UP 3 MONTHS (REASON: CHRONIC PAIN) ELECTRONICALLY SIGNED BY TOMASZ ALEJO ON 08/21/2019 AT 08:43 AM EDT DISCLAIMER : THIS IS A VISIT SUMMARY EXTRACTED FROM THE [employer] CHART. IT IS NOT A COPY OF THE [employer] PROGRESS NOTE. ROMIE
== END ==
LOC: M PAIN 08:45
PROVIDERS: ATTEND Family Medicine
DX: M79.7 Fibromyalgia (principal); K21.9 Gastro-esophageal reflux disease without esophagitis; E11.9 Type 2 diabetes mellitus without complications; E78.5 Hyperlipidemia, unspecified; Z86.59 Personal history of other mental and behavioral disorders; G25.81 Restless legs syndrome; G62.9 Polyneuropathy, unspecified; F17.210 Nicotine dependence, cigarettes, uncomplicated; Z88.0 Allergy status to penicillin; Z88.5 Allergy status to narcotic agent; Z88.6 Allergy status to analgesic agent; Z88.8 Allergy status to other drugs, medicaments and biological substances; Z79.84 Long term (current) use of oral hypoglycemic drugs; Z79.899 Other long term (current) drug therapy

== ENCOUNTER → 2020-02-12 | Outpatient (REF) | payer MEDICARE ==
[~2020-02-12] MED LIST changes: +CYCL-707 PO; -CYCL10TA PO
[2020-02-12 18:19] LABS: APPEARANCE, URINE CLEAR (CLEAR); BACTERIA, URINE AUTO NEGATIVE (NEGATIVE); BILIRUBIN, URINE AUTO 1+ (NEGATIVE); BLOOD, URINE BLOOD NEGATIVE (NEGATIVE); COLOR, URINE AMBER (YELLOW); GLUCOSE, URINE (UA) AUTO 3+ mg/dL (NEGATIVE); KETONE, URINE AUTO TRACE mg/dL (NEGATIVE); LEUKOCYTE ESTERASE, URINE AUTO NEGATIVE (NEGATIVE); MUCUS, URINE SMALL (NEGATIVE); NITRITE, URINE AUTO NEGATIVE (NEGATIVE); PROTEIN, URINE AUTO 1+ mg/dL (NEGATIVE); RBC, URINE AUTO 1 /HPF (0-3); SPECIFIC GRAVITY URINE AUTO 1.032 (1.002-1.035); SQUAMOUS EPITHELIAL CELL UR AU 4 /HPF (0-6); WBC, URINE AUTO 2 /HPF (0-3)
== END ==
LOC: M LAB REF 17:16
PROVIDERS: ATTEND Nurse Practitioner Family
DX: N39.0 Urinary tract infection, site not specified (principal); R30.0 Dysuria

== ENCOUNTER → 2020-04-21 | Outpatient (REF) | payer MEDICARE, OTHER ==
[2020-04-21 11:42] LABS: BASO % 0.4 % (0.0-1.0); EOS # 0.1 10^3/uL (0.0-0.5); EOS % 0.9 % (0.0-3.0); HEMOGLOBIN 12.3 g/dl (12.0-15.5); LYMPH # 2.2 10^3/uL (1.5-5.0); LYMPH % 31.6 % (24.0-44.0); MEAN CORPUSCULAR HEMOGLOBIN 28.7 pg (27.0-33.0); MEAN CORPUSCULAR HGB CONC 31.5 g/dl (32.0-36.5); MEAN CORPUSCULAR VOLUME 90.9 fl (80.0-96.0); MONO # 0.5 10^3/uL (0.0-0.8); MONO % 7.5 % (0.0-5.0); NEUTROPHILS # 4.1 10^3/uL (1.5-8.5); NEUTROPHILS % 59.2 % (36.0-66.0); PLATELET COUNT, AUTOMATED 463 10^3/uL (150-450); RED BLOOD COUNT 4.29 10^6/uL (4.00-5.40); WHITE BLOOD COUNT 6.9 10^3/uL (4.0-10.0)
[2020-04-21 12:06] LABS: ALBUMIN 3.6 GM/DL (3.2-5.2); ALT/SGPT 19 U/L (12-78); BILIRUBIN,TOTAL 0.3 MG/DL (0.2-1.0); BLOOD UREA NITROGEN 10 MG/DL (7-18); CALCIUM LEVEL 9.2 MG/DL (8.5-10.1); CARBON DIOXIDE LEVEL 24 MEQ/L (21-32); CHLORIDE LEVEL 103 MEQ/L (98-107); CHOLESTEROL LEVEL 362 MG/DL (<200); CREATININE FOR GFR 0.95 MG/DL (0.55-1.30); GLOMERULAR FILTRATION RATE > 60.0 (>58); GLUCOSE, FASTING 226 MG/DL (70-100); HDL CHOLESTEROL 50 MG/DL (>40); NON-HDL-C 312 MG/DL; POTASSIUM SERUM 4.6 MEQ/L (3.5-5.1); SODIUM LEVEL 137 MEQ/L (136-145); TOTAL 25(OH) VITAMIN D 9.5 NG/ML (30.0-100.0); TOTAL PROTEIN 7.1 GM/DL (6.4-8.2); TRIGLYCERIDES LEVEL 543 MG/DL (<150)
[2020-04-21 15:13] LABS: HEMOGLOBIN A1c 8.9 %
== END ==
LOC: M LAB REF 11:20
PROVIDERS: ATTEND Family Medicine
DX: E11.9 Type 2 diabetes mellitus without complications (principal); R60.0 Localized edema

== ENCOUNTER → 2020-07-22 | Outpatient (CLI) | payer OTHER | LOC: M PAIN 10:13 | PROVIDERS: ATTEND Family Medicine | DX: M79.7 Fibromyalgia (principal) ==

== ENCOUNTER → 2020-10-22 | Outpatient (CLI) | payer MEDICARE ==
--- NOTE | 2020-10-28 05:08 | ECWPNPC ---
PATIENT NAME: MITCHELL AYALA : 1970 GENDER: FEMALE VISIT DATE: 10/22/2020 DISCHARGE DATE: 10/22/20 1053 VISIT LOCKED DATE TIME: PHYSICIAN: ISABEL JOHNSON RESOURCE: ISABEL JOHNSON REASON FOR APPOINTMENT 1. CHRONIC PAIN HISTORY OF PRESENT ILLNESS FALL RISK SCREENING: SCREENING :NO FALLS REPORTED IN THE LAST YEAR 50-YEAR-OLD FEMALE IN FOR CHRONIC PAIN FOLLOW-UP. PATIENT ADMITS THAT SHE HAS NOT BEEN ON HER CYMBALTA SINCE MAY DUE TO A PHARMACY ERROR. SHE RATES HER PAIN CURRENTLY AT A 8 OUT OF 10. PAIN CENTER INTAKE QUESTIONS: DO YOU HAVE A HISTORY OF MRSA? :NO DO YOU TAKE A BLOOD THINNERS? :NO DO YOU HAVE ANY BLEEDING DISORDERS? :NO ANY NEW NUMBNESS OR WEAKNESS IN YOUR LEGS OR ARMS? :NO ANY PACEMAKER,DEFIBRILLATOR, OR DORSAL COLUMN STIMULATOR? :NO DO YOU HAVE ANY RASHES OR OPEN SORES? :NO ARE YOU ALLERGIC TO IV DYE? :NO ARE YOU DIABETIC? :YES ANY NEW PROBLEMS WITH YOUR MEDICATIONS? :NO HAVE YOU RECEIVED A VACCINE IN THE PAST 30 DAYS? :NO DO YOU PLAN TO RECEIVE A VACCINE IN THE NEXT 21 DAYS? :NO DO YOU NEED ANY PRESCRIPTION? :NO DO YOU TAKE ANY IMMUNOSUPPRESSIVE MEDICATIONS? :NO IS THERE A CHANCE YOU COULD BE ? :NO ARE YOU BREAST FEEDING? :NO GENERAL: - - -. PAIN SCREENING: PATIENT HAS A COMPLAINT OF ACUTE OR CHRONIC PAIN :YES LOCATION OF PAIN:OTHER: WHOLE BODY INTENSITY OF PAIN (SCALE OF 1 TO 10):8 WHAT DOES YOUR PAIN FEEL LIKE:ACHING, CONTINOUS, SHARP, TENDER PAIN IS INCREASED BY:ACTIVITIES, OTHERS STANDING,WALKING PAIN IS DECREASED BY:USE OF PAIN MEDICATIONS, OTHERS PAIN CREAM NURSING NOTE: - - -. CURRENT MEDICATIONS TAKING PRILOSEC 20 MG CAPSULE DELAYED RELEASE 1 CAP ORALLY BID TAKING TYLENOL EXTRA STRENGTH 500 MG TABLET 2 TABLET NEEDED ORALLY EVERY 6 HRS TAKING METFORMIN HCL 1000 MG TABLET 1 TABLET WITH MEALS ORALLY TWICE A DAY TAKING EXCEDRIN MIGRAINE 250-250-65 MG TABLET 2 TABLETS NEEDED ORALLY EVERY 6 HRS TAKING BENADRYL ALLERGY 25 MG TABLET 1 TABLET NEEDED ORALLY EVERY 6 HRS TAKING IBUPROFEN 600 MG TABLET 1 TABLET WITH FOOD OR MILK NEEDED ORALLY THREE TIMES A DAY TAKING OXYBUTYNIN CHLORIDE ER 5 MG TABLET EXTENDED RELEASE 24 HOUR 1 TABLET ORALLY BID, NOTES: OUT OF THIS MED SINCE A MONTH AGO TAKING CYCLOBENZAPRINE HCL 10 MG TABLET 1 TABLET NEEDED ORALLY Q8H PRN TAKING DULOXETINE HCL 60 MG CAPSULE DELAYED RELEASE PARTICLES 1 CAPSULE ORALLY DAILY TAKING CYMBALTA 30 MG CAPSULE DELAYED RELEASE PARTICLES 1 CAPSULE ORALLY ONCE A DAY TAKING FLUOXETINE HCL 10 MG CAPSULE 1 CAPSULE ORALLY ONCE A DAY TAKING TRIAMTERENE-HCTZ 37.5-25 MG TABLET 1 TABLET IN THE MORNING ORALLY NEEDED DAILY, NOTES: NEEDED NOT-TAKING ATORVASTATIN CALCIUM 10 MG TABLET 1 CAP ORALLY DAILY NOT-TAKING GLIPIZIDE 5 MG TABLET 1 TABLET ORALLY ONCE A DAY MEDICATION LIST REVIEWED AND RECONCILED WITH THE PATIENT PAST MEDICAL HISTORY GERD BACK AND NECK PAIN FIBROMYALGIA DIABETIC HYPERLIPIDEMIA TENDONITIS ? LUPUS DEPRESSION/ANXIETY RESTLESS LEG SYNDROME NEUROPATHY ACUTE RIGHT HIP PAIN ALLERGIES PENICILLIN (FOR ALLERGIES USE ONLY): ANAPHYLAXIS - ALLERGY MOTRIN: NAUSEA/VOMITING - SIDE EFFECTS CODEINE PHOSPHATE (FOR ALLERGIES USE ONLY): NAUSEA/VOMITING - SIDE EFFECTS MORPHINE SULFATE: NAUSEA/VOMITING - SIDE EFFECTS MILNACIPRAN HCL: NAUSEA/VOMITING - SIDE EFFECTS SAVELLA: FLUSHING - SIDE EFFECTS GABAPENTIN: RASH - ALLERGY OXYCODONE: ITCHING - ALLERGY LORATADINE: ITCHNG/RASH - ALLERGY SURGICAL HISTORY LEFT WRIST WITH BLADDER REPAIR ALL MAXILLARY TEETH PULLED 2018 FAMILY HISTORY FATHER: ALIVE, DOESN'T KNOW HIS HISTORY MOTHER: , CERVICAL CANCER, DIAGNOSED WITH OTHER MALIGNANT NEOPLASM OF UNSPECIFIED SITE 1 BROTHER(S) . 3 SON(S) - HEALTHY. SOCIAL HISTORY GENERAL: TOBACCO USE ARE YOU A:CURRENT SMOKER ARE YOU INTERESTED IN QUITTING?THINKING ABOUT QUITTING CHANTIX IS TOO EXPENSIVE PREVIOUS QUIT ATTEMPTS?YES, WITHIN THE LAST 6 MONTHS. COUNSELED THE PATIENT ON SMOKING CESSATION, EDUCATION [id number]/21/2019 HOW MANY CIGARETTES A DAY DO YOU SMOKE?- PATIENT COUNSELED ON THE DANGERS OF TOBACCO USE AND URGED TO QUIT:10/22/2020 LATEX QUESTIONNAIRE LATEX ALLERGY : HAVE YOU EVER DEVELOPED ANY TYPE OF REACTION AFTER HANDLING LATEX PRODUCTS SUCH RUBBER GLOVES, CONDOMS, DIAPHRAGMS, BALLOONS, SOCKS, OR UNDERWEAR?NO LATEX ALLERGY : HAVE YOU EVER DEVELOPED ANY TYPE OF REACTION DURING OR AFTER DENTAL APPOINTMENT, VAGINAL/RECTAL EXAMINATION, SURGICAL PROCEDURE, OR ANY OTHER EXPOSURE?NO DATE ASKED : 01/11/2019 LATEX RISK : HAVE YOU EVER HAD ANY DIFFICULTY BREATHING OR HIVES AFTER EATING OR HANDLING ANY FRUITS, OR VEGETABLES; SUCH KIWI, BANANAS, STONE FRUITS, OR CHESTNUTSNO LATEX RISK : DO YOU HAVE A PREVIOUS PERSONAL HISTORY OF MORE THAN NINE SURGERIES, SPINA BIFIDA, OR REPEATED CATHERIZATIONS? NO LATEX RISK : ARE YOU FREQUENTLY EXPOSED TO LATEX PRODUCTS IN YOUR OCCUPATION?NO ALCOHOL SCREENING DID YOU HAVE A DRINK CONTAINING ALCOHOL IN THE PAST YEAR?NO POINTS0 INTERPRETATIONNEGATIVE RECREATIONAL DRUG USE DRUG USE?NO JAIN[employer] [id number] [employer] L[employer] LANGUAGES SPOKEN:BANGLADESHI EDUCATION LEVEL OF EDUCATION:NOT FINISHED COLLEGE LEARNING BARRIERS / SPECIAL NEEDS BARRIERS TO LEARNING?NO HEARING IMPAIRED?NO VISION IMPAIRED?NO COGNITIVELY IMPAIRED?NO READINESS TO LEARN?YES LEARNING PREFERENCES?YES :BOOKLETS, HANDOUTS LEARNING CAPABILITIES PRESENT?YES EMOTIONAL BARRIERS?NO SPECIAL DEVICES?YES :CANE OCCASSIOANALLY BAKERY DECORATOR NEEDED?NO DOMESTIC VIOLENCE DO YOU FEEL SAFE IN YOUR ENVIRONMENT?YES PAIN CLINIC PFS, CLERGY, PUBLIC HEALTH REFERRALS PFS REFERRAL NEEDED?NO CLERGY REFERRAL NEEDED?NO PUBLIC HEALTH REFERRAL NEEDED?NO WAS THE PROVIDER NOTIFIED OF ANY PERTINENT INFO? N/A HAS THE PATIENT BEEN EDUCATED REGARDING HIS/HER PLAN OF CARE?YES HAS THE PATIENT BEEN EDUCATED REGARDING PAIN, THE RISK FOR PAIN, THE IMPORTANCE OF EFFECTIVE PAIN MANAGEMENT, AND THE PAIN ASSESSMENT PROCESS?YES ADVANCE DIRECTIVE ADVANCE DIRECTIVE DISCUSSED WITH PATIENT:YES PT DOES NOT HAVE ANY ADVANCED DIRECTIVES AND SHE DECLINES INFOMATION ON HCP AT THIS TIME. HOSPITALIZATION/MAJOR DIAGNOSTIC PROCEDURE RELATED TO CHILDBIRTH AND SUGERY REVIEW OF SYSTEMS CONSTITUTIONAL: ANY RECENT FEVER NO . CHILLS NO . WEIGHT CHANGE OF UNKNOWN REASONS NO . GASTROENTEROLOGY: NEW UNEXPLAINABLE CHANGES IN BOWEL CONTROL NO . CONSTIPATION NO . GENITOURINARY: ANY NEW CHANGE IN BLADDER CONTROL? NO . NEUROLOGY: NEW ONSET DIZZINESS OR NEUROLOGICAL CHANGES NOT MENTIONED NO . NEW NUMBNESS OR PAIN PATTERNS NOT MENTIONED AND PERTINENT TO TODAY'S VISIT NO . CARDIOLOGY: NEW CHEST PRESSURE NO . NEW CHEST PAIN NO . RESPIRATORY: UNEXPLAINABLE COUGH NO . NEW SHORTNESS OF BREATH NO . VITAL SIGNS WT 206.0 LBS, HT 67 IN, BMI 32.26 INDEX, BP 146/88 MM HG, HR 115 /MIN, RR 18 /MIN, TEMP 98.0 F, OXYGEN SAT % 100%, SAFE IN ENV? (Y/N) YES, NA INITIALS AW 1004, REVIEWED BY: GUILHERME PHILLIP. EXAMINATION GENERAL EXAMINATION: GENERALNO ACUTE DISTRESS, WELL NOURISHED AND HYDRATED. PSYCHAPPROPRIATE MOOD AND AFFECT . LUNGS:CLEAR TO AUSCULTATION BILATERALLY, NO WHEEZES, RHONCHI, RALES. HEART: HEART RATE IRREGULAR. EXTRA BEAT NOTED.. ASSESSMENTS FIBROMYALGIA - M79.7 (PRIMARY) TREATMENT FIBROMYALGIA REFILL DULOXETINE HCL CAPSULE DELAYED RELEASE PARTICLES, 60 MG, 1 CAPSULE, ORALLY, DAILY, 90 DAYS, 90 CAPSULE, REFILLS 2 NOTES: 50-YEAR-OLD FEMALE IN FOR CHRONIC PAIN FOLLOW-UP. GIVEN PRESENTING SYMPTOMS RECOMMEND RESTARTING DULOXETINE 60 MG WITH FOLLOW-UP IN ONE MONTH TO DETERMINE EFFICACY OF TREATMENT. PATIENT EXPRESSED UNDERSTANDING OF WAS IN AGREEMENT WITH TREATMENT PLAN. GIVEN TIME TO ASK QUESTIONS AND EXPRESS CONCERNS. . CLINICAL NOTES: 49-YEAR-OLD FEMALE IN FOR CHRONIC PAIN FOLLOW-UP. GIVEN PRESENTING SYMPTOMS AND RESULTS OF PHYSICAL EXAMINATION RECOMMENDED CONTINUATION OF CURRENT MEDICATION REGIMEN WITH FOLLOW-UP IN 3 MONTHS. PATIENT HAS EXPRESSED UNDERSTANDING OF AND WAS IN AGREEMENT WITH TREATMENT PLAN. GIVEN TIME TO ASK QUESTIONS AND EXPRESS CONCERNS. OTHERS REFILL DULOXETINE HCL CAPSULE DELAYED RELEASE PARTICLES, 60 MG, 1 CAPSULE, ORALLY, DAILY, 30 DAY(S), 30 CAPSULE(S), REFILLS 2 PROCEDURE CODES FA211 ESTABILISHED PATIENT [facility] CHARGE DISPOSITION & COMMUNICATION FOLLOW UP 4 WEEKS (REASON: MEDICATION) ELECTRONICALLY SIGNED BY TOMASZ ALEJO ON 10/27/2020 AT 09:37 AM EST DISCLAIMER : THIS IS A VISIT SUMMARY EXTRACTED FROM THE [employer] CHART. IT IS NOT A COPY OF THE [employer] PROGRESS NOTE. MTDD
== END ==
LOC: M PAIN 10:00
PROVIDERS: ATTEND Family Medicine
DX: M79.7 Fibromyalgia (principal); E11.40 Type 2 diabetes mellitus with diabetic neuropathy, unspecified; K21.9 Gastro-esophageal reflux disease without esophagitis; G25.81 Restless legs syndrome; F17.210 Nicotine dependence, cigarettes, uncomplicated; Z86.59 Personal history of other mental and behavioral disorders; Z88.0 Allergy status to penicillin; Z88.5 Allergy status to narcotic agent; Z88.6 Allergy status to analgesic agent; Z88.8 Allergy status to other drugs, medicaments and biological substances; Z79.84 Long term (current) use of oral hypoglycemic drugs; Z79.899 Other long term (current) drug therapy

== ENCOUNTER → 2021-01-21 | Outpatient (CLI) | payer MEDICARE, OTHER ==
[~2021-01-21] MED LIST changes: +GABA-282; -GABA-843
--- NOTE | 2021-01-23 04:07 | ECWPNPC ---
PATIENT NAME: MITCHELL AYALA : 1970 GENDER: FEMALE VISIT DATE: 01/21/2021 DISCHARGE DATE: 01/21/21958 VISIT LOCKED DATE TIME: PHYSICIAN: ISABEL JOHNSON RESOURCE: ISABEL JOHNSON REASON FOR APPOINTMENT 1. MYALGIA/GENERALIZED BACK PAIN HISTORY OF PRESENT ILLNESS DEPRESSION SCREENING: PHQ-2 (2015 EDITION) LITTLE INTEREST OR PLEASURE IN DOING THINGS?NOT AT ALL FEELING DOWN, DEPRESSED, OR HOPELESS?NOT AT ALL TOTAL SCORE0 50-YEAR-OLD FEMALE IN FOR CHRONIC PAIN FOLLOW-UP. SHE RATES HER PAIN CURRENTLY AT AN 8 OUT OF 10 AND DESCRIBES IT CONTINUOUS, THROBBING, AND SHOOTING. SHE FEELS HER MEDICATIONS ARE HELPFUL AND DENIES MED SIDE EFFECTS AT THIS TIME. GENERAL: -. FALL RISK SCREENING: SCREENING ONE FALL REPORTED IN THE LAST YEAR WITH INJURY. PATIENT DID NOT SEEK IMMEDIATE MEDICAL TREATMENT.. PAIN SCREENING: PATIENT HAS A COMPLAINT OF ACUTE OR CHRONIC PAIN :YES LOCATION OF PAIN:LOW BACK, OTHER: GENERALIZED INTENSITY OF PAIN (SCALE OF 1 TO 10):8 WHAT DOES YOUR PAIN FEEL LIKE:CONTINOUS, THROBBING, SHOOTING DURATION:CONTINOUS, AWAKENS FROM SLEEP PAIN IS INCREASED BY:ACTIVITIES, PROLONGED STANDING PAIN IS DECREASED BY:USE OF PAIN MEDICATIONS, SITTING NURSING NOTE: -. PAIN CENTER INTAKE QUESTIONS: DO YOU HAVE A HISTORY OF MRSA? :NO DO YOU TAKE A BLOOD THINNERS? :NO DO YOU HAVE ANY BLEEDING DISORDERS? :NO ANY NEW NUMBNESS OR WEAKNESS IN YOUR LEGS OR ARMS? :NO ANY PACEMAKER,DEFIBRILLATOR, OR DORSAL COLUMN STIMULATOR? :NO DO YOU HAVE ANY RASHES OR OPEN SORES? :NO ARE YOU ALLERGIC TO IV DYE? :NO ARE YOU DIABETIC? :YES TYPE II ANY NEW PROBLEMS WITH YOUR MEDICATIONS? :NO HAVE YOU RECEIVED A VACCINE IN THE PAST 30 DAYS? :YES IF SO WHAT VACCINE AND WHEN? FIRST COVID VACCINATION 01/21/2021 DO YOU PLAN TO RECEIVE A VACCINE IN THE NEXT 21 DAYS? :YES IF SO WHAT VACCINE AND WHEN? SECOND COVID VACCINATION DUE 02/20/2021 DO YOU NEED ANY PRESCRIPTION? :YES DULOXETINE DO YOU TAKE ANY IMMUNOSUPPRESSIVE MEDICATIONS? :NO DO YOU HAVE ANY KIDNEY OR LIVER DISEASE? :NO IS THERE A CHANCE YOU COULD BE ? :NO ARE YOU BREAST FEEDING? :NO CURRENT MEDICATIONS TAKING PRILOSEC 20 MG CAPSULE DELAYED RELEASE 1 CAP ORALLY BID TAKING TYLENOL EXTRA STRENGTH 500 MG TABLET 2 TABLET NEEDED ORALLY EVERY 6 HRS TAKING METFORMIN HCL 1000 MG TABLET 1 TABLET WITH MEALS ORALLY TWICE A DAY TAKING EXCEDRIN MIGRAINE 250-250-65 MG TABLET 2 TABLETS NEEDED ORALLY EVERY 6 HRS TAKING BENADRYL ALLERGY 25 MG TABLET 1 TABLET NEEDED ORALLY EVERY 6 HRS TAKING IBUPROFEN 600 MG TABLET 1 TABLET WITH FOOD OR MILK NEEDED ORALLY THREE TIMES A DAY TAKING OXYBUTYNIN CHLORIDE ER 5 MG TABLET EXTENDED RELEASE 24 HOUR 1 TABLET ORALLY BID, NOTES: OUT OF THIS MED SINCE A MONTH AGO TAKING CYMBALTA 30 MG CAPSULE DELAYED RELEASE PARTICLES 1 CAPSULE ORALLY ONCE A DAY TAKING FLUOXETINE HCL 10 MG CAPSULE 1 CAPSULE ORALLY ONCE A DAY TAKING TRIAMTERENE-HCTZ 37.5-25 MG TABLET 1 TABLET IN THE MORNING ORALLY NEEDED DAILY, NOTES: NEEDED TAKING DULOXETINE HCL 60 MG CAPSULE DELAYED RELEASE PARTICLES 1 CAPSULE ORALLY DAILY TAKING CYCLOBENZAPRINE HCL 10 MG TABLET 1 ORALLY Q8H PRN UNKNOWN ATORVASTATIN CALCIUM 10 MG TABLET 1 CAP ORALLY DAILY UNKNOWN GLIPIZIDE 5 MG TABLET 1 TABLET ORALLY ONCE A DAY MEDICATION LIST REVIEWED AND RECONCILED WITH THE PATIENT PAST MEDICAL HISTORY GERD BACK AND NECK PAIN FIBROMYALGIA DIABETIC HYPERLIPIDEMIA TENDONITIS ? LUPUS DEPRESSION/ANXIETY RESTLESS LEG SYNDROME NEUROPATHY ACUTE RIGHT HIP PAIN ALLERGIES PENICILLIN (FOR ALLERGIES USE ONLY): ANAPHYLAXIS - ALLERGY MOTRIN: NAUSEA/VOMITING - SIDE EFFECTS CODEINE PHOSPHATE (FOR ALLERGIES USE ONLY): NAUSEA/VOMITING - SIDE EFFECTS MORPHINE SULFATE: NAUSEA/VOMITING - SIDE EFFECTS MILNACIPRAN HCL: NAUSEA/VOMITING - SIDE EFFECTS SAVELLA: FLUSHING - SIDE EFFECTS GABAPENTIN: RASH - ALLERGY OXYCODONE: ITCHING - ALLERGY LORATADINE: ITCHNG/RASH - ALLERGY SOCIAL HISTORY GENERAL: TOBACCO USE ARE YOU A:CURRENT SMOKER HOW MANY CIGARETTES A DAY DO YOU SMOKE?21-30 ARE YOU INTERESTED IN QUITTING?THINKING ABOUT QUITTING CHANTIX IS TOO EXPENSIVE PATIENT COUNSELED ON THE DANGERS OF TOBACCO USE AND URGED TO QUIT:10/22/2020 COUNSELED THE PATIENT ON SMOKING CESSATION, EDUCATION [id number]/21/2019 PREVIOUS QUIT ATTEMPTS?YES, WITHIN THE LAST 6 MONTHS. LATEX QUESTIONNAIRE LATEX ALLERGY : HAVE YOU EVER DEVELOPED ANY TYPE OF REACTION AFTER HANDLING LATEX PRODUCTS SUCH RUBBER GLOVES, CONDOMS, DIAPHRAGMS, BALLOONS, SOCKS, OR UNDERWEAR?NO LATEX ALLERGY : HAVE YOU EVER DEVELOPED ANY TYPE OF REACTION DURING OR AFTER DENTAL APPOINTMENT, VAGINAL/RECTAL EXAMINATION, SURGICAL PROCEDURE, OR ANY OTHER EXPOSURE?NO LATEX RISK : HAVE YOU EVER HAD ANY DIFFICULTY BREATHING OR HIVES AFTER EATING OR HANDLING ANY FRUITS, OR VEGETABLES; SUCH KIWI, BANANAS, STONE FRUITS, OR CHESTNUTSNO LATEX RISK : DO YOU HAVE A PREVIOUS PERSONAL HISTORY OF MORE THAN NINE SURGERIES, SPINA BIFIDA, OR REPEATED CATHERIZATIONS? NO LATEX RISK : ARE YOU FREQUENTLY EXPOSED TO LATEX PRODUCTS IN YOUR OCCUPATION?NO DATE ASKED : 01/21/2021 ALCOHOL USE: OCCASIONAL. ALCOHOL SCREENING DID YOU HAVE A DRINK CONTAINING ALCOHOL IN THE PAST YEAR?NO POINTS0 INTERPRETATIONNEGATIVE RECREATIONAL DRUG USE DRUG USE?NO PENTECOSTAL [id number] [employer]RIAN LANGUAGE LANGUAGES SPOKEN:CROATIAN EDUCATION LEVEL OF EDUCATION:NOT FINISHED COLLEGE LEARNING BARRIERS / SPECIAL NEEDS CHANGE FROM LAST VISIT?NO BARRIERS TO LEARNING?NO HEARING IMPAIRED?NO VISION IMPAIRED?NO COGNITIVELY IMPAIRED?NO READINESS TO LEARN?YES LEARNING PREFERENCES?YES :BOOKLETS, HANDOUTS LEARNING CAPABILITIES PRESENT?YES EMOTIONAL BARRIERS?NO SPECIAL DEVICES?YES :CANE OCCASSIOANALLY DIRECTOR OF SAFETY AND SECURITY NEEDED?NO DOMESTIC VIOLENCE DO YOU FEEL SAFE IN YOUR ENVIRONMENT?YES - PFS REFERRAL NEEDED?NO CLERGY REFERRAL NEEDED?NO PUBLIC HEALTH REFERRAL NEEDED?NO WAS THE PROVIDER NOTIFIED OF ANY PERTINENT INFO? N/A HAS THE PATIENT BEEN EDUCATED REGARDING HIS/HER PLAN OF CARE?YES HAS THE PATIENT BEEN EDUCATED REGARDING PAIN, THE RISK FOR PAIN, THE IMPORTANCE OF EFFECTIVE PAIN MANAGEMENT, AND THE PAIN ASSESSMENT PROCESS?YES ADVANCE DIRECTIVE ADVANCE DIRECTIVE DISCUSSED WITH PATIENT:YES PT DOES NOT HAVE ANY ADVANCED DIRECTIVES AND SHE DECLINES INFOMATION ON HCP AT THIS TIME. REVIEW OF SYSTEMS CONSTITUTIONAL: ANY RECENT FEVER NO . CHILLS NO . WEIGHT CHANGE OF UNKNOWN REASONS NO . GASTROENTEROLOGY: NEW UNEXPLAINABLE CHANGES IN BOWEL CONTROL NO . CONSTIPATION NO . GENITOURINARY: ANY NEW CHANGE IN BLADDER CONTROL? NO . NEUROLOGY: NEW ONSET DIZZINESS OR NEUROLOGICAL CHANGES NOT MENTIONED NO . NEW NUMBNESS OR PAIN PATTERNS NOT MENTIONED AND PERTINENT TO TODAY'S VISIT NO . CARDIOLOGY: NEW CHEST PRESSURE NO . PATIENT DENIES NO . RESPIRATORY: UNEXPLAINABLE COUGH NO . NEW SHORTNESS OF BREATH NO . VITAL SIGNS WT 211.4 LBS, HT 67 IN, BMI 33.11 INDEX, BP 149/89 MM HG, HR 106 /MIN, RR 18 /MIN, TEMP 98.5 F, OXYGEN SAT % 99%, SAFE IN ENV? (Y/N) YES, REVIEWED BY: MARY FERRELL MA. EXAMINATION GENERAL EXAMINATION: GENERALNO ACUTE DISTRESS, WELL NOURISHED AND HYDRATED. PSYCHAPPROPRIATE MOOD AND AFFECT . LUNGS:CLEAR TO AUSCULTATION BILATERALLY, NO WHEEZES, RHONCHI, RALES. HEART:NO MURMURS, REGULAR RATE AND RHYTHM. ASSESSMENTS LUMBOSACRAL SPONDYLOLYSIS - M43.07 (PRIMARY), RISK: (NULL) FIBROMYALGIA - M79.7, RISK: (NULL) TREATMENT LUMBOSACRAL SPONDYLOLYSIS NOTES: 50-YEAR-OLD FEMALE IN FOR CHRONIC PAIN FOLLOW-UP. GIVEN PRESENTING SYMPTOMS RECOMMENDED CONTINUATION OF CURRENT MEDICATION REGIMEN WITH FOLLOW-UP IN 3 MONTHS. PATIENT HAS EXPRESSED UNDERSTANDING OF AND WAS IN AGREEMENT WITH TREATMENT PLAN. GIVEN TIME TO ASK QUESTIONS AND EXPRESS CONCERNS. FIBROMYALGIA REFILL CYMBALTA CAPSULE DELAYED RELEASE PARTICLES, 30 MG, 1 CAPSULE, ORALLY, ONCE A DAY, 30 DAY(S), 30 CAPSULE(S), REFILLS 2 CONTINUE DULOXETINE HCL CAPSULE DELAYED RELEASE PARTICLES, 60 MG, 1 CAPSULE, ORALLY, DAILY, 30 DAY(S), 30 CAPSULE(S), REFILLS 2 PROCEDURE CODES FA211 ESTABILISHED PATIENT [facility] CHARGE DISPOSITION & COMMUNICATION FOLLOW UP 3 MONTHS (REASON: FIBROMYALGIA ) ELECTRONICALLY SIGNED BY TOMASZ ALEJO ON 01/22/2021 AT 12:31 PM EDT DISCLAIMER : THIS IS A VISIT SUMMARY EXTRACTED FROM THE [employer] CHART. IT IS NOT A COPY OF THE [employer] PROGRESS NOTE. ROMIE
== END ==
LOC: M PAIN 09:15
PROVIDERS: ATTEND Family Medicine
DX: M43.07 Spondylolysis, lumbosacral region (principal); M79.7 Fibromyalgia; K21.9 Gastro-esophageal reflux disease without esophagitis; E11.40 Type 2 diabetes mellitus with diabetic neuropathy, unspecified; E78.5 Hyperlipidemia, unspecified; F32.9 Major depressive disorder, single episode, unspecified; F41.9 Anxiety disorder, unspecified; G25.81 Restless legs syndrome; F17.210 Nicotine dependence, cigarettes, uncomplicated; Z79.84 Long term (current) use of oral hypoglycemic drugs; Z79.899 Other long term (current) drug therapy; Z88.0 Allergy status to penicillin; Z88.5 Allergy status to narcotic agent; Z88.8 Allergy status to other drugs, medicaments and biological substances

== ENCOUNTER → 2021-04-21 | Outpatient (CLI) | payer MEDICARE, OTHER ==
[~2021-04-21] MED LIST changes: -DOXY100C37 PO; +DOXY1CAP62 PO
--- NOTE | 2021-04-23 04:32 | ECWPNPC ---
PATIENT NAME: MITCHELL AYALA : 1970 GENDER: FEMALE VISIT DATE: 04/21/2021 DISCHARGE DATE: 04/21/21943 VISIT LOCKED DATE TIME: PHYSICIAN: ISABEL JOHNSON RESOURCE: ISABEL JOHNSON REASON FOR APPOINTMENT 1. FIBROMYALGIA HISTORY OF PRESENT ILLNESS GENERAL: HPI 50-YEAR-OLD FEMALE IN FOR CHRONIC PAIN FOLLOW-UP. SHE RATES HER PAIN CURRENTLY AT AN 8 OUT OF 10. PATIENT DOES ADMIT TO INCREASED PAIN RECENTLY RELATED TO A PINCHED NERVE IN HER RIGHT SHOULDER. SHE FEELS HER MEDICATIONS ARE HELPFUL AND DENIES MED SIDE EFFECTS AT THIS TIME.. -. FALL RISK SCREENING: SCREENING : NO FALLS REPORTED IN THE LAST YEAR. PAIN SCREENING: PATIENT HAS A COMPLAINT OF ACUTE OR CHRONIC PAIN :YES LOCATION OF PAIN:OTHER: GENERALIZED INTENSITY OF PAIN (SCALE OF 1 TO 10):8 WHAT DOES YOUR PAIN FEEL LIKE:ACHING, CONTINOUS, SHARP, STABBING DURATION:CONTINOUS PAIN IS INCREASED BY:ACTIVITIES, PROLONGED STANDING PAIN IS DECREASED BY:OTHERS STATES NOTHING REALLY HELPS HER PAIN RIGHT NOW, ICE TAKES THE EDGE OFF AT TIMES NURSING NOTE: -. PAIN CENTER INTAKE QUESTIONS: DO YOU HAVE A HISTORY OF MRSA? :NO DO YOU TAKE A BLOOD THINNERS? :NO DO YOU HAVE ANY BLEEDING DISORDERS? :NO ANY NEW NUMBNESS OR WEAKNESS IN YOUR LEGS OR ARMS? :NO ANY PACEMAKER,DEFIBRILLATOR, OR DORSAL COLUMN STIMULATOR? :NO DO YOU HAVE ANY RASHES OR OPEN SORES? :NO ARE YOU ALLERGIC TO IV DYE? :NO ARE YOU DIABETIC? :YES ANY NEW PROBLEMS WITH YOUR MEDICATIONS? :NO HAVE YOU RECEIVED A VACCINE IN THE PAST 30 DAYS? :NO DO YOU PLAN TO RECEIVE A VACCINE IN THE NEXT 21 DAYS? :NO DO YOU NEED ANY PRESCRIPTION? :YES DULOXETINE 30MG, DULOXETINE 60 MG DO YOU TAKE ANY IMMUNOSUPPRESSIVE MEDICATIONS? :NO DO YOU HAVE ANY KIDNEY OR LIVER DISEASE? :NO IS THERE A CHANCE YOU COULD BE ? :NO ARE YOU BREAST FEEDING? :NO CURRENT MEDICATIONS TAKING PRILOSEC 20 MG CAPSULE DELAYED RELEASE 1 CAP ORALLY BID TAKING TYLENOL EXTRA STRENGTH 500 MG TABLET 2 TABLET NEEDED ORALLY EVERY 6 HRS TAKING METFORMIN HCL 1000 MG TABLET 1 TABLET WITH MEALS ORALLY TWICE A DAY TAKING EXCEDRIN MIGRAINE 250-250-65 MG TABLET 2 TABLETS NEEDED ORALLY EVERY 6 HRS TAKING BENADRYL ALLERGY 25 MG TABLET 1 TABLET NEEDED ORALLY EVERY 6 HRS TAKING IBUPROFEN 600 MG TABLET 1 TABLET WITH FOOD OR MILK NEEDED ORALLY THREE TIMES A DAY TAKING OXYBUTYNIN CHLORIDE ER 5 MG TABLET EXTENDED RELEASE 24 HOUR 1 TABLET ORALLY BID, NOTES: OUT OF THIS MED SINCE A MONTH AGO TAKING FLUOXETINE HCL 10 MG CAPSULE 1 CAPSULE ORALLY ONCE A DAY TAKING TRIAMTERENE-HCTZ 37.5-25 MG TABLET 1 TABLET IN THE MORNING ORALLY NEEDED DAILY, NOTES: NEEDED TAKING CYMBALTA 30 MG CAPSULE DELAYED RELEASE PARTICLES 1 CAPSULE ORALLY ONCE A DAY TAKING DULOXETINE HCL 60 MG CAPSULE DELAYED RELEASE PARTICLES 1 CAPSULE ORALLY DAILY TAKING CYCLOBENZAPRINE HCL 10 MG TABLET 1 ORALLY Q8H PRN NOT-TAKING ATORVASTATIN CALCIUM 10 MG TABLET 1 CAP ORALLY DAILY NOT-TAKING GLIPIZIDE 5 MG TABLET 1 TABLET ORALLY ONCE A DAY MEDICATION LIST REVIEWED AND RECONCILED WITH THE PATIENT PAST MEDICAL HISTORY GERD BACK AND NECK PAIN FIBROMYALGIA DIABETIC HYPERLIPIDEMIA TENDONITIS ? LUPUS DEPRESSION/ANXIETY RESTLESS LEG SYNDROME NEUROPATHY ACUTE RIGHT HIP PAIN ALLERGIES PENICILLIN (FOR ALLERGIES USE ONLY): ANAPHYLAXIS - ALLERGY MOTRIN: NAUSEA/VOMITING - SIDE EFFECTS CODEINE PHOSPHATE (FOR ALLERGIES USE ONLY): NAUSEA/VOMITING - SIDE EFFECTS MORPHINE SULFATE: NAUSEA/VOMITING - SIDE EFFECTS MILNACIPRAN HCL: NAUSEA/VOMITING - SIDE EFFECTS SAVELLA: FLUSHING - SIDE EFFECTS GABAPENTIN: RASH - ALLERGY OXYCODONE: ITCHING - ALLERGY LORATADINE: ITCHNG/RASH - ALLERGY SOCIAL HISTORY GENERAL: TOBACCO USE ARE YOU A:CURRENT SMOKER ARE YOU INTERESTED IN QUITTING?THINKING ABOUT QUITTING CHANTIX IS TOO EXPENSIVE PREVIOUS QUIT ATTEMPTS?YES, WITHIN THE LAST 6 MONTHS. COUNSELED THE PATIENT ON SMOKING CESSATION, EDUCATION [id number]/21/2019 HOW MANY CIGARETTES A DAY DO YOU SMOKE?- PATIENT COUNSELED ON THE DANGERS OF TOBACCO USE AND URGED TO QUIT:04/21/2021 LATEX QUESTIONNAIRE LATEX ALLERGY : HAVE YOU EVER DEVELOPED ANY TYPE OF REACTION AFTER HANDLING LATEX PRODUCTS SUCH RUBBER GLOVES, CONDOMS, DIAPHRAGMS, BALLOONS, SOCKS, OR UNDERWEAR?NO LATEX ALLERGY : HAVE YOU EVER DEVELOPED ANY TYPE OF REACTION DURING OR AFTER DENTAL APPOINTMENT, VAGINAL/RECTAL EXAMINATION, SURGICAL PROCEDURE, OR ANY OTHER EXPOSURE?NO LATEX RISK : HAVE YOU EVER HAD ANY DIFFICULTY BREATHING OR HIVES AFTER EATING OR HANDLING ANY FRUITS, OR VEGETABLES; SUCH KIWI, BANANAS, STONE FRUITS, OR CHESTNUTSNO LATEX RISK : DO YOU HAVE A PREVIOUS PERSONAL HISTORY OF MORE THAN NINE SURGERIES, SPINA BIFIDA, OR REPEATED CATHERIZATIONS? NO LATEX RISK : ARE YOU FREQUENTLY EXPOSED TO LATEX PRODUCTS IN YOUR OCCUPATION?NO DATE ASKED : 04/21/2021 ALCOHOL USE: OCCASIONAL. ALCOHOL SCREENING DID YOU HAVE A DRINK CONTAINING ALCOHOL IN THE PAST YEAR?NO POINTS0 INTERPRETATIONNEGATIVE RECREATIONAL DRUG USE DRUG USE?NO WORSHIP [id number] [employer] LANGUAGE LANGUAGES SPOKEN:TANZANIAN EDUCATION LEVEL OF EDUCATION:NOT FINISHED COLLEGE LEARNING BARRIERS / SPECIAL NEEDS CHANGE FROM LAST VISIT?NO BARRIERS TO LEARNING?NO HEARING IMPAIRED?NO VISION IMPAIRED?NO COGNITIVELY IMPAIRED?NO READINESS TO LEARN?YES LEARNING PREFERENCES?YES :BOOKLETS, HANDOUTS LEARNING CAPABILITIES PRESENT?YES EMOTIONAL BARRIERS?NO SPECIAL DEVICES?YES :CANE OCCASSIOANALLY CEMENT CONTRACTOR NEEDED?NO DOMESTIC VIOLENCE DO YOU FEEL SAFE IN YOUR ENVIRONMENT?YES - PFS REFERRAL NEEDED?NO CLERGY REFERRAL NEEDED?NO PUBLIC HEALTH REFERRAL NEEDED?NO WAS THE PROVIDER NOTIFIED OF ANY PERTINENT INFO? N/A HAS THE PATIENT BEEN EDUCATED REGARDING HIS/HER PLAN OF CARE?YES HAS THE PATIENT BEEN EDUCATED REGARDING PAIN, THE RISK FOR PAIN, THE IMPORTANCE OF EFFECTIVE PAIN MANAGEMENT, AND THE PAIN ASSESSMENT PROCESS?YES ADVANCE DIRECTIVE ADVANCE DIRECTIVE DISCUSSED WITH PATIENT:YES PT DOES NOT HAVE ANY ADVANCED DIRECTIVES AND SHE DECLINES INFOMATION ON HCP AT THIS TIME. REVIEW OF SYSTEMS CONSTITUTIONAL: ANY RECENT FEVER NO . CHILLS NO . WEIGHT CHANGE OF UNKNOWN REASONS NO . GASTROENTEROLOGY: NEW UNEXPLAINABLE CHANGES IN BOWEL CONTROL NO . CONSTIPATION NO . GENITOURINARY: ANY NEW CHANGE IN BLADDER CONTROL? NO . NEUROLOGY: NEW ONSET DIZZINESS OR NEUROLOGICAL CHANGES NOT MENTIONED NO . NEW NUMBNESS OR PAIN PATTERNS NOT MENTIONED AND PERTINENT TO TODAY'S VISIT NO . CARDIOLOGY: NEW CHEST PRESSURE NO . PATIENT DENIES NO . RESPIRATORY: UNEXPLAINABLE COUGH NO . NEW SHORTNESS OF BREATH NO . VITAL SIGNS WT 211.0 LBS, HT 67 IN, BMI 33.04 INDEX, BP 137/78 MM HG, HR 115 /MIN, RR 18 /MIN, TEMP 95.5 F, OXYGEN SAT % 97%, SAFE IN ENV? (Y/N) YES, NA INITIALS AW 0921, REVIEWED BY: Ruddy WILLIAM RN. EXAMINATION GENERAL EXAMINATION: GENERALNO ACUTE DISTRESS, WELL NOURISHED AND HYDRATED. PSYCHAPPROPRIATE MOOD AND AFFECT . LUNGS:BILATERAL WHEEZES NOTED . HEART:NO MURMURS, REGULAR RATE AND RHYTHM. ASSESSMENTS FIBROMYALGIA - M79.7 (PRIMARY), RISK: (NULL) TREATMENT FIBROMYALGIA REFILL CYMBALTA CAPSULE DELAYED RELEASE PARTICLES, 30 MG, 1 CAPSULE, ORALLY, ONCE A DAY, 90 DAY(S), 90 CAPSULE(S), REFILLS 2 REFILL DULOXETINE HCL CAPSULE DELAYED RELEASE PARTICLES, 60 MG, 1 CAPSULE, ORALLY, DAILY, 90 DAY(S), 90 CAPSULE(S), REFILLS 2 NOTES: 50-YEAR-OLD FEMALE IN FOR CHRONIC PAIN FOLLOW-UP. GIVEN PRESENTING SYMPTOMS RECOMMEND CONTINUATION OF CURRENT MEDICATION REGIMEN WITH FOLLOW-UP IN 3 MONTHS. PATIENT WAS ENCOURAGED TO DISCUSS HER SHOULDER PAIN WITH HER PCP FOR POSSIBLE REFERRAL TO PHYSICAL THERAPY. PATIENT IS EXPRESSED UNDERSTANDING OF AND WAS IN AGREEMENT WITH TREATMENT PLAN. GIVEN TIME QUESTIONS AND EXPRESS CONCERNS. PROCEDURE CODES FA211 ESTABILISHED PATIENT [facility] CHARGE DISPOSITION & COMMUNICATION FOLLOW UP 3 MONTHS (REASON: FIBROMYALGIA ) ELECTRONICALLY SIGNED BY TOMASZ ALEJO ON 04/22/2021 AT 09:02 AM EDT DISCLAIMER : THIS IS A VISIT SUMMARY EXTRACTED FROM THE [employer] CHART. IT IS NOT A COPY OF THE [employer] PROGRESS NOTE. ROMIE
== END ==
LOC: M PAIN 09:15
PROVIDERS: ATTEND Family Medicine
DX: M79.7 Fibromyalgia (principal); K21.9 Gastro-esophageal reflux disease without esophagitis; E11.40 Type 2 diabetes mellitus with diabetic neuropathy, unspecified; E78.5 Hyperlipidemia, unspecified; F32.9 Major depressive disorder, single episode, unspecified; F41.9 Anxiety disorder, unspecified; G25.81 Restless legs syndrome; F17.210 Nicotine dependence, cigarettes, uncomplicated; M54.2 Cervicalgia; M25.551 Pain in right hip; Z79.899 Other long term (current) drug therapy; Z88.0 Allergy status to penicillin; Z88.5 Allergy status to narcotic agent; Z88.6 Allergy status to analgesic agent; Z88.8 Allergy status to other drugs, medicaments and biological substances

== ENCOUNTER → 2022-06-04 | Outpatient (CLI) | payer MEDICARE, OTHER ==
[~2022-06-04] MED LIST changes: -CYMB60CA3 PO; +CYMB60CA4 PO; +DOXY-443 PO; -DOXY1CAP62 PO
== END ==
LOC: M PAIN 09:30
PROVIDERS: ATTEND Nurse Practitioner Family
DX: M79.7 Fibromyalgia (principal); K21.9 Gastro-esophageal reflux disease without esophagitis; E11.40 Type 2 diabetes mellitus with diabetic neuropathy, unspecified; E78.5 Hyperlipidemia, unspecified; F32.A Depression, unspecified; F41.9 Anxiety disorder, unspecified; G25.81 Restless legs syndrome; M25.551 Pain in right hip; E78.00 Pure hypercholesterolemia, unspecified; F17.210 Nicotine dependence, cigarettes, uncomplicated; Z79.84 Long term (current) use of oral hypoglycemic drugs; Z79.1 Long term (current) use of non-steroidal anti-inflammatories (NSAID); Z79.899 Other long term (current) drug therapy; Z88.0 Allergy status to penicillin; Z88.5 Allergy status to narcotic agent; Z88.6 Allergy status to analgesic agent; Z88.8 Allergy status to other drugs, medicaments and biological substances

== ENCOUNTER → 2022-09-14 | Outpatient (CLI) | payer MEDICARE, OTHER | LOC: M PAIN 09:00 | PROVIDERS: ATTEND Nurse Practitioner Family | DX: M54.50 Low back pain, unspecified (principal); K21.9 Gastro-esophageal reflux disease without esophagitis; M79.7 Fibromyalgia; M54.2 Cervicalgia; E11.40 Type 2 diabetes mellitus with diabetic neuropathy, unspecified; M25.551 Pain in right hip; F32.A Depression, unspecified; F41.9 Anxiety disorder, unspecified; G25.81 Restless legs syndrome; E78.00 Pure hypercholesterolemia, unspecified; E78.5 Hyperlipidemia, unspecified; F17.210 Nicotine dependence, cigarettes, uncomplicated; Z79.84 Long term (current) use of oral hypoglycemic drugs; Z79.899 Other long term (current) drug therapy; Z79.1 Long term (current) use of non-steroidal anti-inflammatories (NSAID); Z88.0 Allergy status to penicillin; Z88.5 Allergy status to narcotic agent; Z88.6 Allergy status to analgesic agent; Z88.8 Allergy status to other drugs, medicaments and biological substances ==

== ENCOUNTER → 2023-05-02 | Outpatient (CLI) | payer MEDICARE, OTHER | LOC: M PAIN 09:30 | PROVIDERS: ATTEND Nurse Practitioner Family | DX: M54.50 Low back pain, unspecified (principal); G89.29 Other chronic pain; K21.9 Gastro-esophageal reflux disease without esophagitis; M79.7 Fibromyalgia; E11.40 Type 2 diabetes mellitus with diabetic neuropathy, unspecified; G25.81 Restless legs syndrome; F17.210 Nicotine dependence, cigarettes, uncomplicated; Z86.59 Personal history of other mental and behavioral disorders; Z88.0 Allergy status to penicillin; Z88.5 Allergy status to narcotic agent; Z88.6 Allergy status to analgesic agent; Z88.8 Allergy status to other drugs, medicaments and biological substances; Z79.84 Long term (current) use of oral hypoglycemic drugs; Z79.899 Other long term (current) drug therapy ==

== ENCOUNTER → 2024-03-22 | Outpatient (CLI) | payer OTHER ==
[~2024-03-22] MED LIST changes: +DOXY-323 PO; -DOXY-443 PO; +GLIP5TAB17 PO; -GLIP5TAB8 PO
== END ==
LOC: M OUTALCOH 09:05
PROVIDERS: ATTEND Psychiatry & Neurology Psychiatry
DX: F10.20 Alcohol dependence, uncomplicated (principal); F12.10 Cannabis abuse, uncomplicated; F17.200 Nicotine dependence, unspecified, uncomplicated

== ENCOUNTER → 2024-03-30 | Outpatient (RCR) | payer OTHER | LOC: M OUTALCOH 09:35 | PROVIDERS: ATTEND Psychiatry & Neurology Psychiatry | DX: F10.20 Alcohol dependence, uncomplicated (principal); F12.10 Cannabis abuse, uncomplicated; F17.200 Nicotine dependence, unspecified, uncomplicated ==

== ENCOUNTER 2024-04-26 14:53 | Outpatient (RCR) | payer OTHER | END 2024-04-29 | LOC: M OUTALCOH 14:53 | PROVIDERS: ATTEND Psychiatry & Neurology Psychiatry | DX: F10.20 Alcohol dependence, uncomplicated (principal); F12.10 Cannabis abuse, uncomplicated; F17.200 Nicotine dependence, unspecified, uncomplicated ==